=== PATIENT | male | born 1935 | race Caucasian/White ===

== ENCOUNTER → 2016-08-16 | Outpatient (CLI) | payer MEDICARE, BC ==
[~2016-08-16] MED LIST: ASPI1TAB7 PO; ATOR20TA42 PO; CLOP75 PO; ISOS60 PO; MAGN400T PO; METF-324 PO; NOVOINJ3; PRIL20TA2 PO; RANO500 PO; TAB-TAB PO; TOPR200T PO
[2016-08-16 13:12] LABS: HEMATOCRIT 34.3 % (39.0-51.0); MEAN CELL VOLUME 98.4 FL (80.0-100.0); MEAN CORPUSCULAR HEMOGLOBIN 33.1 PG (27.0-34.0); MEAN CORPUSCULAR HGB CONC 33.6 % (32.0-36.0); PLATELET COUNT 180 TH/MM3 (150-450); RED BLOOD COUNT 3.49 MIL/MM3 (4.50-5.90); RED CELL DISTRIBUTION WIDTH 16.9 % (11.6-17.2); REVIEW FLAG FINAL; WHITE BLOOD COUNT 6.8 TH/MM3 (4.0-11.0)
[2016-08-16 13:26] LABS: ALKALINE PHOSPHATASE 79 U/L (45-117); ALT (GPT) 21 U/L (12-78); ANION GAP 7 MEQ/L (5-15); AST (GOT) 18 U/L (15-37); BICARBONATE 28.2 MEQ/L (21.0-32.0); BLOOD UREA NITROGEN 20 MG/DL (7-18); CHLORIDE 102 MEQ/L (98-107); GLOMERULAR FILTRATION RATE 72 ML/MIN (>89); GLUCOSE,FASTING 122 MG/DL (74-99); HDL CHOLESTEROL 51.3 MG/DL (40.0-60.0); LDL CHOLESTEROL 26 MG/DL (0-99); LDL CHOLESTEROL DIRECT 43 MG/DL (0-99); POTASSIUM 4.3 MEQ/L (3.5-5.1); SODIUM (NA) 137 MEQ/L (136-145); TOTAL BILIRUBIN ADULT 0.6 MG/DL (0.2-1.0)
[2016-08-16 16:44] LABS: BLOOD, URINE NEG (NEG); GLUCOSE,URINE NEG (NEG); KETONE, URINE NEG (NEG); NITRITE,URINE NEG (NEG); PH, URINE 6.5 (5.0-8.5); URINE COLOR YELLOW (YELLW/STRAW)
[2016-08-16 16:56] LABS: MICRO ALBUMIN RANDOM URINE RAW 25.9 MG/L (0.0-30.0)
[2016-08-16 18:23] LABS: HEMOGLOBIN A1a 1.4 %; HEMOGLOBIN A1b 0.9 %; HEMOGLOBIN Ao 83.1 %; HEMOGLOBIN F 2.3 %; HEMOGLOBIN P3 5.2 %
== END ==
LOC: PLAB 09:06
PROVIDERS: ATTEND Family Medicine
DX: E11.9 Type 2 diabetes mellitus without complications (principal); R53.83 Other fatigue; E78.2 Mixed hyperlipidemia; I10 Essential (primary) hypertension
CPT/HCPCS: 36415; 80053; 80061; 81001; 82043; 83036; 83721; 84443; 85027

== ENCOUNTER → 2016-08-17 | Outpatient (CLI) | payer MEDICARE, BC ==
--- NOTE | 2016-08-20 11:53 | RSPPFT ---
DATE OF PROCEDURE: 08/17/16 COMMENTS: The forced vital capacity, FEV1, FEV1/FVC ratio and FEF 25-75 are all normal with no significant improvement after bronchodilator. The total lung capacity is normal with a normal residual volume and a normal RV/TLC ratio. IMPRESSION: This is a normal pulmonary function study. The diffusion capacity is also normal.
== END ==
LOC: HRSP 09:40
PROVIDERS: ATTEND Internal Medicine Cardiovascular Disease
DX: R06.02 Shortness of breath (principal)
CPT/HCPCS: 94060; 94726; 94729

== ENCOUNTER 2017-05-28 13:58 | Observation (INO) | payer MEDICARE, BC ==
[~2017-05-28] VITALS: Ht 170.2 cm; Wt 77.3 kg
[2017-05-28] VITALS (7 sets, daily range): BP systolic 108–167; BP diastolic 54–77; PULSE 69–103; RESP 16–18; TEMP 97.9–99.5; O2SAT 95–96
[~2017-05-28 13:58] MED LIST changes: +ASPI1TAB57 PO; -ASPI1TAB7 PO; -ATOR20TA42 PO; +ATOR40TA16 PO; -CLOP75 PO; +ISOS120T PO; -ISOS60 PO; +LANTUS2P SQ; +LEVA500T33 PO; +LOSA25TA PO; -MAGN400T PO; -METF-324 PO; +METF1000 PO; +METO100T PO; +MULT1TAB46 PO; -NOVOINJ3; -PRIL20TA2 PO; +RANE1000 PO; +RANI150T PO; -RANO500 PO; -TAB-TAB PO; -TOPR200T PO; +VESI5TAB2 PO; +VITA250C3 CHEW; +XARE20TA PO
--- NOTE | 2017-05-28 14:37 | PD ---
HPI Chief Complaint: Diabetic Time Seen by Provider: 14:17 Travel History International Travel<30 days: No Contact w/Intl Traveler<30days: No Traveled to known affect area: No History of Present Illness HPI 82 YO M with PMH of DMT2, A flutter, HLD, PVD, CAD s/p CABG and stents on Xarelto presents to the ED for evaluation after 2 syncopal episodes. Both episodes happened in the morning. Patient states that today the phone was ringing, he stepped out of bed attempting to answer the phone and fell to the ground. He struck his chest on a chair in the fall. He denies hitting his head or loss of consciousness. He states that he took his blood glucose which was 31. He states that he ate right away and his blood glucose was 108 shortly after. On presentation he complains of musculoskeletal pain in the anterior chest wall rated 4/10. No alleviating or exacerbating factors reported. He denies dizziness, chest pain, nausea vomiting. He also states that he is chronically short of breath, states "probably starting a year ago." He states that he had a COPD workup that was negative. He states shortness of breath has not worsened over the last few days. He estimates his Lantus dose to be 40 units nightly. He states that he just finished a course of Levaquin for a foot infection. He states that he had loose stools and nausea with the medications but denies melena or hematochezia. Endorses a history of anemia and currently taking iron supplements. Patient states tetanus immunization is up-to-date. PCP Dr. Neri, podiatry Dr. Carrillo. [facility] Past Medical History Hx Anticoagulant Therapy: Yes Arthritis: Yes Autoimmune Disease: No Blood Disorders: No Anxiety: No Depression: No Heart Rhythm Problems: No Cancer: Yes (CLL AND NOSE (SKIN)) Cardiovascular Problems: Yes High Cholesterol: Yes Chest Pain: Yes Congestive Heart Failure: No Diabetes: Yes Diminished Hearing: No GERD: Yes Genitourinary: No Hypertension: Yes Immune Disorder: No Musculoskeletal: Yes Neurologic: No Psychiatric: No Respiratory: No Myocardial Infarction: No Thyroid Disease: No Past Surgical History AICD: No Cardiac Surgery: Yes (CABG 09-27) Coronary Artery Bypass Graft: Yes (6 VESSELS [place] 2005) Joint Replacement: No Pacemaker: No Thoracic Surgery: Yes Other Surgery: Yes (LOW BACK SURGERY) Social History Alcohol Use: No Tobacco Use: No Substance Use: No Allergies-Medications (Allergen,Severity, Reaction): Coded Allergies: No Known Allergies (Verified Adverse Reaction, Unknown, 05/28/17) Reported Meds & Prescriptions Reported Meds & Active Scripts Active Reported Iron (Ferrous Sulfate) Unknown Strength Tab 1 Tab PO DAILY Novolog Inj (Insulin Aspart) 1,000 Unit/10 Ml Vial 0 SQ TIDAC Sliding Scale as directed. Metoprolol Succinate ER 24 HR (Metoprolol Succinate) 200 Mg Tab 200 Mg PO DAILY Vitamin C (Ascorbic Acid) 250 Mg Chew 500 Mg CHEW DAILY Multi Vitamin Daily (Multiple Vitamin) 1 Tab Tab 1 Tab PO DAILY Aspirin 81 (Aspirin) 81 Mg Tabdr 81 Mg PO DAILY Lantus Inj (Insulin Glargine) 1,000 Unit/10 Ml Vial 40 Units SQ HS Xarelto (Rivaroxaban) 20 Mg Tab 25 Mg PO DAILY Vesicare (Solifenacin) 5 Mg Tab 5 Mg PO DAILY Ranitidine (Ranitidine HCl) 150 Mg Tab 150 Mg PO DAILY Ranexa ER 12 HR (Ranolazine) 1,000 Mg Tab 1,000 Mg PO BID Losartan (Losartan Potassium) 25 Mg Tab 25 Mg PO DAILY Isosorbide Mononitrate ER (Isosorbide Mononitrate) 120 Mg Emeka 120 Mg PO DAILY Metformin (Metformin HCl) 1,000 Mg Tab 1,000 Mg PO BIDPC Atorvastatin (Atorvastatin Calcium) 40 Mg Tab 40 Mg PO HS Review of Systems Except as stated in HPI: all other systems reviewed are Neg Physical Exam Narrative GENERAL: Well-nourished, well-developed white male appearing younger than his stated age in no acute distress. SKIN: Focused skin assessment warm/dry. Linear skin tears on the left wrist 3. No active bleeding. No visible foreign body. HEAD: Normocephalic. Atraumatic. EYES: No scleral icterus. No injection or drainage. PERRLA. EOMI. NECK: Supple, trachea midline. No JVD or lymphadenopathy. CARDIOVASCULAR: Regular rate and rhythm without murmurs, gallops, or rubs. RESPIRATORY: Breath sounds clear and equal bilaterally. No accessory muscle use. GASTROINTESTINAL: Abdomen soft, non-tender, nondistended. Active bowel sounds RECTAL EXAM: No masses or tenderness, stool is brown. Guaiac negative MUSCULOSKELETAL: No cyanosis, or edema. FOCUSED RIGHT LOWER EXTREMITY EXAM: NEUROLOGICAL: Awake and alert. Cranial nerves II through XII intact. Motor and sensory grossly within normal limits. Five out of 5 muscle strength in all muscle groups. Normal speech. No pronator drift. BACK: Nontender without obvious deformity. No CVA tenderness. Data Data Last Documented VS Vital Signs Date Time Temp Pulse Resp B/P (MAP) Pulse Ox O2 Delivery O2 Flow Rate FiO2 05/28/17 17:17 103 167/77 (107) 05/28/17 15:12 16 17 17 05/28/17 13:59 97.9 96 Room Air Orders Orders Electrocardiogram (05/28/17 14:03) Basic Metabolic Panel (Bmp) (05/28/17 14:03) Complete Blood Count With Diff (05/28/17 14:03) Magnesium (Mg) (05/28/17 14:03) Ckmb (Isoenzyme) Profile (05/28/17 14:03) Troponin I (05/28/17 14:03) Act Partial Throm Time (Ptt) (05/28/17 14:03) Prothrombin Time / Inr (Pt) (05/28/17 14:03) Urinalysis - C+S If Indicated (05/28/17 14:03) Chest, Pa & Lat (05/28/17 14:03) Ct Brain W/O Iv Contrast(Rout) (05/28/17 14:03) Blood Glucose (05/28/17 14:38) Orthostatic Vital Signs (05/28/17 14:43) Sodium Chlor 0.9% 1000 Ml Inj (Ns 1000 M (05/28/17 16:15) Admit Order (Ed Use Only) (05/28/17 17:42) Labs Laboratory Tests Test 05/28/17 14:16 05/28/17 14:30 White Blood Count 8.0 TH/MM3 Red Blood Count 3.44 MIL/MM3 Hemoglobin 9.2 GM/DL Hematocrit 30.3 % Mean Corpuscular Volume 88.3 FL Mean Corpuscular Hemoglobin 26.8 PG Mean Corpuscular Hemoglobin Concent 30.4 % Red Cell Distribution Width 20.2 % Platelet Count 178 TH/MM3 Mean Platelet Volume 9.1 FL Neutrophils (%) (Auto) 76.9 % Lymphocytes (%) (Auto) 16.2 % Monocytes (%) (Auto) 6.3 % Eosinophils (%) (Auto) 0.4 % Basophils (%) (Auto) 0.2 % Neutrophils # (Auto) 6.1 TH/MM3 Lymphocytes # (Auto) 1.3 TH/MM3 Monocytes # (Auto) 0.5 TH/MM3 Eosinophils # (Auto) 0.0 TH/MM3 Basophils # (Auto) 0.0 TH/MM3 CBC Comment DIFF FINAL Differential Comment Prothrombin Time 15.6 SEC Prothromb Time International Ratio 1.5 RATIO Activated Partial Thromboplast Time 35.9 SEC Blood Urea Nitrogen 20 MG/DL Creatinine 0.99 MG/DL Random Glucose 72 MG/DL Calcium Level 9.2 MG/DL Magnesium Level 1.7 MG/DL Sodium Level 143 MEQ/L Potassium Level 4.9 MEQ/L Chloride Level 109 MEQ/L Carbon Dioxide Level 26.7 MEQ/L Anion Gap 7 MEQ/L Estimat Glomerular Filtration Rate 72 ML/MIN Total Creatine Kinase 43 U/L Troponin I 0.04 NG/ML Urine Color YELLOW Urine Turbidity CLEAR Urine pH 7.5 Urine Specific [place] 1.022 Urine Protein TRACE mg/dL Urine Glucose (UA) NEG mg/dL Urine Ketones NEG mg/dL Urine Occult Blood NEG Urine Nitrite NEG Urine Bilirubin NEG Urine Urobilinogen 2.0 MG/DL Urine Leukocyte Esterase NEG Urine RBC 1 /hpf Urine WBC 1 /hpf Urine Squamous Epithelial Cells 1 /hpf Urine Hyaline Casts 12 /lpf Urine Mucus FEW /lpf Microscopic Urinalysis Comment CULT NOT INDICATED MDM Medical Decision Making Medical Screen Exam Complete: Yes Emergency Medical Condition: Yes Differential Diagnosis hypoglycemia versus anemia versus arrhythmia versus metabolic derangement versus orthostatic hypotension versus ICH versus Narrative Course 82 YO M with PMH of DMT2, A flutter, HLD, PVD, CAD s/p CABG and stents on Xarelto presents to the ED for evaluation after 2 morning syncopal episodes. This morning he states he stepped out of bed attempting to answering the phone and fell to the ground, striking his chest on the chair during the fall. Denies hitting his head or LOC. Blood glucose 31 at that time. 108 after eating. On presentation he complains of anterior chest wall musculoskeletal pain rated 4/10. He states that he takes Lantus 40 units nightly. States that he just finished a course of Levaquin for a foot infection. Endorses loose stools and nausea with the medications but denies melena or hematuria hematochezia. Endorses history of anemia, currently taking iron supplements. PCP Dr. Neri, podiatry Dr. Carrillo. Vitals reviewed. Physical exam reveals a nontoxic-appearing white male in no acute distress. No focal neuro deficits. Chest CTAB. Abdomen soft and non tender. Guaiac negative on rectal exam. CBC: WBC 8.0. Hemoglobin 9.2. Hematocrit 30.3. Coags: INR 1.5. CBC: BNP 20, creatinine 0.99. Cardiac enzymes: Trop 0.04 EKG: rate 61, a flutter. ST depression in the lateral leads, worsened as compared to last EKG on record. CXR: Cardiomegaly with trace positive fluids balance. Trace bilateral pleural effusions. CT brain: Generalized atrophy without evidence of infarct hemorrhage mass or edema. Patient was administered 1 L normal saline IV. We discussed the results of the workup with the patient and his daughter. Given the EKG changes, anemia and hypoglycemia we recommended admission for further evaluation. The patient and his daughter are agreeable to this plan. I spoke with Dr. Scott who agrees to accept the patient to the medicine service. Please see medicine notes for disposition. [facility] Point of Care Internal Pos. & Neg. Controls: Passed Fecal Specimen Occult Blood: Negative Ev Feliciano May 28, 2017 14:37
[2017-05-28 14:44] LABS: AUTOMATED NEUTROPHIL # 6.1 TH/MM3 (1.8-7.7); BASOPHIL % 0.2 % (0.0-2.0); EOSINOPHIL % 0.4 % (0.0-4.0); HEMATOCRIT 30.3 % (39.0-51.0); HEMO FLAGS DIFF FINAL; LYMPH % 16.2 % (9.0-44.0); LYMPHOCYTE # 1.3 TH/MM3 (1.0-4.8); MEAN CELL VOLUME 88.3 FL (80.0-100.0); MEAN CORPUSCULAR HEMOGLOBIN 26.8 PG (27.0-34.0); MEAN CORPUSCULAR HGB CONC 30.4 % (32.0-36.0); MONO % 6.3 % (0.0-8.0); NEUT % 76.9 % (16.0-70.0); PLATELET COUNT 178 TH/MM3 (150-450); RED BLOOD COUNT 3.44 MIL/MM3 (4.50-5.90); RED CELL DISTRIBUTION WIDTH 20.2 % (11.6-17.2)
[2017-05-28 14:47] LABS: BLOOD, URINE NEG (NEG); COMMENT (UR) CULT NOT INDICATED; CULTURE IF INDICATED CULT NOT INDICATED; GLUCOSE,URINE NEG (NEG); HYALINE CAST, URINE 12 /lpf (RARE); KETONE, URINE NEG (NEG); MUCUS URINE FEW /lpf (OCC); NITRITE,URINE NEG (NEG); PH, URINE 7.5 (5.0-8.5); SQUAMOUS EPITHELIAL CELL URINE 1 /hpf (0-5); URINE COLOR YELLOW (YELLW/STRAW)
[2017-05-28 14:55] LABS: APTT (PATIENT) 35.9 SEC (24.3-30.1); INTERNATIONAL NORMALIZED RATIO 1.5 RATIO; PROTHROMBIN TIME - PATIENT 15.6 SEC (9.8-11.6)
[2017-05-28 15:06] LABS: BICARBONATE 26.7 MEQ/L (21.0-32.0); MAGNESIUM 1.7 MG/DL (1.5-2.5); POTASSIUM 4.9 MEQ/L (3.5-5.1)
--- NOTE | 2017-05-28 16:01 | RADRPT ---
EXAM DATE/TIME: 05/28/2017 14:43 [facility] COMPARISON: No previous studies available for comparison. INDICATIONS : Short of breath. MEDICAL HISTORY : Chronic obstructive pulmonary disease. Myocardial infarction. SURGICAL HISTORY : CABG. Coronary artery stent. ENCOUNTER: Initial ACUITY: >1 year PAIN SCORE: 0/10 LOCATION: Bilateral chest FINDINGS: Postsurgical features of prior median sternotomy and cardiac surgery. There is trace right pleural ef fusion with minimal associated atelectasis. Questionable small left-sided pleural effusion. Cardiac l ead is enlarged. Central pulmonary vascularity is indistinct. Bony thorax is intact. CONCLUSION: 1. Cardiomegaly with trace positive fluid balance. 2. Trace right pleural effusion with minimal right basilar associated atelectasis. 3. Probable very subtle left pleural effusion. Boyd Houston MD on May 28, 2017 at 15:57 Board Certified Radiologist. This report was verified electronically.
--- NOTE | 2017-05-28 16:12 | RADRPT ---
EXAM DATE/TIME: 05/28/2017 15:35 [facility] COMPARISON: No previous studies available for comparison. INDICATIONS : Head pain due to fall today. RADIATION DOSE: 34.46 CTDIvol (mGy) MEDICAL HISTORY : Cardiovascular disease. Hypertension. Diabetes mellitus type 2.Skin cancer. SURGICAL HISTORY : None. ENCOUNTER: Initial ACUITY: 1 day PAIN SCALE: 2/10 LOCATION: Bilateral cranial TECHNIQUE: Multiple contiguous axial images were obtained of the head. Using automated exposure control and adj ustment of the mA and/or kV according to patient size, radiation dose was kept as low as reasonably a chievable to obtain optimal diagnostic quality images. DICOM format image data is available electro nically for review and comparison. FINDINGS: CEREBRUM: Generalized volume loss with enlargement of the CSF spaces is noted. No evidence of midline shift, m ass lesion, hemorrhage or acute infarction. No extra-axial fluid collections are seen. POSTERIOR FOSSA: The cerebellum and brainstem are intact. The 4th ventricle is midline. The cerebellopontine angle i s unremarkable. EXTRACRANIAL: The visualized portion of the orbits is intact. SKULL: The calvaria is intact. No evidence of skull fracture. CONCLUSION: 1. Generalized atrophy. 2. No evidence of acute infarct, hemorrhage, mass or edema. Manuel Smith MD on May 28, 2017 at 16:09 Board Certified Radiologist. This report was verified electronically.
[2017-05-28] MEDS ORDERED: SODIUM CHLOR 0.9% 1000 ML INJ 1,000 ML IV ONE (16:15)
[2017-05-28] MEDS ORDERED: IRON18TA PO (17:26)
[2017-05-28] MEDS ORDERED: METO-393 PO (17:26)
[2017-05-28] MEDS ORDERED: NOVOLOGP2 SQ (17:26)
[2017-05-28] MEDS ORDERED: SODIUM CHLOR 0.9% 1000 ML INJ 1,000 ML IV SCH (18:21)
[2017-05-28] MEDS ORDERED: NALOXONE HCL 0.4 MG/ML AMP IV PUSH PRN (18:30)
[2017-05-28] MEDS ORDERED: SODIUM CHLORIDE 0.9% FLUSH 10 ML FLUSH IV FLUSH PRN (18:30)
[2017-05-28] MEDS ORDERED: ACETAMINOPHEN 325 MG TAB PO PRN ×2 (18:30)
[2017-05-28] MEDS: INSULIN ASPART SUPPLEMENTAL SCALE SQ SCH (21:00)
[2017-05-28] MEDS ORDERED: RANOLAZINE 1000 MG PO SCH (21:00)
--- NOTE | 2017-05-28 21:08 | HHI.HP ---
HPI Service [facility] Primary Care Physician Pramod Neri MD Admission Diagnosis anemia, hypoglycemia, near syncope Diagnoses: (1) Syncope (2) Hypoglycemia Chief Complaint: hypoglycemia and passing out Travel History International Travel<30 Days: No Contact w/Intl Traveler <30 Da: No Traveled to Known Affected Are: No History of Present Illness Written by Luh Cool, acting as scribe for Dr. Armendariz on 05/28/17 at 21:08. The patient is seen in the CDU and reports: Yesterday, he got up to answer the phone and passed out. He reports some blurry vision prior to episode. The patient states that this morning he had gotten up and eaten, fell down and checked his blood glucose and it was in the 30's. He hit his chest on a chair. Hurt the left side of his chest which impacted on the chair. Blood glucose 108, 79, 82 over the past week in the morning. Denies any fever, cough, pain with urination, burning with urination, or vomiting. He has been on antibiotic Levaquin for a foot infection and he reports that it caused some diarrhea. He felt fatigued and slept a lot also. Also with nausea. He reports that he's missed a couple of meals as a result of fatigue and increased time spent sleeping. Diarrhea occurs 4 - 5 times per day, black colored - takes iron pills. Takes 40 units of Lantus about a month ago - it was 30 units about a month ago, then 35 - change was made because HgA1C was getting higher He reports shortness of breath occurring for over a year Dr. Jamison has seen him for this. He had a "COPD" check and it was "normal" SOB occurs with exertion. Does not take oxygen at home. 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 Reported Medications Reported Meds & Active Scripts Active Reported Iron (Ferrous Sulfate) Unknown Strength Tab 1 Tab PO DAILY Novolog Inj (Insulin Aspart) 1,000 Unit/10 Ml Vial 0 SQ TIDAC Sliding Scale as directed. Metoprolol Succinate ER 24 HR (Metoprolol Succinate) 200 Mg Tab 200 Mg PO DAILY Vitamin C (Ascorbic Acid) 250 Mg Chew 500 Mg CHEW DAILY Multi Vitamin Daily (Multiple Vitamin) 1 Tab Tab 1 Tab PO DAILY Aspirin 81 (Aspirin) 81 Mg Tabdr 81 Mg PO DAILY Lantus Inj (Insulin Glargine) 1,000 Unit/10 Ml Vial 40 Units SQ HS Xarelto (Rivaroxaban) 20 Mg Tab 25 Mg PO DAILY Vesicare (Solifenacin) 5 Mg Tab 5 Mg PO DAILY Ranitidine (Ranitidine HCl) 150 Mg Tab 150 Mg PO DAILY Ranexa ER 12 HR (Ranolazine) 1,000 Mg Tab 1,000 Mg PO BID Losartan (Losartan Potassium) 25 Mg Tab 25 Mg PO DAILY Isosorbide Mononitrate ER (Isosorbide Mononitrate) 120 Mg Emeka 120 Mg PO DAILY Metformin (Metformin HCl) 1,000 Mg Tab 1,000 Mg PO BIDPC Atorvastatin (Atorvastatin Calcium) 40 Mg Tab 40 Mg PO HS . Allergies: Coded Allergies: No Known Allergies (Verified Adverse Reaction, Unknown, 06/04/17) Active Ordered Medications Current Medications Sodium Chloride 1,000 ml @ 999 mls/hr BOLUS ONCE IV Last administered on 05/28 16:54; Start 05/28/17 at 16:15; Stop 05/28/17 at 17:15; Status DC Insulin Aspart (NovoLOG SUPPLEMENTAL SCALE) 1 ACHS SLIDING SCALE SQ ; Start at 21:00 Sodium Chloride 1,000 ml @ 100 mls/hr Q10H IV Last administered on 05/28/17 18:52; Start 05/28/17 at 18:21; Stop 05/28/17 at 20:08; Status DC Sodium Chloride (NS Flush) 2 ml UNSCH PRN IV FLUSH FLUSH AFTER USING IV ACCESS ; Start 05/28/17 at 18:30 Sodium Chloride (NS Flush) 2 ml BID IV FLUSH ; Start 05/28/17 at 21:00 Acetaminophen (Tylenol) 650 mg Q4H PRN PO TEMP > 100.4; Start 05/28/17 at 18:30 Acetaminophen (Tylenol) 650 mg Q6H PRN PO PAIN SCALE 1 TO 2; Start 05/28/17 at 18:30 Naloxone HCl (Narcan Inj) 0.4 mg UNSCH PRN IV PUSH SEE LABEL COMMENTS; Start 05/28/17 at 18:30 Senna/Docusate Sodium (Violeta-Colace) 1 tab BID PO ; Start 05/28/17 at 21:00 Aspirin (Ecotrin Ec) 81 mg DAILY PO ; Start 05/29/17 at 09:00 Atorvastatin Calcium (Lipitor) 40 mg HS PO ; Start 05/28/17 at 21:00 Isosorbide Mononitrate (Imdur) 120 mg DAILY@0700 PO ; Start 05/29/17 at 07:00 Losartan Potassium (Cozaar) 25 mg DAILY PO ; Start 05/29/17 at 09:00 Rivaroxaban (Xarelto) 20 mg DAILY PO ; Start 05/29/17 at 09:00 Ascorbic Acid (Vitamin C) 500 mg DAILY PO ; Start 05/29/17 at 09:00 Ferrous Sulfate (Ferrous Sulfate) 325 mg DAILY PO ; Start 05/29/17 at 09:00 Metoprolol Succinate (Toprol Xl) 200 mg DAILY PO ; Start 05/29/17 at 09:00 Multivitamins (Theragran) 1 tab DAILY PO ; Start 05/29/17 at 09:00 Non-Formulary Medication 150 mg DAILY PO ; Start 05/29/17 at 09:00; Status UNV Non-Formulary Medication 1,000 mg BID PO ; Start 05/28/17 at 21:00; Status UNV Non-Formulary Medication 5 mg DAILY PO ; Start 05/29/17 at 09:00; Status UNV Famotidine (Pepcid) 20 mg DAILY PO ; Start 05/29/17 at 09:00 Tolterodine Tartrate (Detrol La) 2 mg DAILY PO ; Start 05/29/17 at 09:00 Ranolazine (Ranexa) 1,000 mg BID PO ; Start 05/28/17 at 21:00 . Family History Mother had heart disease, age 85 . Social History Tobacco: smoked 30 years ago Alcohol: denies Illicit Drugs: denies . Physical Exam Vital Signs Vital Signs Date Time Temp Pulse Resp B/P (MAP) Pulse Ox O2 Delivery O2 Flow Rate FiO2 05/28/17 20:21 98.1 69 18 130/60 (83) 95 05/28/17 19:01 05/28/17 17:17 103 167/77 (107) 05/28/17 15:12 62 16 134/63 (86) 62 17 127/57 (80) 84 17 122/60 (80) 05/28/17 13:59 97.9 80 18 129/62 (84) 96 Room Air Physical Exam GENERAL: This is an elderly male patient, in no apparent distress. SKIN: No rashes. Cool and dry. Right 5th digit with eschar lesion appx dime sized. HEAD: Atraumatic. Normocephalic. EYES: No scleral icterus. No injection or drainage. ENT: Nose without bleeding, purulent drainage. NECK: Trachea midline. No JVD. CARDIOVASCULAR: Regular rate and rhythm without murmurs, gallops, or rubs. Right ankle + 1 pitting edema, trace on left ankle. RESPIRATORY: Breath sounds equal bilaterally. No wheezes or rhonchi. Few, fine , scattered crepitations at bases. GASTROINTESTINAL: Abdomen soft, non-tender, nondistended. No guarding. MUSCULOSKELETAL: Extremities without clubbing, cyanosis. No calf tenderness. Right foot with all toes amputated. NEUROLOGICAL: Awake and alert. Cognitively sharp. Motor and sensory grossly within normal limits. Normal speech. . Laboratory Laboratory Tests Test 05/28/17 14:16 05/28/17 14:30 White Blood Count 8.0 Red Blood Count 3.44 Hemoglobin 9.2 Hematocrit 30.3 Mean Corpuscular Volume 88.3 Mean Corpuscular Hemoglobin 26.8 Mean Corpuscular Hemoglobin Concent 30.4 Red Cell Distribution Width 20.2 Platelet Count 178 Mean Platelet Volume 9.1 Neutrophils (%) (Auto) 76.9 Lymphocytes (%) (Auto) 16.2 Monocytes (%) (Auto) 6.3 Eosinophils (%) (Auto) 0.4 Basophils (%) (Auto) 0.2 Neutrophils # (Auto) 6.1 Lymphocytes # (Auto) 1.3 Monocytes # (Auto) 0.5 Eosinophils # (Auto) 0.0 Basophils # (Auto) 0.0 CBC Comment DIFF FINAL Differential Comment Prothrombin Time 15.6 Prothromb Time International Ratio 1.5 Activated Partial Thromboplast Time 35.9 Blood Urea Nitrogen 20 Creatinine 0.99 Random Glucose 72 Calcium Level 9.2 Magnesium Level 1.7 Sodium Level 143 Potassium Level 4.9 Chloride Level 109 Carbon Dioxide Level 26.7 Anion Gap 7 Estimat Glomerular Filtration Rate 72 Total Creatine Kinase 43 Troponin I 0.04 Urine Color YELLOW Urine Turbidity CLEAR Urine pH 7.5 Urine Specific [place] 1.022 Urine Protein TRACE Urine Glucose (UA) NEG Urine Ketones NEG Urine Occult Blood NEG Urine Nitrite NEG Urine Bilirubin NEG Urine Urobilinogen 2.0 Urine Leukocyte Esterase NEG Urine RBC 1 Urine WBC 1 Urine Squamous Epithelial Cells 1 Urine Hyaline Casts 12 Urine Mucus FEW Microscopic Urinalysis Comment CULT NOT INDICATED Result Diagram: 05/28/17 1416 05/28/17 1416 Imaging Last Impressions Head CT 05/28/17 1403 Signed Impressions: Service Date/Time: Sunday, May 28, 2017 15:35 - CONCLUSION: 1. Generalized atrophy. 2. No evidence of acute infarct, hemorrhage, mass or edema. Manuel Smith MD Chest X-Ray 05/28/17 140 Signed Impressions: Service Date/Time: Sunday, May 28, 2017 14:43 - CONCLUSION: 1. Cardiomegaly with trace positive fluid balance. 2. Trace right pleural effusion with minimal right basilar associated atelectasis. 3. Probable very subtle left pleural effusion. Boyd Houston MD . Caprini VTE Risk Assessment Caprini VTE Risk Assessment: Mod/High Risk (score >= 2) Caprini Risk Assessment Model Point Value = 1 Point Value = 2 Point Value = 3 Point Value = 5 Age 41-60 Minor surgery BMI > 25 kg/m2 Swollen legs Varicose veins or History of unexplained or recurrent spontaneous Oral contraceptives or hormone replacement Sepsis (< 1 month) Serious lung disease, including pneumonia (< 1 month) Abnormal pulmonary function Acute myocardial infarction Congestive heart failure (< 1 month) History of inflammatory bowel disease Medical patient at bed rest Age 61-74 Arthroscopic surgery Major open surgery (> 45 min) Laparoscopic surgery (> 45 min) Malignancy Confined to bed (> 72 hours) Immobilizing plaster cast Central venous access Age >= 75 History of VTE Family history of VTE Factor V Leiden Prothrombin [id number] Lupus anticoagulant Anticardiolipin antibodies Elevated serum homocysteine Heparin-induced thrombocytopenia Other congenital or acquired thrombophilia Stroke (< 1 month) Elective arthroplasty Hip, pelvis, or leg fracture Acute spinal cord injury (< 1 month) Prophylaxis Regimen Total Risk Factor Score Risk Level Prophylaxis Regimen 0-1 Low Early ambulation 2 Moderate Order ONE of the following: *Sequential Compression Device (SCD) *Heparin 5000 units SQ BID 3-4 Higher Order ONE of the following medications: *Heparin 5000 units SQ TID *Enoxaparin/Lovenox 40 mg SQ daily (WT < 150 kg, CrCl > 30 mL/min) *Enoxaparin/Lovenox 30 mg SQ daily (WT < 150 kg, CrCl > 10-29 mL/min) *Enoxaparin/Lovenox 30 mg SQ BID (WT < 150 kg, CrCl > 30 mL/min) AND/OR *Sequential Compression Device (SCD) 5 or more Highest Order ONE of the following medications: *Heparin 5000 units SQ TID (Preferred with Epidurals) *Enoxaparin/Lovenox 40 mg SQ daily (WT < 150 kg, CrCl > 30 mL/min) *Enoxaparin/Lovenox 30 mg SQ daily (WT < 150 kg, CrCl > 10-29 mL/min) *Enoxaparin/Lovenox 30 mg SQ BID (WT < 150 kg, CrCl > 30 mL/min) AND *Sequential Compression Device (SCD) Assessment and Plan Problem List: (1) Syncope ICD Code: R55 - Syncope and collapse (2) Hypoglycemia ICD Code: E16.2 - Hypoglycemia, unspecified (3) DM type 2, uncontrolled, with neuropathy ICD Code: E11.40 - Type 2 diabetes mellitus with diabetic neuropathy, unspecified; E11.65 - Type 2 diabetes mellitus with hyperglycemia Status: Acute (4) Anemia ICD Code: D64.9 - Anemia, unspecified Status: Chronic (5) Shortness of breath ICD Code: R06.02 - Shortness of breath (6) CHF (congestive heart failure) ICD Code: I50.9 - Heart failure, unspecified (7) Diarrhea ICD Code: R19.7 - Diarrhea, unspecified Assessment and Plan Mr. Wilder is a pleasant 82 y/o male with a history of CAD s/p CABG x 6, and Type 2 DM who presented to the ED on 05/28/17 following syncopal episodes x 2 at home. His blood glucose was 31. He recently was told to increase his home lantus and he went from 30 to 35 to 40 units over the past month. He also has had diarrhea and nausea along with increase sleepiness causing meals to get missed. He is admitted for further medical management. Syncope most likely secondary to hypoglycemia due to increase in Lantus and diminished oral intake with recent Levaquin for right toe infection - Hold Lantus - monitor blood glucose q4h - verbally ordered - Hypoglycemia protocol - verbally ordered - continuous cardiac telemetry to monitor for arrhythmia - check orthostatic blood pressure Type 2 Diabetes Mellitus - Accu-Cheks q4h with low-dose NovoLog sliding scale coverage - Hypoglycemia protocol - Monitor trends and blood glucose readings and adjust treatments as indicated Shortness of breath CHF - CXR demonstrates mild positive fluid balance; trace right pleural effusion with minimal right basilar atelectasis; probably very subtle left pleural effusion. - Hold IV fluids - Echocardiogram to check cardiac structure and function- verbally ordered Anemia, chronic - Hgb 9.2/HCT 30.3 - resume home iron (patient stopped it recently and then resumed recently) - recheck CBC in a.m. Diarrhea and nausea - stool negative for OB in ED per Dr. Cruz's noteecho - check stool for c. difficile - verbally ordered DVT prophylaxis - continue home Xarelto This note was transcribed by analia [Luh Cool]. I, Dr. Xochitl Armendariz personally performed the history, physical exam, and medical decision making; and confirmed the accuracy of the information in the transcribed note. Authenticated by Dr. Xochitl Armendariz on 05/28/17 at 21:08. Discussed Condition With Patient and RN . Luh Cool May 28, 2017 21:08 Xochitl Armendariz MD Jun 06, 2017 14:23
[2017-05-28] MEDS ORDERED: GLUCAGON 1 MG/ML VIAL OTHER PRN (21:15)
[2017-05-28] MEDS ORDERED: DEXTROSE 50% IN WATER 50 ML VIAL(D50) IV PUSH PRN (21:15)
--- NOTE | 2017-05-28 21:53 | EKG ---
Date Performed: 05/28/2017 Time Performed: 14:15:04 PTAGE: 82 years EKG: POSSIBLE Sinus rhythm NONSPECIFIC ST & T-WAVE ABNORMALITY ABNORMAL ECG Compared to prior tracing no significant change DOCTOR: Jamison Sanford Interpretating Date/Time 05/28/2017 21:53:00
[2017-05-28] MEDS: RANOLAZINE 500 MG EXTENDED RELEASE TAB PO SCH (22:41)
[2017-05-28] MEDS: ATORVASTATIN 40 MG TAB PO SCH (22:42)
[2017-05-28] MEDS: DOCUSATE SODIUM 50 MG/SENNA 8.6 MG TAB PO SCH (22:42)
[2017-05-28] MEDS: SODIUM CHLORIDE 0.9% FLUSH 10 ML FLUSH IV FLUSH SCH (22:42)
[2017-05-29] VITALS (11 sets, daily range): BP systolic 109–146; BP diastolic 53–65; PULSE 60–84; RESP 18–24; TEMP 97.6–98.1; O2SAT 92–100
[2017-05-29 05:37] LABS: AUTOMATED NEUTROPHIL # 5.2 TH/MM3 (1.8-7.7); BASOPHIL % 0.4 % (0.0-2.0); EOSINOPHIL # 0.1 TH/MM3 (0-0.4); EOSINOPHIL % 0.8 % (0.0-4.0); HEMATOCRIT 26.1 % (39.0-51.0); HEMO FLAGS DIFF FINAL; LYMPHOCYTE # 0.8 TH/MM3 (1.0-4.8); MEAN CELL VOLUME 87.8 FL (80.0-100.0); MEAN CORPUSCULAR HEMOGLOBIN 27.5 PG (27.0-34.0); MEAN CORPUSCULAR HGB CONC 31.3 % (32.0-36.0); MONO % 5.6 % (0.0-8.0); NEUT % 81.2 % (16.0-70.0); PLATELET COUNT 132 TH/MM3 (150-450); RED BLOOD COUNT 2.97 MIL/MM3 (4.50-5.90); RED CELL DISTRIBUTION WIDTH 19.8 % (11.6-17.2); WHITE BLOOD COUNT 6.4 TH/MM3 (4.0-11.0)
[2017-05-29 06:04] LABS: ALKALINE PHOSPHATASE 75 U/L (45-117); ALT (GPT) 14 U/L (12-78); ANION GAP 6 MEQ/L (5-15); AST (GOT) 10 U/L (15-37); BICARBONATE 23.9 MEQ/L (21.0-32.0); BLOOD UREA NITROGEN 23 MG/DL (7-18); CHLORIDE 109 MEQ/L (98-107); GLOMERULAR FILTRATION RATE 67 ML/MIN (>89); POTASSIUM 4.9 MEQ/L (3.5-5.1); SODIUM (NA) 139 MEQ/L (136-145); TOTAL BILIRUBIN ADULT 0.5 MG/DL (0.2-1.0)
[2017-05-29] MEDS: ISOSORBIDE MONONITRATE 60 MG TAB PO SCH (06:36)
[2017-05-29] MEDS: INSULIN ASPART SUPPLEMENTAL SCALE SQ SCH ×4 (08:00→23:11)
[2017-05-29] MEDS ORDERED: NON-FORMULARY DRUG (Solifenacin (Vesicare) 5 MG) PO SCH (09:00)
[2017-05-29] MEDS: LOSARTAN 25 MG TAB PO SCH (09:00)
[2017-05-29] MEDS ORDERED: NON-FORMULARY DRUG (Ranitidine 150 MG) PO SCH (09:00)
[2017-05-29] MEDS: DOCUSATE SODIUM 50 MG/SENNA 8.6 MG TAB PO SCH ×2 (09:36→22:49)
[2017-05-29] MEDS: FAMOTIDINE 20 MG TAB PO SCH (09:36)
[2017-05-29] MEDS: TOLTERODINE TARTRATE 2 MG CAP LA PO SCH (09:36)
[2017-05-29] MEDS: RIVAROXABAN 20 MG TAB PO SCH (09:36)
[2017-05-29] MEDS: METOPROLOL SUCCINATE 50 MG EXTENDED RELEASE TAB PO SCH (09:36)
[2017-05-29] MEDS: RANOLAZINE 500 MG EXTENDED RELEASE TAB PO SCH ×2 (09:36→22:49)
[2017-05-29] MEDS: ASPIRIN EC 81 MG TABEC PO SCH (09:36)
[2017-05-29] MEDS: ASCORBIC ACID 500 MG TAB PO SCH (09:36)
[2017-05-29] MEDS: SODIUM CHLORIDE 0.9% FLUSH 10 ML FLUSH IV FLUSH SCH ×2 (09:37→21:00)
[2017-05-29] MEDS: FERROUS SULFATE 325 MG (65 MG ELEMENTAL IRON) TAB PO SCH (09:37)
[2017-05-29] MEDS: MULTIVITAMIN TAB PO SCH (09:37)
--- NOTE | 2017-05-29 11:01 | HHI.PR ---
Subjective Remarks The patient was resting comfortably in his room. His daughter was at the bedside. Her questions were answered. The patient notes that his legs have been swelling lately. He gets shortness of breath with minimal exertion. He has an appointment with his security messenger next week. Objective Vitals Vital Signs Date Time Temp Pulse Resp B/P (MAP) Pulse Ox O2 Delivery O2 Flow Rate FiO2 05/29/17 08:23 97 05/29/17 07:27 97.6 63 20 109/53 (71) 97 05/29/17 03:53 98.0 84 18 122/61 (81) 93 05/29/17 03:48 79 05/29/17 00:00 63 05/28/17 23:59 95 05/28/17 23:32 99.5 73 18 138/60 (86) 95 05/28/17 21:30 137/61 (86) 108/54 (72) 115/56 (75) 05/28/17 20:21 98.1 69 18 130/60 (83) 95 05/28/17 19:01 05/28/17 17:17 103 167/77 (107) 05/28/17 15:12 62 16 134/63 (86) 62 17 127/57 (80) 84 17 122/60 (80) 05/28/17 13:59 97.9 80 18 129/62 (84) 96 Room Air I/O 05/28/17 05/28/17 05/28/17 05/29/17 05/29/17 05/29/17 07:00 15:00 23:00 07:00 15:00 23:00 Intake Total 1100 ml Balance 1100 ml Intake IV Total 1100 ml Result Diagram: 05/29/17 0516 05/29/17 0516 Imaging Last Impressions Head CT 05/28/17 1403 Signed Impressions: Service Date/Time: Sunday, May 28, 2017 15:35 - CONCLUSION: 1. Generalized atrophy. 2. No evidence of acute infarct, hemorrhage, mass or edema. Manuel Smith MD Chest X-Ray 05/28/17 1403 Signed Impressions: Service Date/Time: Sunday, May 28, 2017 14:43 - CONCLUSION: 1. Cardiomegaly with trace positive fluid balance. 2. Trace right pleural effusion with minimal right basilar associated atelectasis. 3. Probable very subtle left pleural effusion. Boyd Houston MD Objective Remarks GENERAL: This is an elderly male patient, in no apparent distress. SKIN: No rashes. Cool and dry. Right 5th digit with eschar lesion, appx dime sized. HEAD: Atraumatic. Normocephalic. EYES: No scleral icterus. No injection or drainage. ENT: Nose without bleeding, purulent drainage. NECK: Trachea midline. No JVD. CARDIOVASCULAR: Regular rate and rhythm with systolic murmur appreciated. RESPIRATORY: Crackles at the bases. GASTROINTESTINAL: Abdomen soft, non-tender, nondistended. No guarding. MUSCULOSKELETAL: Extremities without clubbing, cyanosis. Right foot with all toes amputated. 1+ LE edema. NEUROLOGICAL: Awake and alert. Cognitively sharp. Motor and sensory grossly within normal limits. Normal speech. PSYCH: Mood and affect appropriate. Medications and IVs Current Medications Medications (Trade) Dose Ordered Sig/Hilary Route Start Time Stop Time Status Last Admin (NovoLOG SUPPLEMENTAL SCALE) 1 ACHS SLIDING SCALE SQ 05/28/17 21:00 05/29/17 12:00 (NS Flush) 2 ml UNSCH PRN IV FLUSH 05/28/17 18:30 (NS Flush) 2 ml BID IV FLUSH 05/28/17 21:00 05/29/17 09:37 (Tylenol) 650 mg Q4H PRN PO 05/28/17 18:30 (Tylenol) 650 mg Q6H PRN PO 05/28/17 18:30 (Narcan Inj) 0.4 mg UNSCH PRN IV PUSH 05/28/17 18:30 (Violeta-Colace) 1 tab BID PO 05/28/17 21:00 05/29/17 09:36 (Ecotrin Ec) 81 mg DAILY PO 05/29/17 09:00 05/29/17 09:36 (Lipitor) 40 mg HS PO 05/28/17 21:00 05/28/17 22:42 (Imdur) 120 mg DAILY@0700 PO 05/29/17 07:00 05/29/17 06:36 (Cozaar) 25 mg DAILY PO 05/29/17 09:00 (Xarelto) 20 mg DAILY PO 05/29/17 09:00 05/29/17 09:36 (Vitamin C) 500 mg DAILY PO 05/29/17 09:00 05/29/17 09:36 (Ferrous Sulfate) 325 mg DAILY PO 05/29/17 09:00 05/29/17 09:37 (Toprol Xl) 200 mg DAILY PO 05/29/17 09:00 05/29/17 09:36 (Theragran) 1 tab DAILY PO 05/29/17 09:00 05/29/17 09:37 (Pepcid) 20 mg DAILY PO 05/29/17 09:00 05/29/17 09:36 (Detrol La) 2 mg DAILY PO 05/29/17 09:00 05/29/17 09:36 (Ranexa) 1,000 mg BID PO 05/28/17 21:00 05/29/17 09:36 (D50w (Vial) Inj) 50 ml UNSCH PRN IV PUSH 05/28/17 21:15 (Glucagon Inj) 1 mg UNSCH PRN OTHER 05/28/17 21:15 (Levemir Inj) 10 units Q12HR SQ 05/29/17 11:45 05/29/17 11:45 (Lasix Inj) 20 mg BID@09,18 IV PUSH 05/29/17 13:00 UNV A/P Problem List: (1) Syncope ICD Code: R55 - Syncope and collapse (2) Hypoglycemia ICD Code: E16.2 - Hypoglycemia, unspecified (3) DM type 2, uncontrolled, with neuropathy ICD Code: E11.40 - Type 2 diabetes mellitus with diabetic neuropathy, unspecified; E11.65 - Type 2 diabetes mellitus with hyperglycemia Status: Acute (4) Anemia ICD Code: D64.9 - Anemia, unspecified Status: Chronic (5) Shortness of breath ICD Code: R06.02 - Shortness of breath (6) CHF (congestive heart failure) ICD Code: I50.9 - Heart failure, unspecified (7) Diarrhea ICD Code: R19.7 - Diarrhea, unspecified Assessment and Plan Mr. Wilder is a pleasant 82 y/o male with a history of CAD s/p CABG x 6, and Type 2 DM who presented to the ED on 05/28/17 following syncopal episodes x 2 at home. His blood glucose was 31. He recently was told to increase his home Lantus and he went from 30 to 35 to 40 units over the past month. He also has had diarrhea and nausea along with increased sleepiness causing meals to get missed. He believes his recent course of Levaquin was to blame for that. Syncope most likely secondary to hypoglycemia due to increase in Lantus and diminished oral intake with recent Levaquin for right toe infection - resume Lantus at 10 units BID and monitor. - monitor blood glucose q4h - Hypoglycemia protocol - continuous cardiac telemetry to monitor for arrhythmia - follow orthostatic blood pressure Type 2 Diabetes Mellitus - Accu-Cheks q4h with low-dose NovoLog sliding scale coverage - Hypoglycemia protocol - Monitor trends and blood glucose readings and adjust treatments as indicated Shortness of breath/ CHF - CXR demonstrates mild positive fluid balance; trace right pleural effusion with minimal right basilar atelectasis; probably very subtle left pleural effusion. BNP elevated. Echo with reduced EF. - Lasix 20 mg IV BID. - outpt cardiology follow-up. Anemia, chronic - Hgb 9.2/HCT 30.3 - resume home iron (patient stopped it recently and then resumed recently) - recheck CBC in a.m. - check iron studies, B12, folate levels, Hemoccult. Diarrhea and nausea S/t Levaquin. - d/c Levaquin DVT prophylaxis - continue home Xarelto Discharge Planning Await diuresis. Anticipate 1-2 days Wero Scott DO May 29, 2017 11:01
[2017-05-29] MEDS: INSULIN DETEMIR 100 UNITS/ML VIAL SQ SCH ×2 (11:45→23:11)
--- NOTE | 2017-05-29 12:47 | ECHRPT ---
Indication: CHF CONCLUSIONS Mildly dilated left ventricle. Mild concentric left ventricular hypertrophy. The left ventricular systolic function is moderate-to- severly reduced with an estimated ejection fraction in the range of 35-40%. Akinetic apex and [id number] anterior wall. The right ventriclar size is upper limits of normal. Mild thickening of the mitral valve leaflets. Mitral annular calcification is present. Mild mitral valve regurgitation. Aortic valve sclerosis is present. There is trace tricuspid valve regurgitation. The estimated pulmonary arterial pressure is 25 mmHg. The pulmonary valve is not well visualized. BP: 122 / 61 HR: 84 Rhythm: MEASUREMENTS (Male / Female) Normal Values Technical Quality:Good 2D ECHO LV Diastolic Diameter PLAX 5.1 cm 4.2 - 5.9 / 3.9 - 5.3 cm LV Systolic Diameter PLAX 4.5 cm IVS Diastolic Thickness 1.7 cm 0.6 - 1.0 / 0.6 - 0.9 cm LVPW Diastolic Thickness 0.8 cm 0.6 - 1.0 / 0.6 - 0.9 cm LV Relative Wall Thickness 0.5 RV Internal Dim ED PLAX 3.8 cm LA Systolic Diameter LX 4.3 cm 3.0 - 4.0 / 2.7 - 3.8 cm DOPPLER AV Peak Velocity 288.0 cm/s AV Peak Gradient 33.2 mmHg AV Mean Gradient 15.0 mmHg AV Velocity Time Integral 62.3 cm LVOT Peak Velocity 66.2 cm/s LVOT Peak Gradient 1.8 mmHg LVOT Velocity Time Integral 14.3 cm MV Peak Velocity 122.5 cm/s MV Peak Gradient 6.0 mmHg MV Mean Velocity 67.3 cm/s MV Mean Gradient 2.0 mmHg Mitral E Point Velocity 105.0 cm/s Mitral A Point Velocity 51.3 cm/s Mitral E to A Ratio 2.0 TR Peak Velocity 221.0 cm/s TR Peak Gradient 19.5 mmHg FINDINGS LEFT VENTRICLE Mildly dilated left ventricle. Mild concentric left ventricular hypertrophy. The left ventricular systolic function is moderate-to- severly reduced with an estimated ejection fraction in the range of 35-40%. Akinetic apex and [id number] anterior wall. RIGHT VENTRICLE The right ventriclar size is upper limits of normal. LEFT ATRIUM The left atrial size is normal. RIGHT ATRIUM The right atrial size is normal. ATRIAL SEPTUM Normal atrial septal thickness without atrial level shunting by limited color doppler interrogation. AORTA The aortic root and proximal ascending aorta are normal in size on limited imaging. MITRAL VALVE Mild thickening of the mitral valve leaflets. Mitral annular calcification is present. Mild mitral valve regurgitation. AORTIC VALVE Aortic valve sclerosis is present. TRICUSPID VALVE There is trace tricuspid valve regurgitation. The estimated pulmonary arterial pressure is 25 mmHg. PULMONARY VALVE The pulmonary valve is not well visualized. VESSELS The inferior vena cava is normal in size. PERICARDIUM No pericardial effusion. Dejon White MD, FACC (Electronically Signed) Final Date:29 May 2017 12:46
[2017-05-29] MEDS: FUROSEMIDE 20 MG/2 ML VIAL IV PUSH SCH ×2 (15:45→17:54)
[2017-05-29 16:19] LABS: FERRITIN 60 NG/ML (26-388); TRANSFERRIN IRON PROFILE 213 MG/DL (200-360)
[2017-05-29 17:39] LABS: HEMOGLOBIN A1a 1.6 %; HEMOGLOBIN F 1.8 %; HEMOGLOBIN LA1C 2.8 %; HEMOGLOBIN P3 5.4 %
[2017-05-29] MEDS: ATORVASTATIN 40 MG TAB PO SCH (22:49)
[2017-05-30] VITALS (13 sets, daily range): BP systolic 113–128; BP diastolic 56–64; PULSE 66–78; RESP 17–24; TEMP 97.5–98.6; O2SAT 91–100
[2017-05-30 05:03] LABS: HEMATOCRIT 26.3 % (39.0-51.0); MEAN CELL VOLUME 86.5 FL (80.0-100.0); MEAN CORPUSCULAR HEMOGLOBIN 27.5 PG (27.0-34.0); MEAN CORPUSCULAR HGB CONC 31.8 % (32.0-36.0); PLATELET COUNT 148 TH/MM3 (150-450); RED BLOOD COUNT 3.04 MIL/MM3 (4.50-5.90); REVIEW FLAG FINAL; WHITE BLOOD COUNT 5.9 TH/MM3 (4.0-11.0)
[2017-05-30 05:27] LABS: BICARBONATE 25.6 MEQ/L (21.0-32.0); MAGNESIUM 1.4 MG/DL (1.5-2.5); POTASSIUM 3.8 MEQ/L (3.5-5.1)
[2017-05-30] MEDS: ISOSORBIDE MONONITRATE 60 MG TAB PO SCH (06:06)
[2017-05-30] MEDS: INSULIN ASPART SUPPLEMENTAL SCALE SQ SCH ×4 (08:00→21:38)
[2017-05-30] MEDS: METOPROLOL SUCCINATE 50 MG EXTENDED RELEASE TAB PO SCH (10:24)
[2017-05-30] MEDS: ASCORBIC ACID 500 MG TAB PO SCH (10:25)
[2017-05-30] MEDS: FERROUS SULFATE 325 MG (65 MG ELEMENTAL IRON) TAB PO SCH (10:25)
[2017-05-30] MEDS: FUROSEMIDE 20 MG/2 ML VIAL IV PUSH SCH ×2 (10:25→17:31)
--- NOTE | 2017-05-30 10:25 | HHI.PR ---
Subjective Remarks The patient was resting comfortably in bed. He states the breathing was the same. He did say that his legs seem less swollen. No other acute complaints. Objective Vitals Vital Signs Date Time Temp Pulse Resp B/P (MAP) Pulse Ox O2 Delivery O2 Flow Rate FiO2 05/30/17 08:08 68 05/30/17 07:46 98.4 69 24 128/60 (82) 91 116/60 (78) 116/60 (78) 05/30/17 04:37 21 05/30/17 04:11 98.6 67 18 115/56 (75) 92 05/30/17 03:44 68 05/30/17 00:21 98.2 66 18 113/61 (78) 94 05/30/17 00:05 67 05/29/17 20:10 97.9 76 18 146/65 (92) 100 05/29/17 19:20 67 05/29/17 15:57 98.1 64 20 112/64 (80) 95 05/29/17 15:00 70 05/29/17 11:57 98.0 67 24 124/58 (80) 92 I/O 05/29/17 05/29/17 05/29/17 05/30/17 05/30/17 05/30/17 07:00 15:00 23:00 07:00 15:00 23:00 Intake Total 750 ml Output Total 950 ml Balance -200 ml Intake Oral 750 ml Output Urine Total 950 ml # Voids 3 1 Result Diagram: 05/30/172 05/30/17 0442 Imaging Last Impressions Head CT 05/28/171402 Signed Impressions: Service Date/Time: Sunday, May 28, 2017 15:35 - CONCLUSION: 1. Generalized atrophy. 2. No evidence of acute infarct, hemorrhage, mass or edema. Manuel Smith MD Chest X-Ray 05/28/17 140 Signed Impressions: Service Date/Time: Sunday, May 28, 2017 14:43 - CONCLUSION: 1. Cardiomegaly with trace positive fluid balance. 2. Trace right pleural effusion with minimal right basilar associated atelectasis. 3. Probable very subtle left pleural effusion. Boyd Houston MD Objective Remarks GENERAL: This is an elderly male patient, in no apparent distress. SKIN: No rashes. Cool and dry. Right 5th digit with eschar lesion, appx dime sized. HEAD: Atraumatic. Normocephalic. EYES: No scleral icterus. No injection or drainage. ENT: Nose without bleeding, purulent drainage. NECK: Trachea midline. No JVD. CARDIOVASCULAR: Regular rate and rhythm with systolic murmur appreciated. RESPIRATORY: Clear to auscultation bilaterally. GASTROINTESTINAL: Abdomen soft, non-tender, nondistended. No guarding. MUSCULOSKELETAL: Extremities without clubbing, cyanosis. Right foot with all toes amputated. TR LE edema. NEUROLOGICAL: Awake and alert. Cognitively sharp. Motor and sensory grossly within normal limits. Normal speech. PSYCH: Mood and affect appropriate. Procedures None Medications and IVs Current Medications Medications (Trade) Dose Ordered Sig/Hilary Route Start Time Stop Time Status Last Admin (NovoLOG SUPPLEMENTAL SCALE) 1 ACHS SLIDING SCALE SQ 05/28/17 21:00 05/29/17 23:11 (NS Flush) 2 ml UNSCH PRN IV FLUSH 05/28/17 18:30 (NS Flush) 2 ml BID IV FLUSH 05/28/17 21:00 05/29/17 21:00 (Tylenol) 650 mg Q4H PRN PO 05/28/17 18:30 (Tylenol) 650 mg Q6H PRN PO 05/28/17 18:30 (Narcan Inj) 0.4 mg UNSCH PRN IV PUSH 05/28/17 18:30 (Violeta-Colace) 1 tab BID PO 05/28/17 21:00 05/29/17 22:49 (Ecotrin Ec) 81 mg DAILY PO 05/29/17 09:00 05/29/17 09:36 (Lipitor) 40 mg HS PO 05/28/17 21:00 05/29/17 22:49 (Imdur) 120 mg DAILY@0700 PO 05/29/17 07:00 05/30/17 06:06 (Cozaar) 25 mg DAILY PO 05/29/17 09:00 (Xarelto) 20 mg DAILY PO 05/29/17 09:00 05/29/17 09:36 (Vitamin C) 500 mg DAILY PO 05/29/17 09:00 05/29/17 09:36 (Ferrous Sulfate) 325 mg DAILY PO 05/29/17 09:00 05/29/17 09:37 (Toprol Xl) 200 mg DAILY PO 05/29/17 09:00 05/29/17 09:36 (Theragran) 1 tab DAILY PO 05/29/17 09:00 05/29/17 09:37 (Pepcid) 20 mg DAILY PO 05/29/17 09:00 05/29/17 09:36 (Detrol La) 2 mg DAILY PO 05/29/17 09:00 05/29/17 09:36 (Ranexa) 1,000 mg BID PO 05/28/17 21:00 05/29/17 22:49 (D50w (Vial) Inj) 50 ml UNSCH PRN IV PUSH 05/28/17 21:15 (Glucagon Inj) 1 mg UNSCH PRN OTHER 05/28/17 21:15 (Levemir Inj) 10 units Q12HR SQ 05/29/17 11:45 05/29/17 23:11 (Lasix Inj) 20 mg BID@09,18 IV PUSH 05/29/17 13:30 05/29/17 17:54 Magnesium Sulfate/ Dextrose 100 ml @ 100 mls/hr Q1H IV 05/30/17 10:00 05/30/17 11:59 UNV (K-Lyte Cl Eff) 25 meq ONCE ONCE PO 05/30/17 10:00 05/30/17 10:01 UNV A/P Problem List: (1) Syncope ICD Code: R55 - Syncope and collapse (2) Hypoglycemia ICD Code: E16.2 - Hypoglycemia, unspecified (3) DM type 2, uncontrolled, with neuropathy ICD Code: E11.40 - Type 2 diabetes mellitus with diabetic neuropathy, unspecified; E11.65 - Type 2 diabetes mellitus with hyperglycemia Status: Acute (4) Anemia ICD Code: D64.9 - Anemia, unspecified Status: Chronic (5) Shortness of breath ICD Code: R06.02 - Shortness of breath (6) CHF (congestive heart failure) ICD Code: I50.9 - Heart failure, unspecified (7) Diarrhea ICD Code: R19.7 - Diarrhea, unspecified Assessment and Plan Mr. Wilder is a pleasant 82 y/o male with a history of CAD s/p CABG x 6, and Type 2 DM who presented to the ED on 05/28/17 following syncopal episodes x 2 at home. His blood glucose was 31. He recently was told to increase his home Lantus and he went from 30 to 35 to 40 units over the past month. He also has had diarrhea and nausea along with increased sleepiness causing meals to get missed. He believes his recent course of Levaquin was to blame for that. Syncope most likely secondary to hypoglycemia due to increase in Lantus and diminished oral intake with recent Levaquin for right toe infection - resume Lantus at 10 units BID and monitor. - monitor blood glucose q4h - Hypoglycemia protocol - continuous cardiac telemetry to monitor for arrhythmia - follow orthostatic blood pressure. Improved. Type 2 Diabetes Mellitus A1c 5.4%. - Accu-Cheks q4h with low-dose NovoLog sliding scale coverage - Hypoglycemia protocol - Monitor trends and blood glucose readings and adjust treatments as indicated - Levemir 10 units BID. Shortness of breath/ CHF CXR demonstrates mild positive fluid balance; trace right pleural effusion with minimal right basilar atelectasis; probably very subtle left pleural effusion. BNP elevated. Echo with reduced EF of 35-40%. - Lasix 20 mg IV BID. - outpt cardiology follow-up. Anemia Stable. B12 borderline low. Iron studies noted. - resume home iron (patient stopped it recently and then resumed recently) - recheck CBC in a.m. - check Hemoccult. - B12 IM x 1. Diarrhea and nausea S/t Levaquin. - d/c Levaquin DVT prophylaxis - continue home Xarelto Discharge Planning Await further diuresis. Anticipate 1-2 days Wero Scott DO May 30, 2017 10:25
[2017-05-30] MEDS: TOLTERODINE TARTRATE 2 MG CAP LA PO SCH (10:26)
[2017-05-30] MEDS: FAMOTIDINE 20 MG TAB PO SCH (10:26)
[2017-05-30] MEDS: RIVAROXABAN 20 MG TAB PO SCH (10:26)
[2017-05-30] MEDS: MULTIVITAMIN TAB PO SCH (10:26)
[2017-05-30] MEDS: RANOLAZINE 500 MG EXTENDED RELEASE TAB PO SCH ×2 (10:27→21:37)
[2017-05-30] MEDS: DOCUSATE SODIUM 50 MG/SENNA 8.6 MG TAB PO SCH ×2 (10:27→21:37)
[2017-05-30] MEDS: INSULIN DETEMIR 100 UNITS/ML VIAL SQ SCH ×2 (10:27→21:38)
[2017-05-30] MEDS: LOSARTAN 25 MG TAB PO SCH (10:31)
[2017-05-30] MEDS: SODIUM CHLORIDE 0.9% FLUSH 10 ML FLUSH IV FLUSH SCH ×2 (10:31→21:39)
[2017-05-30] MEDS: ASPIRIN EC 81 MG TABEC PO SCH (10:31)
[2017-05-30] MEDS ORDERED: CYANOCOBALAMIN 1000 MCG/ML VIAL IM ONE (11:00)
[2017-05-30] MEDS ORDERED: POTASSIUM CHLORIDE 25 MEQ EFFERVESCENT TAB PO ONE (11:00)
[2017-05-30] MEDS: MAGNESIUM SULFATE 1 GM PREMIX 100 ML IV SCH ×2 (12:01→13:01)
[2017-05-30] MEDS: ATORVASTATIN 40 MG TAB PO SCH (21:40)
[2017-05-31] VITALS (7 sets, daily range): BP systolic 111–115; BP diastolic 58–66; PULSE 68–71; RESP 16–20; TEMP 97.9–98.5; O2SAT 95–96
[2017-05-31] MEDS: ISOSORBIDE MONONITRATE 60 MG TAB PO SCH (06:36)
[2017-05-31 07:08] LABS: HEMATOCRIT 23.9 % (39.0-51.0); MEAN CELL VOLUME 87.1 FL (80.0-100.0); MEAN CORPUSCULAR HEMOGLOBIN 28.2 PG (27.0-34.0); MEAN CORPUSCULAR HGB CONC 32.4 % (32.0-36.0); PLATELET COUNT 130 TH/MM3 (150-450); RED BLOOD COUNT 2.74 MIL/MM3 (4.50-5.90); RED CELL DISTRIBUTION WIDTH 19.8 % (11.6-17.2); REVIEW FLAG FINAL; WHITE BLOOD COUNT 4.9 TH/MM3 (4.0-11.0)
[2017-05-31 07:15] LABS: MAGNESIUM 1.7 MG/DL (1.5-2.5); POTASSIUM 3.8 MEQ/L (3.5-5.1)
[2017-05-31] MEDS: METOPROLOL SUCCINATE 50 MG EXTENDED RELEASE TAB PO SCH (09:08)
[2017-05-31] MEDS: LOSARTAN 25 MG TAB PO SCH (09:08)
[2017-05-31] MEDS: FUROSEMIDE 20 MG/2 ML VIAL IV PUSH SCH (09:09)
[2017-05-31] MEDS: FERROUS SULFATE 325 MG (65 MG ELEMENTAL IRON) TAB PO SCH (09:09)
[2017-05-31] MEDS: DOCUSATE SODIUM 50 MG/SENNA 8.6 MG TAB PO SCH (09:09)
[2017-05-31] MEDS: RANOLAZINE 500 MG EXTENDED RELEASE TAB PO SCH (09:10)
[2017-05-31] MEDS: RIVAROXABAN 20 MG TAB PO SCH (09:11)
[2017-05-31] MEDS: MULTIVITAMIN TAB PO SCH (09:11)
[2017-05-31] MEDS: FAMOTIDINE 20 MG TAB PO SCH (09:11)
[2017-05-31] MEDS: ASPIRIN EC 81 MG TABEC PO SCH (09:11)
[2017-05-31] MEDS: SODIUM CHLORIDE 0.9% FLUSH 10 ML FLUSH IV FLUSH SCH (09:11)
[2017-05-31] MEDS: TOLTERODINE TARTRATE 2 MG CAP LA PO SCH (09:11)
[2017-05-31] MEDS: ASCORBIC ACID 500 MG TAB PO SCH (09:11)
[2017-05-31] MEDS: INSULIN ASPART SUPPLEMENTAL SCALE SQ SCH ×2 (09:12→12:34)
[2017-05-31] MEDS: INSULIN DETEMIR 100 UNITS/ML VIAL SQ SCH (09:12)
[2017-05-31 14:03] LABS: HEMATOCRIT 25.6 % (39.0-51.0); MEAN CELL VOLUME 86.6 FL (80.0-100.0); MEAN CORPUSCULAR HEMOGLOBIN 27.6 PG (27.0-34.0); MEAN CORPUSCULAR HGB CONC 31.8 % (32.0-36.0); PLATELET COUNT 145 TH/MM3 (150-450); RED BLOOD COUNT 2.95 MIL/MM3 (4.50-5.90); RED CELL DISTRIBUTION WIDTH 19.7 % (11.6-17.2); REVIEW FLAG FINAL; WHITE BLOOD COUNT 4.6 TH/MM3 (4.0-11.0)
[2017-05-31] MEDS ORDERED: FURO20TA PO (14:36)
[2017-05-31] MEDS ORDERED: POTA-163 PO (14:36)
[2017-05-31] MEDS ORDERED: LANTUS2P SQ (14:38)
--- NOTE | 2017-05-31 14:43 | HHI.DCPOC ---
Discharge Care Plan Diagnosis: (1) DM type 2, uncontrolled, with neuropathy (2) CHF (congestive heart failure) (3) Anemia (4) Shortness of breath (5) Hypoglycemia Goals to Promote Your Health * To prevent worsening of your condition and complications * To maintain your health at the optimal level Directions to Meet Your Goals Take your medications as prescribed Follow your dietary instruction Follow activity as directed Keep your appointments as scheduled Take your immunizations and boosters as scheduled If your symptoms worsen call your PCP, if no PCP go to Urgent Care Center or Emergency Room Smoking is Dangerous to Your Health. Avoid second hand smoke Call the 24-hour hour crisis hotline for domestic abuse at Wero Scott DO May 31, 2017 14:43
--- NOTE | 2017-05-31 14:51 | HHI.DS ---
Discharge Summary Admission Date May 28, 2017 at 17:44 Discharge Date: May 31, 2017 Admitting Diagnosis anemia, hypoglycemia, near syncope (1) Syncope ICD Code: R55 - Syncope and collapse (2) Hypoglycemia ICD Code: E16.2 - Hypoglycemia, unspecified Diagnosis: Principal (3) DM type 2, uncontrolled, with neuropathy ICD Code: E11.40 - Type 2 diabetes mellitus with diabetic neuropathy, unspecified; E11.65 - Type 2 diabetes mellitus with hyperglycemia Diagnosis: Principal Status: Acute (4) Anemia ICD Code: D64.9 - Anemia, unspecified Diagnosis: Principal Status: Chronic (5) Shortness of breath ICD Code: R06.02 - Shortness of breath Diagnosis: Principal (6) CHF (congestive heart failure) ICD Code: I50.9 - Heart failure, unspecified Diagnosis: Principal (7) Diarrhea ICD Code: R19.7 - Diarrhea, unspecified Procedures None Brief History - From Admission Written by Luh Cool, acting as scribe for Dr. Armendariz on 05/28/17 at 21:08. The patient is seen in the CDU and reports: Yesterday, he got up to answer the phone and passed out. He reports some blurry vision prior to episode. The patient states that this morning he had gotten up and eaten, fell down and checked his blood glucose and it was in the 30's. He hit his chest on a chair. Hurt the left side of his chest which impacted on the chair. Blood glucose 108, 79, 82 over the past week in the morning. Denies any fever, cough, pain with urination, burning with urination, or vomiting. He has been on antibiotic Levaquin for a foot infection and he reports that it caused some diarrhea. He felt fatigued and slept a lot also. Also with nausea. He reports that he's missed a couple of meals as a result of fatigue and increased time spent sleeping. Diarrhea occurs 4 - 5 times per day, black colored - takes iron pills. Takes 40 units of Lantus about a month ago - it was 30 units about a month ago, then 35 - change was made because HgA1C was getting higher He reports shortness of breath occurring for over a year Dr. Jamison has seen him for this. He had a "COPD" check and it was "normal" SOB occurs with exertion. Does not take oxygen at home. CABG 06 Stress test negative over the summer last cardiac cath two years ago CBC/BMP: 05/31/17 1346 05/31/17 0604 Significant Findings Laboratory Tests Test 05/29/17 05:16 05/30/17 04:42 05/31/17 06:04 05/31/17 13:46 Red Blood Count 2.97 MIL/MM3 (4.50-5.90) 3.04 MIL/MM3 (4.50-5.90) 2.74 MIL/MM3 (4.50-5.90) 2.95 MIL/MM3 (4.50-5.90) Hemoglobin 8.2 GM/DL (13.0-17.0) 8.4 GM/DL (13.0-17.0) 7.7 GM/DL (13.0-17.0) 8.1 GM/DL (13.0-17.0) Hematocrit 26.1 % (39.0-51.0) 26.3 % (39.0-51.0) 23.9 % (39.0-51.0) 25.6 % (39.0-51.0) Mean Corpuscular Hemoglobin Concent 31.3 % (32.0-36.0) 31.8 % (32.0-36.0) 31.8 % (32.0-36.0) Red Cell Distribution Width 19.8 % (11.6-17.2) 20.0 % (11.6-17.2) 19.8 % (11.6-17.2) 19.7 % (11.6-17.2) Platelet Count 132 TH/MM3 (150-450) 148 TH/MM3 (150-450) 130 TH/MM3 (150-450) 145 TH/MM3 (150-450) Neutrophils (%) (Auto) 81.2 % (16.0-70.0) Lymphocytes # (Auto) 0.8 TH/MM3 (1.0-4.8) Blood Urea Nitrogen 23 MG/DL (7-18) 24 MG/DL (7-18) 22 MG/DL (7-18) Random Glucose 213 MG/DL (74-106) 136 MG/DL (74-106) 153 MG/DL (74-106) Total Protein 5.9 GM/DL (6.4-8.2) Albumin 3.0 GM/DL (3.4-5.0) Aspartate Amino Transf (AST/SGOT) 10 U/L (15-37) Chloride Level 109 MEQ/L (98-107) Estimat Glomerular Filtration Rate 67 ML/MIN (>89) 69 ML/MIN (>89) 78 ML/MIN (>89) Iron Level 20 MCG/DL (65-175) Percent Iron Saturation 6.7 % (20-50) B-Type Natriuretic Peptide 1629 PG/ML (0-100) Folate GREATER THAN 20.0 NG/ML Magnesium Level 1.4 MG/DL (1.5-2.5) Imaging Last Impressions Head CT 05/28/17 1403 Signed Impressions: Service Date/Time: Sunday, May 28, 2017 15:35 - CONCLUSION: 1. Generalized atrophy. 2. No evidence of acute infarct, hemorrhage, mass or edema. Manuel Smith MD Chest X-Ray 05/28/17 1403 Signed Impressions: Service Date/Time: Sunday, May 28, 2017 14:43 - CONCLUSION: 1. Cardiomegaly with trace positive fluid balance. 2. Trace right pleural effusion with minimal right basilar associated atelectasis. 3. Probable very subtle left pleural effusion. Boyd Houston MD PE at Discharge GENERAL: This is an elderly male patient, in no apparent distress. SKIN: No rashes. Cool and dry. Right 5th digit with eschar lesion, appx dime sized. HEAD: Atraumatic. Normocephalic. EYES: No scleral icterus. No injection or drainage. ENT: Nose without bleeding, purulent drainage. NECK: Trachea midline. No JVD. CARDIOVASCULAR: Regular rate and rhythm with systolic murmur appreciated. RESPIRATORY: Clear to auscultation bilaterally. GASTROINTESTINAL: Abdomen soft, non-tender, nondistended. No guarding. MUSCULOSKELETAL: Extremities without clubbing, cyanosis. Right foot with all toes amputated. TR LE edema. NEUROLOGICAL: Awake and alert. Cognitively sharp. Motor and sensory grossly within normal limits. Normal speech. PSYCH: Mood and affect appropriate. Pt update on day of discharge The patient was feeling well. He said he was ambulating better and not as short of breath. He said that he still has some swelling in his lower extremities. His family was at the bedside and their questions were answered. Discussed with nursing. Hospital Course Syncope/ Hypoglycemia The pt presented to the ED on 05/28/17 following syncopal episodes x 2 at home. His blood glucose was 31. He recently was told to increase his home Lantus and he went from 30 to 35 to 40 units over the past month. He also has had diarrhea and nausea along with increased sleepiness causing meals to get missed. He believes his recent course of Levaquin was to blame for that. We resumed Lantus at 10 units BID. We monitored his blood glucose q4h. He was placed on continuous cardiac telemetry and we monitored his orthostatics. He worked with physical therapy. He will follow up with his PCP. Type 2 Diabetes Mellitus A1c 5.4%. He was hypoglycemic as above. He was placed on Accu-Cheks q4h with low -dose NovoLog sliding scale coverage. He will be discharged on Lantus 20 units HS. He will follow up with his PCP. He will monitor his glucose readings at home. Shortness of breath/ CHF CXR demonstrates mild positive fluid balance; trace right pleural effusion with minimal right basilar atelectasis; probably very subtle left pleural effusion. BNP elevated. Echo with reduced EF of 35-40%. He was placed on Lasix 20 mg IV BID. He will continue Lasix 20 mg PO BID upon discharge along with KCl supplementation. He will follow up with cardiology as an outpt. Anemia B12 borderline low. S/p B12 injection x 1. Iron studies were performed. He was resumed on his home iron supplement. He will need to follow up with his PCP. He will have a repeat CBC in 2-3 days. He will continue anticoagulation at this time. Pt Condition on Discharge: Stable Discharge Disposition: Discharge Home Discharge Time: > 30 minutes Discharge Instructions DIET: Follow Instructions for: Diabetic Diet Activities you can perform: Weight Bearing as Nikole Follow up Referrals: Cardiology - 1 Week Gastroenterology - 1 Week PCP Follow-up - 1 Week Podiatry - 3-5 Days New Orders: BASIC METABOLIC PROF - 2-3 Days CBC NO DIFF - 2-3 Days New Medications: Furosemide (Furosemide) 20 Mg Tab 20 MG PO BID for Heart failure, #60 TAB 0 Refills Insulin Glargine Inj (Lantus Inj) 1,000 Unit/10 Ml Vial 20 UNITS SQ HS for Blood Sugar Management for 30 Days, VIAL 0 Refills Potassium Chloride ER (Potassium Chloride ER) 20 Meq Tab 20 MEQ PO BID for Electrolyte Replacement, #60 TAB 0 Refills Continued Medications: Ascorbic Acid (Vitamin C) 250 Mg Chew 500 MG CHEW DAILY for Nutritional Supplement, #30 TAB [address] (Aspirin 81) 81 Mg Tabdr 81 MG PO DAILY, TAB 0 Refills Atorvastatin (Atorvastatin) 40 Mg Tab 40 MG PO HS for Cholesterol Management, #30 TAB 0 Refills Ferrous Sulfate (Iron) Unknown Strength Tab 1 TAB PO DAILY for Nutritional Supplement Insulin Aspart Inj (Novolog Inj) 1,000 Unit/10 Ml Vial 0 SQ TIDAC for Blood Sugar Management, #10 ML 0 Refills Sliding Scale as directed. Isosorbide Mononitrate ER (Isosorbide Mononitrate ER) 120 Mg Emeka 120 MG PO DAILY for Prevent Chest Pain, #30 TAB 0 Refills Losartan (Losartan) 25 Mg Tab 25 MG PO DAILY for Blood Pressure Management, #30 TAB 0 Refills Metformin (Metformin) 1,000 Mg Tab 1000 MG PO BIDPC for Blood Sugar Management, #60 TAB 0 Refills Metoprolol Succinate ER 24 HR (Metoprolol Succinate ER 24 HR) 200 Mg Tab 200 MG PO DAILY, #30 TAB 0 Refills Multiple Vitamin (Multi Vitamin Daily) 1 Tab Tab 1 TAB PO DAILY Ranitidine (Ranitidine) 150 Mg Tab 150 MG PO DAILY for Heartburn Management, #30 TAB 0 Refills Ranolazine ER 12 HR (Ranexa ER 12 HR) 1,000 Mg Tab 1000 MG PO BID for Chest Pain, #60 TAB 0 Refills Rivaroxaban (Xarelto) 20 Mg Tab 25 MG PO DAILY for Blood Clot Prevention, TAB 0 Refills Solifenacin (Vesicare) 5 Mg Tab 5 MG PO DAILY for Urinary Symptom Managemen, #30 TAB 0 Refills Discontinued Medications: Insulin Glargine Inj (Lantus Inj) 1,000 Unit/10 Ml Vial 40 UNITS SQ HS for Blood Sugar Management, VIAL 0 Refills Wero Scott DO May 31, 2017 14:51
[2017-05-31] MEDS ORDERED: POLYETHYLENE GLYCOL 17 GM PKG PO SCH (15:00)
[2017-05-31] MEDS ORDERED: INSULIN DETEMIR 100 UNITS/ML VIAL SQ SCH (21:00)
[2017-06-01] MEDS ORDERED: INSULIN DETEMIR 100 UNITS/ML VIAL SQ SCH (09:00)
== END 2017-05-31 15:56 | disposition home or self-care (01) ==
LOC: NEPE 13:58 → NEDA 17:44 → NEPGCP 18:42
PROVIDERS: ADMIT Hospitalist; ATTEND Hospitalist
DX: R55 Syncope and collapse (principal); E11.40 Type 2 diabetes mellitus with diabetic neuropathy, unspecified; E11.649 Type 2 diabetes mellitus with hypoglycemia without coma; D64.9 Anemia, unspecified; R07.89 Other chest pain; R06.02 Shortness of breath; R51 Headache; R19.7 Diarrhea, unspecified; H53.8 Other visual disturbances; M79.1 Myalgia; I25.10 Atherosclerotic heart disease of native coronary artery without angina pectoris; I11.0 Hypertensive heart disease with heart failure; I50.9 Heart failure, unspecified; I25.2 Old myocardial infarction; R94.31 Abnormal electrocardiogram [ECG] [EKG]; I48.92 Unspecified atrial flutter; I48.91 Unspecified atrial fibrillation; J44.9 Chronic obstructive pulmonary disease, unspecified; E78.00 Pure hypercholesterolemia, unspecified; K21.9 Gastro-esophageal reflux disease without esophagitis; M19.90 Unspecified osteoarthritis, unspecified site; Z85.828 Personal history of other malignant neoplasm of skin; Z85.6 Personal history of leukemia; Z79.899 Other long term (current) drug therapy; Z79.82 Long term (current) use of aspirin; Z79.84 Long term (current) use of oral hypoglycemic drugs; Z95.5 Presence of coronary angioplasty implant and graft; Z95.1 Presence of aortocoronary bypass graft; W19.XXXA Unspecified fall, initial encounter
CPT/HCPCS: 70450; 71020; 80048; 80053; 81001; 82550; 82607; 82728; 82746; 82948; 83036; 83540; 83550; 83735; 83880; 84484; 85025; 85027; 85610; 85730; 93005; 93306; 96361; 96365; 96366; 96372; 96375; 96376; 97116; 97162; 99285; G0378; G8987; G8988; J1815; J1940; J3420; J3475; J7030

== ENCOUNTER → 2017-06-03 | Outpatient (CLI) | payer MEDICARE, BC ==
[~2017-06-03] MED LIST changes: +FURO20TA PO; +IRON18TA PO; -LEVA500T33 PO; +METO-393 PO; -METO100T PO; +NOVOLOGP2 SQ; +POTA-163 PO; +SPIR25TA PO; +[UNRECOGNIZED DRUG - CODE] PO
[2017-06-03 13:08] LABS: HEMATOCRIT 27.2 % (39.0-51.0); MEAN CELL VOLUME 87.2 FL (80.0-100.0); MEAN CORPUSCULAR HEMOGLOBIN 27.7 PG (27.0-34.0); MEAN CORPUSCULAR HGB CONC 31.8 % (32.0-36.0); PLATELET COUNT 170 TH/MM3 (150-450); RED BLOOD COUNT 3.12 MIL/MM3 (4.50-5.90); RED CELL DISTRIBUTION WIDTH 20.5 % (11.6-17.2); REVIEW FLAG FINAL
[2017-06-03 13:50] LABS: ALKALINE PHOSPHATASE 94 U/L (45-117); ALT (GPT) 18 U/L (12-78); ANION GAP 10 MEQ/L (5-15); AST (GOT) 13 U/L (15-37); BICARBONATE 23.9 MEQ/L (21.0-32.0); BLOOD UREA NITROGEN 27 MG/DL (7-18); CHLORIDE 106 MEQ/L (98-107); GLOMERULAR FILTRATION RATE 65 ML/MIN (>89); GLUCOSE,FASTING 307 MG/DL (74-99); HDL CHOLESTEROL 38.2 MG/DL (40.0-60.0); LDL CHOLESTEROL 25 MG/DL (0-99); LDL CHOLESTEROL DIRECT 39 MG/DL (0-99); POTASSIUM 5.1 MEQ/L (3.5-5.1); SODIUM (NA) 140 MEQ/L (136-145); TOTAL BILIRUBIN ADULT 0.8 MG/DL (0.2-1.0)
[2017-06-03 16:52] LABS: HEMOGLOBIN A1a 1.6 %; HEMOGLOBIN A1b 1.1 %; HEMOGLOBIN Ao 80.2 %; HEMOGLOBIN F 1.9 %; HEMOGLOBIN LA1C 3.9 %; HEMOGLOBIN P3 6.5 %
== END ==
LOC: PLAB 08:35
PROVIDERS: ATTEND Family Medicine
DX: I25.10 Atherosclerotic heart disease of native coronary artery without angina pectoris (principal); E11.9 Type 2 diabetes mellitus without complications; E78.4 Other hyperlipidemia; I10 Essential (primary) hypertension
CPT/HCPCS: 36415; 80053; 80061; 83036; 83721; 84443; 85027

== ENCOUNTER → 2017-06-11 | Outpatient (CLI) | payer MEDICARE, BC ==
[2017-06-11 16:27] LABS: HEMATOCRIT 27.1 % (39.0-51.0); REVIEW FLAG FINAL
== END ==
LOC: PLAB 11:38
PROVIDERS: ATTEND Internal Medicine Cardiovascular Disease
DX: I48.92 Unspecified atrial flutter (principal); D64.9 Anemia, unspecified; I25.10 Atherosclerotic heart disease of native coronary artery without angina pectoris; I34.0 Nonrheumatic mitral (valve) insufficiency
CPT/HCPCS: 36415; 85014; 85018

== ENCOUNTER → 2017-07-01 | Day surgery (SDC) | payer BC, MEDICARE ==
[~2017-07-01] VITALS: Ht 170.2 cm; Wt 70.3 kg
[~2017-07-01] MED LIST changes: +BUPIVACAINE HCL PF 0.5% 30 ML VIAL ONE; +CHLORHEXIDINE GLUCONATE 2 % 1 PACK (2 CLOTHS) TOPICAL PRN; +COLA100C5 PO; +DO NOT ADM ANY ANTICOAGULANT DRUGS PRN; +HEPARIN SODIUM - IV 10,000 UNITS/10 ML VIAL ONE; +HEPARIN-NS/PF INJ 500 ML ONE; +INSULIN HUMAN REGULAR 1,000 UNITS/10 ML VIAL SQ ONE; +INSULIN HUMAN REGULAR 1,000 UNITS/10 ML VIAL SQ PRN; +INSULIN NovoLIN REGULAR SUPPLEMENTAL SCALE ONE; +IOHEXOL 300 MG/ML 100 ML BTL (for Rad CT) OTHER ONE; -IRON18TA PO; +LACTATED RINGER'S 1000 ML IV PRN; +LIDOCAINE HCL 1% PF 5 ML SYRINGE OTHER ONE; +METOPROLOL SUCCINATE 50 MG EXTENDED RELEASE TAB PO ONE; +METOPROLOL TARTRATE 100 MG TAB PO ONE; +METOPROLOL TARTRATE 25 MG TAB PO PRN; +MIDAZOLAM HCL 2 MG/2 ML VIAL ONE; +POVIDONE IODINE 5% (ANTISEPSIS KIT) 4 APPLICATIONS EACH NARE PRN; +PROPOFOL 200 MG/20 ML AMP IV ONE; +PROTAMINE SULFATE 50 MG/5 ML VIAL ONE; +SODIUM CHLORID 0.9% 500 ML IV PRN; +TRAM-462 PO; +ZOFR4TAB3 SL
[2017-07-01 10:23] LABS: AUTOMATED NEUTROPHIL # 5.4 TH/MM3 (1.8-7.7); BASOPHIL % 0.6 % (0.0-2.0); EOSINOPHIL # 0.1 TH/MM3 (0-0.4); EOSINOPHIL % 1.5 % (0.0-4.0); HEMATOCRIT 35.4 % (39.0-51.0); HEMOGLOBIN 10.9 GM/DL (13.0-17.0); LYMPH % 19.8 % (9.0-44.0); LYMPHOCYTE # 1.5 TH/MM3 (1.0-4.8); MEAN CELL VOLUME 88.4 FL (80.0-100.0); MEAN CORPUSCULAR HEMOGLOBIN 27.4 PG (27.0-34.0); MEAN CORPUSCULAR HGB CONC 30.9 % (32.0-36.0); MEAN PLATELET VOLUME 8.4 FL (7.0-11.0); MONO % 6.4 % (0.0-8.0); MONOCYTE # 0.5 TH/MM3 (0-0.9); NEUT % 71.7 % (16.0-70.0); PLATELET COUNT 201 TH/MM3 (150-450); RED CELL DISTRIBUTION WIDTH 21.9 % (11.6-17.2); WHITE BLOOD COUNT 7.5 TH/MM3 (4.0-11.0)
[2017-07-01 10:45] LABS: BICARBONATE 29.6 MEQ/L (21.0-32.0); CALCIUM 9.6 MG/DL (8.5-10.1); CREATININE 1.04 MG/DL (0.60-1.30)
--- NOTE | 2017-07-01 11:29 | PD.VS.PN ---
Pre-operative Note Pre-operative diagnosis: R LE PAD, tissue loss Planned procedure: R LE angiogram Interval History: Pt has had toe pain but no other changes in medical history that would preclude OR. Labs: Laboratory Results Test 07/01/17 09:55 Anion Gap 6 MEQ/L (5-15) Blood Urea Nitrogen 19 MG/DL (7-18) Creatinine 1.04 MG/DL (0.60-1.30) Random Glucose 365 MG/DL (74-106) Calcium Level 9.6 MG/DL (8.5-10.1) Sodium Level 137 MEQ/L (136-145) Potassium Level 4.8 MEQ/L (3.5-5.1) Chloride Level 101 MEQ/L (98-107) Carbon Dioxide Level 29.6 MEQ/L (21.0-32.0) Hematocrit 35.4 % (39.0-51.0) Hemoglobin 10.9 GM/DL (13.0-17.0) Mean Corpuscular Hemoglobin 27.4 PG (27.0-34.0) Mean Corpuscular Hemoglobin Concent 30.9 % (32.0-36.0) Mean Corpuscular Volume 88.4 FL (80.0-100.0) Mean Platelet Volume 8.4 FL (7.0-11.0) Platelet Count 201 TH/MM3 (150-450) Red Blood Count 4.00 MIL/MM3 (4.50-5.90) Red Cell Distribution Width 21.9 % (11.6-17.2) White Blood Count 7.5 TH/MM3 (4.0-11.0) Blood: none Imaging: will make in OR Orders: NPO Post-operative destination: PACU Operative site marked: Yes Consent: Informed consent has been obtained from Octavio Wilder. I have explained the procedure in detail and discussed the risks, benefits, and potential complications. All questions have been answered. Patient contact information: Daughter [phone] Laureano Swift MD Jul 01, 2017 11:29
--- NOTE | 2017-07-01 13:31 | HHI.PR ---
cc: Laureano Swift MD; Ayaan Carrillo DPM Immediate Post Op Note Procedure Date: Jul 01, 2017 Pre Op Diagnosis: PAD, R LE tissue loss Post Op Diagnosis: PAD, R LE tissue loss Surgeon: Laureano Swift Manufacturing Process Technician(s): none Procedure: 1. R LE angiogram 2. R AT COLORS CUSTODIAN (2-2.5 tapered balloon) 3. R PT COLORS CUSTODIAN (2-2.5 tapered balloon) 4. L DIRECTOR OF CARDIOLOGY Angioseal Findings: significant tandem AT/PT lesions, all successfully COLORS CUSTODIAN good pedal runoff after intervention without embolic complications Complications: none Specimen(s) removed: none Estimated blood loss: 10mL Anesthesia: MAC Drains: None Fluids: 400mL IVF Patient to: PACU Patient Condition: Good Date/Time of Procedure: SEE SURGICAL CARE RECORD Laureano Swift MD Jul 01, 2017 13:31
--- NOTE | 2017-07-01 15:08 | MP ---
cc: LAUREANO SWIFT MD DATE OF SURGERY 07/01/2017 PREOPERATIVE DIAGNOSIS 1. Right lower extremity tissue loss. 2. Peripheral vascular disease. POSTOPERATIVE DIAGNOSIS 1. Right lower extremity tissue loss. 2. Peripheral vascular disease. PROCEDURE 1. Right lower extremity angiograms. 2. Right anterior tibial artery angioplasty with a tapered 2 to 2.5 mm balloon. 3. Right posterior tibial artery angioplasty with a tapered 2 to 2.5 mm balloon. ATTENDING SURGEON Laureano Swift. ANESTHESIA Local with sedation. INDICATION Mr. Wilder is an 82-year-old gentleman with peripheral arterial occlusive disease and a nonhealing right fifth toe wound. He has palpable popliteal pulse but no palpable pedal pulse. He is taken to the operating room for angiographic evaluation and potential treatment. There is no prior catheter-based imaging available for my review. DESCRIPTION OF PROCEDURE Informed consent was obtained from the patient. He was taken to the operating room and placed supine on the operating table. An appropriate timeout was taken to ensure the patient's identity, operative site and planned procedure. The administration of antibiotics was not necessary as this a clean procedure without planned implantation of any foreign object. Everyone in the room agreed with the timeout and we proceeded. His bilateral groins were prepped and draped and the left groin was anesthetized with 1% lidocaine. A 21-gauge micropuncture needle was used to access the left common femoral artery. This was exchanged using the Seldinger technique for a micropuncture sheath through which a 0.035 Glidewire was introduced and the micropuncture sheath was exchanged for a 5 Emir[place] sheath. A VCF catheter was placed over the wire and through the sheath and the Glidewire and VCF catheter were navigated down to the right common femoral artery and angiograms were obtained through VCF catheter. The patient was systemically heparinized with 8000 units of IV heparin. A 0.035 Strauss wire was advanced and passed down to the popliteal artery. The VCF catheter and 5 Emirati sheath were removed and a 6 Emirati, 90 cm sheath was advanced down to the right popliteal artery. A CXI catheter was then advanced over the wire and through the sheath and the wire was exchanged for a Glidewire which was used to navigate it into the anterior tibial artery. Once we were past the genu of the anterior tibial artery the Glidewire was exchanged for a WARRANTY ADMINISTRATOR wire and the WARRANTY ADMINISTRATOR and a Choice PT wire were used to navigate down to the dorsalis pedis. With the tip of the wire in the dorsalis pedis the distal aspect of the anterior tibial artery was angioplastied with a 1.5 mm balloon and the proximal aspect was angioplastied with a tapered 2 to 2.5 mm balloon. The completion angiogram showed excellent result without any recoil extravasation. The catheter was removed and the wire was pulled back to the popliteal artery. Then using a glide and CXI we navigated down to the posterior tibial artery and the glide was exchanged for a WARRANTY ADMINISTRATOR wire which was passed down to the perimalleolar posterior tibial artery. The entire posterior tibial artery was angioplastied with a 2 to 2.5 mm tapered balloon. A completion angiogram showed excellent result without any recoil extravasation. The wire, catheter and sheath were removed and the groin was closed with an Angio-Seal. There were no complications. I was present and scrubbed for the entire procedure. INTERPRETATION OF IMAGES The patient has a patent right common femoral artery, profunda and SFA. There is no hemodynamically significant stenoses in any of these. The patient's popliteal artery is patent. The below-knee popliteal artery is patent. There is three-vessel takeoff but the peroneal artery stops in the mid calf. The anterior tibial artery has several near occlusive lesions down to the dorsalis pedis. The posterior tibial artery has several near occlusive lesions down to the ankle. Both the anterior tibial and posterior tibial were successfully angioplastied without any recoil extravasation or flow-limiting dissections. MD BHARATHI Graff/CARLOS /1:21 PM /2:36 PM
[2017-07-01 16:00] VITALS: BP 143/73; PULSE 78; RESP 18; TEMP 97.2; O2SAT 95
== END | disposition home or self-care (01) ==
LOC: HCVO 09:16
PROVIDERS: ATTEND Surgery
DX: I70.235 Atherosclerosis of native arteries of right leg with ulceration of other part of foot (principal); L97.512 Non-pressure chronic ulcer of other part of right foot with fat layer exposed; I10 Essential (primary) hypertension; E78.5 Hyperlipidemia, unspecified; E11.51 Type 2 diabetes mellitus with diabetic peripheral angiopathy without gangrene; Z79.4 Long term (current) use of insulin
CPT/HCPCS: 01500; 37228; 37232; 80048; 82948; 85025; J1644; J1815; J2250; J2720; J3010; J7120; Q9967; C1725; C1769

== ENCOUNTER 2017-07-08 14:01 | Emergency (ER) | payer MEDICARE ==
[~2017-07-08] VITALS: Ht 170.2 cm; Wt 69.1 kg
[~2017-07-08 14:01] MED LIST changes: -BUPIVACAINE HCL PF 0.5% 30 ML VIAL ONE; -CHLORHEXIDINE GLUCONATE 2 % 1 PACK (2 CLOTHS) TOPICAL PRN; -COLA100C5 PO; -DO NOT ADM ANY ANTICOAGULANT DRUGS PRN; -HEPARIN SODIUM - IV 10,000 UNITS/10 ML VIAL ONE; -HEPARIN-NS/PF INJ 500 ML ONE; -INSULIN HUMAN REGULAR 1,000 UNITS/10 ML VIAL SQ ONE; -INSULIN HUMAN REGULAR 1,000 UNITS/10 ML VIAL SQ PRN; -INSULIN NovoLIN REGULAR SUPPLEMENTAL SCALE ONE; -IOHEXOL 300 MG/ML 100 ML BTL (for Rad CT) OTHER ONE; -LACTATED RINGER'S 1000 ML IV PRN; -LIDOCAINE HCL 1% PF 5 ML SYRINGE OTHER ONE; -METOPROLOL SUCCINATE 50 MG EXTENDED RELEASE TAB PO ONE; -METOPROLOL TARTRATE 100 MG TAB PO ONE; -METOPROLOL TARTRATE 25 MG TAB PO PRN; -MIDAZOLAM HCL 2 MG/2 ML VIAL ONE; -NOVOLOGP2 SQ; -POVIDONE IODINE 5% (ANTISEPSIS KIT) 4 APPLICATIONS EACH NARE PRN; -PROPOFOL 200 MG/20 ML AMP IV ONE; -PROTAMINE SULFATE 50 MG/5 ML VIAL ONE; -SODIUM CHLORID 0.9% 500 ML IV PRN; -VESI5TAB2 PO; -ZOFR4TAB3 SL
[2017-07-08 14:07] VITALS: BP 109/54; PULSE 66; RESP 18; O2SAT 99
[2017-07-08 14:41] LABS: AUTOMATED NEUTROPHIL # 5.1 TH/MM3 (1.8-7.7); BASOPHIL % 0.2 % (0.0-2.0); EOSINOPHIL # 0.1 TH/MM3 (0-0.4); HEMATOCRIT 31.7 % (39.0-51.0); HEMOGLOBIN 10.3 GM/DL (13.0-17.0); LYMPH % 16.9 % (9.0-44.0); LYMPHOCYTE # 1.1 TH/MM3 (1.0-4.8); MEAN CELL VOLUME 89.3 FL (80.0-100.0); MEAN CORPUSCULAR HEMOGLOBIN 28.8 PG (27.0-34.0); MEAN CORPUSCULAR HGB CONC 32.3 % (32.0-36.0); MEAN PLATELET VOLUME 8.4 FL (7.0-11.0); MONO % 4.8 % (0.0-8.0); MONOCYTE # 0.3 TH/MM3 (0-0.9); NEUT % 77.1 % (16.0-70.0); PLATELET COUNT 200 TH/MM3 (150-450); RED BLOOD COUNT 3.55 MIL/MM3 (4.50-5.90); RED CELL DISTRIBUTION WIDTH 20.8 % (11.6-17.2); WHITE BLOOD COUNT 6.7 TH/MM3 (4.0-11.0)
[2017-07-08 14:58] LABS: ALBUMIN 3.4 GM/DL (3.4-5.0); AST (GOT) 16 U/L (15-37); BLOOD UREA NITROGEN 25 MG/DL (7-18); CALCIUM 9.8 MG/DL (8.5-10.1); CHLORIDE 99 MEQ/L (98-107); CREATININE 1.23 MG/DL (0.60-1.30); GLOMERULAR FILTRATION RATE 56 ML/MIN (>89); GLUCOSE,RANDOM 133 MG/DL (74-106); LIPASE 77 U/L (73-393); SODIUM (NA) 134 MEQ/L (136-145)
[2017-07-08 14:59] LABS: ALT (GPT) 15 U/L (12-78)
[2017-07-08 15:01] LABS: ALKALINE PHOSPHATASE 101 U/L (45-117); TOTAL BILIRUBIN ADULT 0.4 MG/DL (0.2-1.0); TOTAL PROTEIN 7.6 GM/DL (6.4-8.2)
[2017-07-08 15:02] LABS: BILIRUBIN, URINE NEG (NEG); BLOOD, URINE NEG (NEG); GLUCOSE,URINE NEG (NEG); HYALINE CAST, URINE 45 /lpf (RARE); KETONE, URINE NEG (NEG); MUCUS URINE MANY /lpf (OCC); NITRITE,URINE NEG (NEG); PH, URINE 5.5 (5.0-8.5); SQUAMOUS EPITHELIAL CELL URINE <1 /hpf (0-5); URINE LEUKOCYTE ESTERASE TRACE (NEG)
[2017-07-08 15:03] LABS: URINE COLOR BROWN (YELLW/STRAW)
[2017-07-08] MEDS ORDERED: ONDANSETRON HCL 4 MG/2 ML VIAL IV PUSH ONE (16:15)
[2017-07-08] MEDS ORDERED: SODIUM CHLOR 0.9% 1000 ML INJ 1,000 ML IV ONE (16:15)
--- NOTE | 2017-07-08 16:18 | PD ---
HPI Chief Complaint: GI Complaint Time Seen by Provider: 15:39 Travel History International Travel<30 days: No Contact w/Intl Traveler<30days: No Traveled to known affect area: No History of Present Illness HPI The patient is a 82-year-old male who presents to the emergency department for nausea and vomiting. 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 The patient recently had an angiogram performed [address] Swift with balloon angioplasty but no stent placement. The patient states he had vegetable soup the last night and then developed nausea and vomiting. The patient then awakened this morning and tried the breakfast and lunch, however, vomited each episode approximately 30 minutes after eating. The patient states his last bowel movement was yesterday , normal, denies any history of previous abdominal surgeries or obstruction. He denies any company and abdominal pain or diarrhea. He denies any fever, chills, or sweats. He does complain of generalized malaise. Symptoms are mild to moderate without any alleviating or exacerbating factors. The patient also states that he has been taking tramadol for her to have pain that is prescribed by his franchise sales director, took 2 doses yesterday, is unsure if this is related to the nausea and vomiting. PFSH Past Medical History Hx Anticoagulant Therapy: Yes (Xarelto) Arthritis: Yes Atrial Fibrillation: Yes Autoimmune Disease: No Blood Disorders: No Anxiety: No Depression: No Heart Rhythm Problems: No Cancer: Yes (NOSE (SKIN)) Cardiovascular Problems: Yes (HTN) High Cholesterol: Yes Chest Pain: Yes Congestive Heart Failure: No Diabetes: Yes Patient Takes Glucophage: Yes Diminished Hearing: Yes Endocrine: No GERD: Yes Genitourinary: No Hepatitis: No Hiatal Hernia: No Hypertension: Yes Immune Disorder: No Musculoskeletal: Yes Neurologic: No Psychiatric: No Reproductive: No Respiratory: No Myocardial Infarction: No Thyroid Disease: No Tetanus Vaccination: Unknown Influenza Vaccination: Yes Past Surgical History Abdominal Surgery: No AICD: No Cardiac Surgery: Yes (CABG 09-27) Coronary Artery Bypass Graft: Yes (6 VESSELS IN 2005) Ear Surgery: No Endocrine Surgery: Yes (tonsils and adnoids removed) Eye Surgery: Yes (cataract removal bilateral) Genitourinary Surgery: No Gynecologic Surgery: No Joint Replacement: No Oral Surgery: No Pacemaker: No Thoracic Surgery: Yes Other Surgery: Yes (LOW BACK SURGERY, r shoulder sx) Social History Alcohol Use: No (QUIT 5 YEARS AGO) Tobacco Use: No (QUIT 30 YEARS AGO) Substance Use: No Allergies-Medications (Allergen,Severity, Reaction): Coded Allergies: No Known Allergies (Verified Adverse Reaction, Unknown, 07/02/17) Reported Meds & Prescriptions Reported Meds & Active Scripts Active Tramadol ER 24 HR (Tramadol HCl) 100 Mg Emeka 100 Mg PO DAILY Lantus Inj (Insulin Glargine) 1,000 Unit/10 Ml Vial 20 Units SQ HS 30 Days Potassium Chloride ER (Potassium Chloride) 20 Meq Tab 20 Meq PO BID Furosemide 20 Mg Tab 20 Mg PO BID Reported Gnp Iron (Ferrous Sulfate Dried) 325 Mg (65 Mg Iron) Tab 1 Tab PO TID Spironolactone 25 Mg Tab 25 Mg PO BIDPC Metoprolol Succinate ER 24 HR (Metoprolol Succinate) 200 Mg Tab 200 Mg PO DAILY Vitamin C (Ascorbic Acid) 250 Mg Chew 500 Mg CHEW DAILY Multi Vitamin Daily (Multiple Vitamin) 1 Tab Tab 1 Tab PO DAILY Aspirin 81 (Aspirin) 81 Mg Tabdr 81 Mg PO DAILY Xarelto (Rivaroxaban) 20 Mg Tab 25 Mg PO DAILY Ranitidine (Ranitidine HCl) 150 Mg Tab 150 Mg PO DAILY Ranexa ER 12 HR (Ranolazine) 1,000 Mg Tab 1,000 Mg PO BID Losartan (Losartan Potassium) 25 Mg Tab 25 Mg PO DAILY Isosorbide Mononitrate ER (Isosorbide Mononitrate) 120 Mg Emeka 120 Mg PO DAILY Metformin (Metformin HCl) 1,000 Mg Tab 1,000 Mg PO BIDPC Atorvastatin (Atorvastatin Calcium) 40 Mg Tab 40 Mg PO HS Review of Systems Except as stated in HPI: all other systems reviewed are Neg General / Constitutional: No: Fever Cardiovascular: No: Chest Pain or Discomfort Respiratory: No: Shortness of Breath Gastrointestinal: Positive: Nausea, Vomiting, No: Diarrhea, Abdominal Pain Musculoskeletal: Positive: Weakness Neurologic: Positive: Weakness Physical Exam Narrative GENERAL: Awake, alert, pleasant 82-year-old male who appears his stated age and is in no acute respiratory distress. SKIN: Focused skin assessment warm/dry. HEAD: Atraumatic. Normocephalic. EYES: Pupils equal and round. No scleral icterus. No injection or drainage. ENT: No nasal bleeding or discharge. Slightly dry mucous membranes. NECK: Trachea midline. No JVD. CARDIOVASCULAR: Regular rate and rhythm. No murmur appreciated. RESPIRATORY: No accessory muscle use. Clear to auscultation. Breath sounds equal bilaterally. GASTROINTESTINAL: Abdomen soft, non-tender, nondistended. No rebound tenderness. MUSCULOSKELETAL: Fifth digit of the right foot is necrotic, there is no drainage or weeping. 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 NEUROLOGICAL: Awake and alert. No obvious cranial nerve deficits. Motor grossly within normal limits. Normal speech. PSYCHIATRIC: Appropriate mood and affect; insight and judgment normal. Data Data Last Documented VS Vital Signs Date Time Temp Pulse Resp B/P (MAP) Pulse Ox O2 Delivery O2 Flow Rate FiO2 07/08/17 17:55 62 18 112/59 (76) 99 Room Air Orders Orders Complete Blood Count With Diff (07/08/17 14:12) Comprehensive Metabolic Panel (07/08/17 14:12) Urinalysis - C+S If Indicated (07/08/17 14:12) Lipase (07/08/17 14:12) Ondansetron Inj (Zofran Inj) (07/08/17 16:15) Sodium Chlor 0.9% 1000 Ml Inj (Ns 1000 M (07/08/17 16:15) Abdomen, Flat & Upright (07/08/17 ) Labs Laboratory Tests Test 07/08/17 14:18 07/08/17 14:29 White Blood Count 6.7 TH/MM3 Red Blood Count 3.55 MIL/MM3 Hemoglobin 10.3 GM/DL Hematocrit 31.7 % Mean Corpuscular Volume 89.3 FL Mean Corpuscular Hemoglobin 28.8 PG Mean Corpuscular Hemoglobin Concent 32.3 % Red Cell Distribution Width 20.8 % Platelet Count 200 TH/MM3 Mean Platelet Volume 8.4 FL Neutrophils (%) (Auto) 77.1 % Lymphocytes (%) (Auto) 16.9 % Monocytes (%) (Auto) 4.8 % Eosinophils (%) (Auto) 1.0 % Basophils (%) (Auto) 0.2 % Neutrophils # (Auto) 5.1 TH/MM3 Lymphocytes # (Auto) 1.1 TH/MM3 Monocytes # (Auto) 0.3 TH/MM3 Eosinophils # (Auto) 0.1 TH/MM3 Basophils # (Auto) 0.0 TH/MM3 CBC Comment DIFF FINAL Differential Comment Blood Urea Nitrogen 25 MG/DL Creatinine 1.23 MG/DL Random Glucose 133 MG/DL Total Protein 7.6 GM/DL Albumin 3.4 GM/DL Calcium Level 9.8 MG/DL Alkaline Phosphatase 101 U/L Aspartate Amino Transf (AST/SGOT) 16 U/L Alanine Aminotransferase (ALT/SGPT) 15 U/L Total Bilirubin 0.4 MG/DL Sodium Level 134 MEQ/L Potassium Level 5.6 MEQ/L Chloride Level 99 MEQ/L Carbon Dioxide Level 24.0 MEQ/L Anion Gap 11 MEQ/L Estimat Glomerular Filtration Rate 56 ML/MIN Lipase 77 U/L Urine Color BROWN Urine Turbidity CLEAR Urine pH 5.5 Urine Specific Newcomb 1.027 Urine Protein 30 mg/dL Urine Glucose (UA) NEG mg/dL Urine Ketones NEG mg/dL Urine Occult Blood NEG Urine Nitrite NEG Urine Bilirubin NEG Urine Urobilinogen 2.0 MG/DL Urine Leukocyte Esterase TRACE Urine RBC 2 /hpf Urine WBC 2 /hpf Urine Squamous Epithelial Cells <1 /hpf Urine Hyaline Casts 45 /lpf Urine Mucus MANY /lpf Microscopic Urinalysis Comment CULT NOT INDICATED MDM Medical Decision Making Medical Screen Exam Complete: Yes Emergency Medical Condition: Yes Medical Record Reviewed: Yes Interpretation(s) Last Impressions Abdomen X-Ray 07/08/17 0000 Signed Impressions: Service Date/Time: Saturday, July 08, 2017 16:22 - CONCLUSION: Benign abdomen Navid Hammonds MD Laboratory Tests Test 07/08/17 14:18 07/08/17 14:29 White Blood Count 6.7 TH/MM3 Red Blood Count 3.55 MIL/MM3 Hemoglobin 10.3 GM/DL Hematocrit 31.7 % Mean Corpuscular Volume 89.3 FL Mean Corpuscular Hemoglobin 28.8 PG Mean Corpuscular Hemoglobin Concent 32.3 % Red Cell Distribution Width 20.8 % Platelet Count 200 TH/MM3 Mean Platelet Volume 8.4 FL Neutrophils (%) (Auto) 77.1 % Lymphocytes (%) (Auto) 16.9 % Monocytes (%) (Auto) 4.8 % Eosinophils (%) (Auto) 1.0 % Basophils (%) (Auto) 0.2 % Neutrophils # (Auto) 5.1 TH/MM3 Lymphocytes # (Auto) 1.1 TH/MM3 Monocytes # (Auto) 0.3 TH/MM3 Eosinophils # (Auto) 0.1 TH/MM3 Basophils # (Auto) 0.0 TH/MM3 CBC Comment DIFF FINAL Differential Comment Blood Urea Nitrogen 25 MG/DL Creatinine 1.23 MG/DL Random Glucose 133 MG/DL Total Protein 7.6 GM/DL Albumin 3.4 GM/DL Calcium Level 9.8 MG/DL Alkaline Phosphatase 101 U/L Aspartate Amino Transf (AST/SGOT) 16 U/L Alanine Aminotransferase (ALT/SGPT) 15 U/L Total Bilirubin 0.4 MG/DL Sodium Level 134 MEQ/L Potassium Level 5.6 MEQ/L Chloride Level 99 MEQ/L Carbon Dioxide Level 24.0 MEQ/L Anion Gap 11 MEQ/L Estimat Glomerular Filtration Rate 56 ML/MIN Lipase 77 U/L Urine Color BROWN Urine Turbidity CLEAR Urine pH 5.5 Urine Specific Newcomb 1.027 Urine Protein 30 mg/dL Urine Glucose (UA) NEG mg/dL Urine Ketones NEG mg/dL Urine Occult Blood NEG Urine Nitrite NEG Urine Bilirubin NEG Urine Urobilinogen 2.0 MG/DL Urine Leukocyte Esterase TRACE Urine RBC 2 /hpf Urine WBC 2 /hpf Urine Squamous Epithelial Cells <1 /hpf Urine Hyaline Casts 45 /lpf Urine Mucus MANY /lpf Microscopic Urinalysis Comment CULT NOT INDICATED Differential Diagnosis Differential diagnosis includes gastroenteritis, food poisoning, gastritis, viral syndrome, ileus, small bowel obstruction, cholecystitis, electrolyte abnormality, dehydration. Narrative Course IV was established, labs are drawn and sent, and the patient was placed on cardiac telemetry monitoring and continuous pulse oximetry monitoring. The patient was administered Zofran and IV fluids. Labs reveal mild dehydration with mild hyperkalemia with potassium of 5.6. X-rays unremarkable, benign abdomen, but significant stool noted. No air-fluid levels to suggest ileus or small bowel obstruction. The patient was reevaluated at 5 PM. The patient's symptoms had improved, x-ray reveals no small bowel obstruction or ileus. The patient was given a by mouth challenge with crackers and Gatorade, tolerated oral intake without difficulty. The patient will be discharged home on Zofran and Colace twice a day, is advised to follow-up with his primary physician and return if symptoms worsen or progress. Diagnosis Primary Impression: Nausea and vomiting Qualified Codes: R11.2 - Nausea with vomiting, unspecified Additional Impression: Hyperkalemia Patient Instructions: General Instructions Additional Instructions: Clear liquid diet and advance as tolerated. Medications as directed. Please provide the patient a copy of his labs and x-ray results at discharge. Follow- up with her primary physician. Med/Other Pt SpecificInfo: Prescription(s) given Scripts Docusate Sodium (Colace) 100 Mg Capsule 1 TAB PO BID, #20 Prov: Johnie Askew MD 07/08/17 Ondansetron Odt (Zofran Odt) 4 Mg Tab 4 MG SL Q6HR Y for Nausea/Vomiting, #10 TAB 0 Refills Prov: Johnie Askew MD 07/08/17 Disposition: 01 DISCHARGE HOME Condition: Stable Johnie Askew MD Jul 08, 2017 16:18
--- NOTE | 2017-07-08 16:47 | RADRPT ---
EXAM DATE/TIME: 07/08/2017 16:22 [facility] COMPARISON: No previous studies available for comparison. INDICATIONS : Nausea and vomiting for 24 hours MEDICAL HISTORY : Diabetes mellitus type II. SURGICAL HISTORY : right toes amputated ENCOUNTER: Initial ACUITY: 1 day PAIN SCORE: 0/10 LOCATION: Bilateral abdomen FINDINGS: There is evidence of prior median sternotomy CABG with clear lung araujo appear degenerative changes of the thoracic or lumbar spine are appreciated and bony structures are intact. Mild distribution is benign with no significant extraneous calcifications and no evidence of free air. CONCLUSION: Benign abdomen Navid Hammonds MD on July 08, 2017 at 16:43 Board Certified Radiologist. This report was verified electronically.
[2017-07-08 17:55] VITALS: BP 112/59; PULSE 62; RESP 18; O2SAT 99
[2017-07-08] MEDS ORDERED: ZOFR4TAB3 SL (18:09)
[2017-07-08] MEDS ORDERED: COLA100C5 PO (18:09)
== END 2017-07-08 19:02 | disposition home or self-care (01) ==
LOC: NEPC 14:01
DX: R11.2 Nausea with vomiting, unspecified (principal); E87.5 Hyperkalemia; I48.91 Unspecified atrial fibrillation; Z79.01 Long term (current) use of anticoagulants; I10 Essential (primary) hypertension; E78.00 Pure hypercholesterolemia, unspecified; K21.9 Gastro-esophageal reflux disease without esophagitis; E11.9 Type 2 diabetes mellitus without complications
CPT/HCPCS: 74019; 80053; 81001; 83690; 85025; 96361; 96374; 99284; J2405; J7030

== ENCOUNTER 2017-08-08 12:39 | Inpatient (IN) | payer MEDICARE ==
[~2017-08-08] VITALS: Ht 170.2 cm; Wt 71.8 kg
[~2017-08-08 12:39] MED LIST changes: +COLA100C5 PO; +ZOFR4TAB3 SL
[2017-08-08 12:41] VITALS: BP 134/63; PULSE 66; RESP 16; TEMP 97.6; O2SAT 99
[2017-08-08 14:00] LABS: BASOPHIL % 0.2 % (0.0-2.0); EOSINOPHIL # 0.1 TH/MM3 (0-0.4); EOSINOPHIL % 1.4 % (0.0-4.0); HEMATOCRIT 32.4 % (39.0-51.0); HEMOGLOBIN 10.4 GM/DL (13.0-17.0); LYMPH % 22.2 % (9.0-44.0); LYMPHOCYTE # 1.6 TH/MM3 (1.0-4.8); MEAN CORPUSCULAR HEMOGLOBIN 27.4 PG (27.0-34.0); MEAN CORPUSCULAR HGB CONC 32.2 % (32.0-36.0); MEAN PLATELET VOLUME 8.3 FL (7.0-11.0); MONO % 6.5 % (0.0-8.0); MONOCYTE # 0.5 TH/MM3 (0-0.9); NEUT % 69.7 % (16.0-70.0); PLATELET COUNT 222 TH/MM3 (150-450); RED BLOOD COUNT 3.81 MIL/MM3 (4.50-5.90); RED CELL DISTRIBUTION WIDTH 19.5 % (11.6-17.2); WHITE BLOOD COUNT 7.1 TH/MM3 (4.0-11.0)
[2017-08-08 14:04] VITALS: BP 126/59; PULSE 65; RESP 20; O2SAT 99
--- NOTE | 2017-08-08 14:07 | PD ---
HPI Chief Complaint: Skin Problem Time Seen by Provider: 14:07 Travel History International Travel<30 days: No Contact w/Intl Traveler<30days: No Traveled to known affect area: No PFSH Past Medical History Hx Anticoagulant Therapy: Yes (XARELTO) Arthritis: Yes Atrial Fibrillation: Yes Autoimmune Disease: No Blood Disorders: No Anxiety: No Depression: No Heart Rhythm Problems: No Cancer: Yes (NOSE (SKIN)) Cardiovascular Problems: Yes (HTN) High Cholesterol: Yes Chest Pain: Yes Congestive Heart Failure: No Diabetes: Yes Patient Takes Glucophage: Yes Diminished Hearing: Yes Endocrine: No Gastrointestinal Disorders: Yes (GERD) GERD: Yes Genitourinary: No Hepatitis: No Hiatal Hernia: No Hypertension: Yes Immune Disorder: No Musculoskeletal: Yes Neurologic: No Psychiatric: No Reproductive: No Respiratory: No Myocardial Infarction: No Thyroid Disease: No Past Surgical History Abdominal Surgery: No AICD: No Cardiac Surgery: Yes (CABG 09-27) Coronary Artery Bypass Graft: Yes (6 VESSELS IN 2005) Ear Surgery: No Endocrine Surgery: Yes (tonsils and adnoids removed) Eye Surgery: Yes (cataract removal bilateral) Genitourinary Surgery: No Gynecologic Surgery: No Joint Replacement: No Neurologic Surgery: No Oral Surgery: No Pacemaker: No Thoracic Surgery: Yes Other Surgery: Yes (LOW BACK SURGERY, r shoulder sx) Social History Alcohol Use: No (QUIT 5 YEARS AGO) Tobacco Use: No (QUIT 30 YEARS AGO) Substance Use: No Allergies-Medications (Allergen,Severity, Reaction): Coded Allergies: No Known Allergies (Verified Adverse Reaction, Unknown, 08/08/17) Reported Meds & Prescriptions Reported Meds & Active Scripts Active Colace (Docusate Sodium) 100 Mg Capsule 1 Tab PO BID Zofran Odt (Ondansetron Odt) 4 Mg Tab 4 Mg SL Q6HR PRN Tramadol ER 24 HR (Tramadol HCl) 100 Mg Emeka 100 Mg PO DAILY Potassium Chloride ER (Potassium Chloride) 20 Meq Tab 20 Meq PO BID Reported Plavix (Clopidogrel Bisulfate) 75 Mg Tab 75 Mg PO DAILY Gnp Iron (Ferrous Sulfate Dried) 325 Mg (65 Mg Iron) Tab 1 Tab PO TID Metoprolol Succinate ER 24 HR (Metoprolol Succinate) 200 Mg Tab 200 Mg PO DAILY Vitamin C (Ascorbic Acid) 250 Mg Chew 500 Mg CHEW DAILY Multi Vitamin Daily (Multiple Vitamin) 1 Tab Tab 1 Tab PO DAILY Aspirin 81 (Aspirin) 81 Mg Tabdr 81 Mg PO DAILY Ranitidine (Ranitidine HCl) 150 Mg Tab 150 Mg PO DAILY Ranexa ER 12 HR (Ranolazine) 1,000 Mg Tab 1,000 Mg PO BID Losartan (Losartan Potassium) 25 Mg Tab 25 Mg PO DAILY Isosorbide Mononitrate ER (Isosorbide Mononitrate) 120 Mg Emeka 120 Mg PO DAILY Metformin (Metformin HCl) 1,000 Mg Tab 1,000 Mg PO BIDPC Atorvastatin (Atorvastatin Calcium) 40 Mg Tab 40 Mg PO HS Data Data Last Documented VS Vital Signs Date Time Temp Pulse Resp B/P (MAP) Pulse Ox O2 Delivery O2 Flow Rate FiO2 08/08/17 14:04 65 20 126/59 (81) 99 Room Air 08/08/17 12:41 97.6 Orders Orders Complete Blood Count With Diff (08/08/17 13:12) Comprehensive Metabolic Panel (08/08/17 13:12) Lactic Acid Sepsis Protocol (08/08/17 13:12) Blood Culture (08/08/17 13:12) Oximetry (08/08/17 13:12) Foot, Complete ([id number]) (08/08/17 ) Coag Profile (08/08/17 14:14) Wound Culture And Gram Stain (08/08/17 14:16) Vancomycin Inj (Vancomycin Inj) (08/08/17 14:27) Piperacil-Tazo 3.375 Gm Premix (Zosyn 3. (08/08/17 14:30) Sodium Chlor 0.9% 1000 Ml Inj (Ns 1000 M (08/08/17 14:30) Insulin Human Regular Inj (Novolin R Inj (08/08/17 15:15) Admit Order (Ed Use Only) (08/08/17 16:21) Labs Laboratory Tests Test 08/08/17 13:21 08/08/17 13:27 08/08/17 14:15 Lactic Acid Level 4.2 mmol/L White Blood Count 7.1 TH/MM3 Red Blood Count 3.81 MIL/MM3 Hemoglobin 10.4 GM/DL Hematocrit 32.4 % Mean Corpuscular Volume 85.0 FL Mean Corpuscular Hemoglobin 27.4 PG Mean Corpuscular Hemoglobin Concent 32.2 % Red Cell Distribution Width 19.5 % Platelet Count 222 TH/MM3 Mean Platelet Volume 8.3 FL Neutrophils (%) (Auto) 69.7 % Lymphocytes (%) (Auto) 22.2 % Monocytes (%) (Auto) 6.5 % Eosinophils (%) (Auto) 1.4 % Basophils (%) (Auto) 0.2 % Neutrophils # (Auto) 5.0 TH/MM3 Lymphocytes # (Auto) 1.6 TH/MM3 Monocytes # (Auto) 0.5 TH/MM3 Eosinophils # (Auto) 0.1 TH/MM3 Basophils # (Auto) 0.0 TH/MM3 CBC Comment DIFF FINAL Differential Comment Blood Urea Nitrogen 32 MG/DL Creatinine 1.14 MG/DL Random Glucose 354 MG/DL Total Protein 7.3 GM/DL Albumin 3.2 GM/DL Calcium Level 9.6 MG/DL Alkaline Phosphatase 104 U/L Aspartate Amino Transf (AST/SGOT) 8 U/L Alanine Aminotransferase (ALT/SGPT) 16 U/L Total Bilirubin 0.3 MG/DL Sodium Level 134 MEQ/L Potassium Level 6.1 MEQ/L Chloride Level 99 MEQ/L Carbon Dioxide Level 28.7 MEQ/L Anion Gap 6 MEQ/L Estimat Glomerular Filtration Rate 61 ML/MIN Prothrombin Time 13.5 SEC Prothromb Time International Ratio 1.3 RATIO Activated Partial Thromboplast Time 36.4 SEC Argelia Espinoza Aug 08, 2017 14:07
[2017-08-08 14:15] LABS: ALBUMIN 3.2 GM/DL (3.4-5.0); AST (GOT) 8 U/L (15-37); BICARBONATE 28.7 MEQ/L (21.0-32.0); BLOOD UREA NITROGEN 32 MG/DL (7-18); CALCIUM 9.6 MG/DL (8.5-10.1); CHLORIDE 99 MEQ/L (98-107); CREATININE 1.14 MG/DL (0.60-1.30); GLOMERULAR FILTRATION RATE 61 ML/MIN (>89); GLUCOSE,RANDOM 354 MG/DL (74-106); SODIUM (NA) 134 MEQ/L (136-145)
[2017-08-08 14:17] LABS: ALKALINE PHOSPHATASE 104 U/L (45-117); ALT (GPT) 16 U/L (12-78); TOTAL BILIRUBIN ADULT 0.3 MG/DL (0.2-1.0); TOTAL PROTEIN 7.3 GM/DL (6.4-8.2)
[2017-08-08] MEDS ORDERED: VANCOMYCIN INJ 1,000 MG in SODIUM CHLOR 0.9% 250 ML INJ 250 ML IV STA (14:27)
[2017-08-08 14:28] LABS: LACTIC ACID SEPSIS PROTOCOL 4.2 mmol/L (0.4-2.0)
[2017-08-08] MEDS ORDERED: PIPERACIL-TAZO 3.375 GM PREMIX 50 ML IV ONE (14:30)
[2017-08-08] MEDS ORDERED: SODIUM CHLOR 0.9% 1000 ML INJ 1,000 ML IV ONE (14:30)
--- NOTE | 2017-08-08 14:58 | RADRPT ---
EXAM DATE/TIME: 08/08/2017 14:37 [facility] COMPARISON: No previous studies available for comparison. INDICATIONS : Right foot pain, diabetic ulcer on 5th digit. MEDICAL HISTORY : Hypertension. Diabetes mellitus type II. SURGICAL HISTORY : None. ENCOUNTER: Initial ACUITY: 2 weeks PAIN SCORE: 3/10 LOCATION: Right foot, 5th digit. FINDINGS: Arterial vascular calcification is present throughout the foot. Soft tissue swelling is seen along th e dorsum and medial aspect of the foot. There are no destructive bony changes identified involving the little toe. [id number] degenerative joint disease is seen in the first metatarsophalangeal joint. CONCLUSION: 1. No evidence of destructive bony process involving the fifth toe. 2. Generalized calcific atherosclerotic disease 3. 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 Manuel Smith MD on August 08, 2017 at 14:55 Board Certified Radiologist. This report was verified electronically.
[2017-08-08] MEDS ORDERED: PLAV75TA29 PO (15:00)
[2017-08-08] MEDS ORDERED: GLUC1000 PO (15:00)
[2017-08-08 15:08] LABS: INTERNATIONAL NORMALIZED RATIO 1.3 RATIO; PROTHROMBIN TIME - PATIENT 13.5 SEC (9.8-11.6)
[2017-08-08] MEDS ORDERED: INSULIN HUMAN REGULAR 1,000 UNITS/10 ML VIAL IV PUSH ONE (15:15)
[2017-08-08] MEDS ORDERED: SODIUM CHLORIDE 0.9% FLUSH 10 ML FLUSH IV FLUSH PRN (16:30)
[2017-08-08] MEDS ORDERED: NALOXONE HCL 0.4 MG/ML AMP IV PUSH PRN (16:30)
[2017-08-08] MEDS ORDERED: SENNOSIDES 8.6 MG TAB PO PRN (16:30)
[2017-08-08] MEDS ORDERED: LACTULOSE SYRUP 20 GM/30 ML CUP PO PRN (16:30)
[2017-08-08] MEDS ORDERED: BISACODYL 10 MG SUPP RECTAL PRN (16:30)
[2017-08-08] MEDS ORDERED: MAGNESIUM HYDROXIDE SUSP 30 ML CUP PO PRN (16:30)
[2017-08-08] MEDS ORDERED: ONDANSETRON HCL 4 MG/2 ML VIAL IVP PRN (16:30)
--- NOTE | 2017-08-08 16:36 | PD ---
Physical Exam Date Seen by Provider: Aug 08, 2017 Time Seen by Provider: 14:30 Narrative I, Dr. Shah, have reviewed the advance practice practitioner's documentation and am in agreement, met with the patient face to face, made the diagnosis, and the medical decision making was done by me. *My assessment and Findings: Patient seen and evaluated with nurse practitioner , please see nurse practitioner for further details. He has been sent by his bioinformatician due to worsening infection in the fifth toe. Evaluation shows dry gangrene with surrounding erythema and edema over the base of the toe concerning for worsening cellulitis. IV antibiotics were initiated after cultures were drawn. Laboratory Tests Test 08/08/17 13:21 08/08/17 13:27 08/08/17 14:15 Lactic Acid Level 4.2 mmol/L (0.4-2.0) Red Blood Count 3.81 MIL/MM3 (4.50-5.90) Hemoglobin 10.4 GM/DL (13.0-17.0) Hematocrit 32.4 % (39.0-51.0) Red Cell Distribution Width 19.5 % (11.6-17.2) Blood Urea Nitrogen 32 MG/DL (7-18) Random Glucose 354 MG/DL (74-106) Albumin 3.2 GM/DL (3.4-5.0) Aspartate Amino Transf (AST/SGOT) 8 U/L (15-37) Sodium Level 134 MEQ/L (136-145) Potassium Level 6.1 MEQ/L (3.5-5.1) Estimat Glomerular Filtration Rate 61 ML/MIN (>89) Prothrombin Time 13.5 SEC (9.8-11.6) Activated Partial Thromboplast Time 36.4 SEC (24.3-30.1) Last 24 hours Impressions Foot X-Ray 08/08/17 0000 Signed Impressions: Service Date/Time: July 14:37 - CONCLUSION: 1. No evidence of destructive bony process involving the fifth toe. 2. Generalized calcific atherosclerotic disease 3. 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 Manuel Smith MD At this point, case is discussed with hospitalist for admission for further treatment. Podiatry will need to be consulted for possible need for further debridement. Data Data Last Documented VS Vital Signs Date Time Temp Pulse Resp B/P (MAP) Pulse Ox O2 Delivery O2 Flow Rate FiO2 08/08/17 14:04 65 20 126/59 (81) 99 Room Air 08/08/17 12:41 97.6 Orders Orders Complete Blood Count With Diff (08/08/17 13:12) Comprehensive Metabolic Panel (08/08/17 13:12) Lactic Acid Sepsis Protocol (08/08/17 13:12) Blood Culture (08/08/17 13:12) Oximetry (08/08/17 13:12) Foot, Complete ([id number]) (08/08/17 ) Coag Profile (08/08/17 14:14) Wound Culture And Gram Stain (08/08/17 14:16) Vancomycin Inj (Vancomycin Inj) (08/08/17 14:27) Piperacil-Tazo 3.375 Gm Premix (Zosyn 3. (08/08/17 14:30) Sodium Chlor 0.9% 1000 Ml Inj (Ns 1000 M (08/08/17 14:30) Insulin Human Regular Inj (Novolin R Inj (08/08/17 15:15) Admit Order (Ed Use Only) (08/08/17 16:21) Aspirin Ec (Ecotrin Ec) (08/09/17 09:00) Atorvastatin (Lipitor) (08/08/17 21:00) Ferrous Sulfate (Ferrous Sulfate) (08/08/17 18:00) Isosorbide Mononitrate (Imdur) (08/09/17 09:00) Losartan (Cozaar) (08/09/17 09:00) (Nf) Ascorbic Acid (Vitamin C) (08/09/17 09:00) (Nf) Metoprolol Succinate Er 24 Hr (08/09/17 09:00) (Nf) Multiple Vitamin (Multi Vitamin [place] (08/09/17 09:00) (Nf) Ranitidine (08/09/17 09:00) (Nf) Ranolazine Er 12 Hr (Ranexa Er 12 H (08/08/17 21:00) Admit To Inpatient (08/08/17 ) Vital Signs (Adult) Q4H (08/08/17 16:26) Activity Oob With Assistance (08/08/17 16:26) Threading Machine Setter / Telemetry .CONTINUOUS (08/08/17 16:26) Intake + Output CHRISTIANA.QSHIFT (08/08/17 16:26) Diet Heart Healthy (08/08/17 Dinner) Sodium Chloride 0.9% Flush (Ns Flush) (08/08/17 16:30) Sodium Chloride 0.9% Flush (Ns Flush) (08/08/17 21:00) Acetaminophen (Tylenol) (08/08/17 16:30) Ondansetron Inj (Zofran Inj) (08/08/17 16:30) Basic Metabolic Panel (Bmp) (08/09/17 06:00) Complete Blood Count With Diff (08/09/17 06:00) Heparin Inj (Heparin Inj) (08/08/17 16:30) Naloxone Inj (Narcan Inj) (08/08/17 16:30) Magnesium Hydroxide Liq (Milk Of Magnesi (08/08/17 16:30) Sennosides (Senokot) (08/08/17 16:30) Bisacodyl Supp (Dulcolax Supp) (08/08/17 16:30) Lactulose Liq (Lactulose Liq) (08/08/17 16:30) Inpatient Certification (08/08/17 ) Consult Podiatry (08/08/17 ) Labs Laboratory Tests Test 08/08/17 13:21 08/08/17 13:27 08/08/17 14:15 Lactic Acid Level 4.2 mmol/L White Blood Count 7.1 TH/MM3 Red Blood Count 3.81 MIL/MM3 Hemoglobin 10.4 GM/DL Hematocrit 32.4 % Mean Corpuscular Volume 85.0 FL Mean Corpuscular Hemoglobin 27.4 PG Mean Corpuscular Hemoglobin Concent 32.2 % Red Cell Distribution Width 19.5 % Platelet Count 222 TH/MM3 Mean Platelet Volume 8.3 FL Neutrophils (%) (Auto) 69.7 % Lymphocytes (%) (Auto) 22.2 % Monocytes (%) (Auto) 6.5 % Eosinophils (%) (Auto) 1.4 % Basophils (%) (Auto) 0.2 % Neutrophils # (Auto) 5.0 TH/MM3 Lymphocytes # (Auto) 1.6 TH/MM3 Monocytes # (Auto) 0.5 TH/MM3 Eosinophils # (Auto) 0.1 TH/MM3 Basophils # (Auto) 0.0 TH/MM3 CBC Comment DIFF FINAL Differential Comment Blood Urea Nitrogen 32 MG/DL Creatinine 1.14 MG/DL Random Glucose 354 MG/DL Total Protein 7.3 GM/DL Albumin 3.2 GM/DL Calcium Level 9.6 MG/DL Alkaline Phosphatase 104 U/L Aspartate Amino Transf (AST/SGOT) 8 U/L Alanine Aminotransferase (ALT/SGPT) 16 U/L Total Bilirubin 0.3 MG/DL Sodium Level 134 MEQ/L Potassium Level 6.1 MEQ/L Chloride Level 99 MEQ/L Carbon Dioxide Level 28.7 MEQ/L Anion Gap 6 MEQ/L Estimat Glomerular Filtration Rate 61 ML/MIN Prothrombin Time 13.5 SEC Prothromb Time International Ratio 1.3 RATIO Activated Partial Thromboplast Time 36.4 SEC [facility] Medical Record Reviewed: Yes Supervised Visit with GUERITA: Yes Diagnosis Primary Impression: Cellulitis of fifth toe of right foot Additional Impressions: Sepsis Diabetes mellitus type 2 with atherosclerosis of arteries of extremities Admitting Information Admitting Physician Requests: Admit Mathieu Shah MD Aug 08, 2017 16:36
[2017-08-08 16:53] VITALS: BP 104/58; PULSE 70; RESP 17; O2SAT 99
--- NOTE | 2017-08-08 17:24 | PD ---
HPI Chief Complaint: Skin Problem Time Seen by Provider: 14:07 Travel History International Travel<30 days: No Contact w/Intl Traveler<30days: No Traveled to known affect area: No History of Present Illness HPI 82-year-old male with history of diabetes, PAD, CAD to include CABG 6, A. fib on Xarelto, hypertension, presents to the emergency department for evaluation of his right fifth toe. Patient states he is seen by Dr. Carrillo and they have decided to "let the toe on it's own." He states he was fine doing this until the last couple days when the base of the toe became reddened and developed a foul-smelling purulent drainage. Pain is enough to make him aware but has history of neuropathy so it hasn't gotten significantly worse. Patient states he hasn't felt well but he has had no fever or chills. Denies any new injury. No chest pain or tightness. No nausea or vomiting. He has had no other symptoms to report. PFSH Past Medical History Hx Anticoagulant Therapy: Yes (XARELTO) Arthritis: Yes Atrial Fibrillation: Yes Autoimmune Disease: No Blood Disorders: No Anxiety: No Depression: No Heart Rhythm Problems: No Cancer: Yes (NOSE (SKIN)) Cardiovascular Problems: Yes (HTN) High Cholesterol: Yes Chest Pain: Yes Congestive Heart Failure: No Diabetes: Yes Patient Takes Glucophage: Yes Diminished Hearing: Yes Endocrine: No Gastrointestinal Disorders: Yes (GERD) GERD: Yes Genitourinary: No Hepatitis: No Hiatal Hernia: No Hypertension: Yes Immune Disorder: No Musculoskeletal: Yes Neurologic: No Psychiatric: No Reproductive: No Respiratory: No Myocardial Infarction: No Thyroid Disease: No Past Surgical History Abdominal Surgery: No AICD: No Cardiac Surgery: Yes (CABG 09-27) Coronary Artery Bypass Graft: Yes (6 VESSELS IN 2005) Ear Surgery: No Endocrine Surgery: Yes (tonsils and adnoids removed) Eye Surgery: Yes (cataract removal bilateral) Genitourinary Surgery: No Gynecologic Surgery: No Joint Replacement: No Oral Surgery: No Pacemaker: No Thoracic Surgery: Yes Other Surgery: Yes (LOW BACK SURGERY, r shoulder sx) Social History Alcohol Use: No (QUIT 5 YEARS AGO) Tobacco Use: No (QUIT 30 YEARS AGO) Substance Use: No Allergies-Medications (Allergen,Severity, Reaction): Coded Allergies: No Known Allergies (Verified Adverse Reaction, Unknown, 2/15/18) Reported Meds & Prescriptions Reported Meds & Active Scripts Active Colace (Docusate Sodium) 100 Mg Capsule 1 Tab PO BID Zofran Odt (Ondansetron Odt) 4 Mg Tab 4 Mg SL Q6HR PRN Tramadol ER 24 HR (Tramadol HCl) 100 Mg Emeka 100 Mg PO DAILY Potassium Chloride ER (Potassium Chloride) 20 Meq Tab 20 Meq PO BID Reported Plavix (Clopidogrel Bisulfate) 75 Mg Tab 75 Mg PO DAILY Gnp Iron (Ferrous Sulfate Dried) 325 Mg (65 Mg Iron) Tab 1 Tab PO TID Metoprolol Succinate ER 24 HR (Metoprolol Succinate) 200 Mg Tab 200 Mg PO DAILY Vitamin C (Ascorbic Acid) 250 Mg Chew 500 Mg CHEW DAILY Multi Vitamin Daily (Multiple Vitamin) 1 Tab Tab 1 Tab PO DAILY Aspirin 81 (Aspirin) 81 Mg Tabdr 81 Mg PO DAILY Ranitidine (Ranitidine HCl) 150 Mg Tab 150 Mg PO DAILY Ranexa ER 12 HR (Ranolazine) 1,000 Mg Tab 1,000 Mg PO BID Losartan (Losartan Potassium) 25 Mg Tab 25 Mg PO DAILY Isosorbide Mononitrate ER (Isosorbide Mononitrate) 120 Mg Emeka 120 Mg PO DAILY Metformin (Metformin HCl) 1,000 Mg Tab 1,000 Mg PO BIDPC Atorvastatin (Atorvastatin Calcium) 40 Mg Tab 40 Mg PO HS Review of Systems Except as stated in HPI: all other systems reviewed are Neg Physical Exam Narrative GENERAL: Well-nourished male patient, sitting in bed in no acute distress. SKIN: Focused skin assessment warm/dry. HEAD: Atraumatic. Normocephalic. EYES: Pupils equal and round. No scleral icterus. No injection or drainage. ENT: No nasal bleeding or discharge. Mucous membranes pink and moist. NECK: Trachea midline. No JVD. CARDIOVASCULAR: Regular rate. 2/6 systolic murmur appreciated. RESPIRATORY: No accessory muscle use. Clear to auscultation. Breath sounds equal bilaterally. GASTROINTESTINAL: Abdomen soft, non-tender, nondistended. Hepatic and splenic margins not palpable. MUSCULOSKELETAL: No obvious deformities. No clubbing. No cyanosis. No edema. Distal pulses are palpable although thready. The right fifth toe is completely necrotic with a small erythematous base and a purulent drainage. NEUROLOGICAL: Awake and alert. No obvious cranial nerve deficits. Motor grossly within normal limits. Normal speech. PSYCHIATRIC: Appropriate mood and affect; insight and judgment normal. Data Data Last Documented VS Vital Signs Date Time Temp Pulse Resp B/P (MAP) Pulse Ox O2 Delivery O2 Flow Rate FiO2 08/08/17 14:04 65 20 126/59 (81) 99 Room Air 08/08/17 12:41 97.6 Orders Orders Complete Blood Count With Diff (08/08/17 13:12) Comprehensive Metabolic Panel (08/08/17 13:12) Lactic Acid Sepsis Protocol (08/08/17 13:12) Blood Culture (08/08/17 13:12) Oximetry (08/08/17 13:12) Foot, Complete ([id number]) (08/08/17 ) Coag Profile (08/08/17 14:14) Wound Culture And Gram Stain (08/08/17 14:16) Vancomycin Inj (Vancomycin Inj) (08/08/17 14:27) Piperacil-Tazo 3.375 Gm Premix (Zosyn 3. (08/08/17 14:30) Sodium Chlor 0.9% 1000 Ml Inj (Ns 1000 M (08/08/17 14:30) Insulin Human Regular Inj (Novolin R Inj (08/08/17 15:15) Admit Order (Ed Use Only) (08/08/17 16:21) Labs Laboratory Tests Test 08/08/17 13:21 08/08/17 13:27 08/08/17 14:15 Lactic Acid Level 4.2 mmol/L White Blood Count 7.1 TH/MM3 Red Blood Count 3.81 MIL/MM3 Hemoglobin 10.4 GM/DL Hematocrit 32.4 % Mean Corpuscular Volume 85.0 FL Mean Corpuscular Hemoglobin 27.4 PG Mean Corpuscular Hemoglobin Concent 32.2 % Red Cell Distribution Width 19.5 % Platelet Count 222 TH/MM3 Mean Platelet Volume 8.3 FL Neutrophils (%) (Auto) 69.7 % Lymphocytes (%) (Auto) 22.2 % Monocytes (%) (Auto) 6.5 % Eosinophils (%) (Auto) 1.4 % Basophils (%) (Auto) 0.2 % Neutrophils # (Auto) 5.0 TH/MM3 Lymphocytes # (Auto) 1.6 TH/MM3 Monocytes # (Auto) 0.5 TH/MM3 Eosinophils # (Auto) 0.1 TH/MM3 Basophils # (Auto) 0.0 TH/MM3 CBC Comment DIFF FINAL Differential Comment Blood Urea Nitrogen 32 MG/DL Creatinine 1.14 MG/DL Random Glucose 354 MG/DL Total Protein 7.3 GM/DL Albumin 3.2 GM/DL Calcium Level 9.6 MG/DL Alkaline Phosphatase 104 U/L Aspartate Amino Transf (AST/SGOT) 8 U/L Alanine Aminotransferase (ALT/SGPT) 16 U/L Total Bilirubin 0.3 MG/DL Sodium Level 134 MEQ/L Potassium Level 6.1 MEQ/L Chloride Level 99 MEQ/L Carbon Dioxide Level 28.7 MEQ/L Anion Gap 6 MEQ/L Estimat Glomerular Filtration Rate 61 ML/MIN Prothrombin Time 13.5 SEC Prothromb Time International Ratio 1.3 RATIO Activated Partial Thromboplast Time 36.4 SEC MDM Medical Decision Making Medical Screen Exam Complete: Yes Emergency Medical Condition: Yes Medical Record Reviewed: Yes Differential Diagnosis Gangrene versus drive versus osteomyelitis versus sepsis Narrative Course 82-year-old male presents to emergency department for evaluation of a drainage and odor from his right fifth toe. Patient appears without distress. His vital signs are stable. I have contacted Dr. Borrego who is on-call for Dr. Zuluaga. She does mention a vascular consult. She will see him tomorrow in rounds. Laboratory Tests Test 08/08/17 13:21 08/08/17 13:27 08/08/17 14:15 Lactic Acid Level 4.2 mmol/L White Blood Count 7.1 TH/MM3 Red Blood Count 3.81 MIL/MM3 Hemoglobin 10.4 GM/DL Hematocrit 32.4 % Mean Corpuscular Volume 85.0 FL Mean Corpuscular Hemoglobin 27.4 PG Mean Corpuscular Hemoglobin Concent 32.2 % Red Cell Distribution Width 19.5 % Platelet Count 222 TH/MM3 Mean Platelet Volume 8.3 FL Neutrophils (%) (Auto) 69.7 % Lymphocytes (%) (Auto) 22.2 % Monocytes (%) (Auto) 6.5 % Eosinophils (%) (Auto) 1.4 % Basophils (%) (Auto) 0.2 % Neutrophils # (Auto) 5.0 TH/MM3 Lymphocytes # (Auto) 1.6 TH/MM3 Monocytes # (Auto) 0.5 TH/MM3 Eosinophils # (Auto) 0.1 TH/MM3 Basophils # (Auto) 0.0 TH/MM3 CBC Comment DIFF FINAL Differential Comment Blood Urea Nitrogen 32 MG/DL Creatinine 1.14 MG/DL Random Glucose 354 MG/DL Total Protein 7.3 GM/DL Albumin 3.2 GM/DL Calcium Level 9.6 MG/DL Alkaline Phosphatase 104 U/L Aspartate Amino Transf (AST/SGOT) 8 U/L Alanine Aminotransferase (ALT/SGPT) 16 U/L Total Bilirubin 0.3 MG/DL Sodium Level 134 MEQ/L Potassium Level 6.1 MEQ/L Chloride Level 99 MEQ/L Carbon Dioxide Level 28.7 MEQ/L Anion Gap 6 MEQ/L Estimat Glomerular Filtration Rate 61 ML/MIN Prothrombin Time 13.5 SEC Prothromb Time International Ratio 1.3 RATIO Activated Partial Thromboplast Time 36.4 SEC Last Impressions Foot X-Ray 08/08/17 0000 Signed Impressions: Service Date/Time: July 14:37 - CONCLUSION: 1. No evidence of destructive bony process involving the fifth toe. 2. Generalized calcific atherosclerotic disease 3. 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 Manuel Smith MD Patient has been given IV vancomycin and Zosyn. Normal saline bolus per septic protocol will not be given due to patient's significant cardiac history. I discussed the patient my attending who is also assessed him and reviewed the findings. Patient be admitted to [facility]. Consult to vascular and podiatry will be placed. Diagnosis Primary Impression: Cellulitis of fifth toe of right foot Additional Impressions: Diabetes mellitus type 2 with atherosclerosis of arteries of extremities Sepsis Admitting Information Admitting Physician Requests: Admit Condition: Stable Argelia Espinoza Aug 08, 2017 17:24
--- NOTE | 2017-08-08 18:17 | HHI.HP ---
[facility] Pramod Neri MD Admission Diagnosis Toe cellulitis/sepsis Diagnoses: Chief Complaint: Worsening right toe infection Travel History International Travel<30 Days: No Contact w/Intl Traveler <30 Da: No Traveled to Known Affected Are: No History of Present Illness 82-year-old male with a medical history significant for diabetes, hypertension, coronary artery disease status post CABG, atrial fibrillation sent to the emergency room by psychology clinician office for worsening right fifth toe infection. Patient reports he has been having issue with the right fifth toe since December of last year. He has been following with Dr. Carrillo who has been trying to solve age to toe. He underwent revascularization procedure a few weeks ago. He reports over the past couple of weeks the tip of the toe continues to turn black and it has been bleeding and at times has a foul-smelling purulent discharge. There is no surrounding erythema. He denies fevers or chills at home. Review of Systems Constitutional: DENIES: Fever, Chills Cardiovascular: DENIES: Chest pain, Dyspnea on Exertion Musculoskeletal: COMPLAINS OF: Joint pain, Joint Swelling Except as stated in HPI: all other systems reviewed are Neg Past Family Social History Past Medical History DM Hypertension CAD s/p CABG CHF possibly Atrial fibrillation Past Surgical History History of CABG Left foot with partial amputation Right rotator cuff repair Reported Medications Reported Meds & Active Scripts Active Colace (Docusate Sodium) 100 Mg Capsule 1 Tab PO BID Zofran Odt (Ondansetron Odt) 4 Mg Tab 4 Mg SL Q6HR PRN Tramadol ER 24 HR (Tramadol HCl) 100 Mg Emeka 100 Mg PO DAILY Potassium Chloride ER (Potassium Chloride) 20 Meq Tab 20 Meq PO BID Reported Plavix (Clopidogrel Bisulfate) 75 Mg Tab 75 Mg PO DAILY Gnp Iron (Ferrous Sulfate Dried) 325 Mg (65 Mg Iron) Tab 1 Tab PO TID Metoprolol Succinate ER 24 HR (Metoprolol Succinate) 200 Mg Tab 200 Mg PO DAILY Vitamin C (Ascorbic Acid) 250 Mg Chew 500 Mg CHEW DAILY Multi Vitamin Daily (Multiple Vitamin) 1 Tab Tab 1 Tab PO DAILY Aspirin 81 (Aspirin) 81 Mg Tabdr 81 Mg PO DAILY Ranitidine (Ranitidine HCl) 150 Mg Tab 150 Mg PO DAILY Ranexa ER 12 HR (Ranolazine) 1,000 Mg Tab 1,000 Mg PO BID Losartan (Losartan Potassium) 25 Mg Tab 25 Mg PO DAILY Isosorbide Mononitrate ER (Isosorbide Mononitrate) 120 Mg Emeka 120 Mg PO DAILY Metformin (Metformin HCl) 1,000 Mg Tab 1,000 Mg PO BIDPC Atorvastatin (Atorvastatin Calcium) 40 Mg Tab 40 Mg PO HS Allergies: Coded Allergies: No Known Allergies (Verified Adverse Reaction, Unknown, 08/08/17) Family History Reviewed and found to be noncontributory. Social History Denies alcohol, tobacco, or illicit drug use. Physical Exam Vital Signs Vital Signs Date Time Temp Pulse Resp B/P (MAP) Pulse Ox O2 Delivery O2 Flow Rate FiO2 08/08/17 16:53 70 17 104/58 (73) 99 Room Air 08/08/17 14:04 65 20 126/59 (81) 99 Room Air 08/08/17 14:04 66 20 08/08/17 12:41 97.6 66 16 134/63 (86) 99 Physical Exam GENERAL: This is a well-nourished, well-developed patient, in no apparent distress. SKIN: Right fifth toe with gangrene, surrounding cellulitis, dried blood. HEAD: Atraumatic. Normocephalic. No temporal or scalp tenderness. EYES: Pupils equal round and reactive. Extraocular motions intact. No scleral icterus. No injection or drainage. ENT: Nose without bleeding, purulent drainage or septal hematoma. Throat without erythema, tonsillar hypertrophy or exudate. Uvula midline. Airway patent. NECK: Trachea midline. No JVD or lymphadenopathy. Supple, nontender, no meningeal signs. CARDIOVASCULAR: Regular rate and rhythm without murmurs, gallops, or rubs. RESPIRATORY: Clear to auscultation. Breath sounds equal bilaterally. No wheezes , rales, or rhonchi. GASTROINTESTINAL: Abdomen soft, non-tender, nondistended. No hepato-splenomegaly , or palpable masses. No guarding. MUSCULOSKELETAL: Right fifth toe with gangrene, surrounding cellulitis, dried blood. Very tender to palpation. NEUROLOGICAL: Awake and alert. Cranial nerves II through XII intact. Motor and sensory grossly within normal limits. Five out of 5 muscle strength in all muscle groups. Normal speech. Laboratory Laboratory Tests Test 08/08/17 13:21 08/08/17 13:27 08/08/17 14:15 Lactic Acid Level 4.2 White Blood Count 7.1 Red Blood Count 3.81 Hemoglobin 10.4 Hematocrit 32.4 Mean Corpuscular Volume 85.0 Mean Corpuscular Hemoglobin 27.4 Mean Corpuscular Hemoglobin Concent 32.2 Red Cell Distribution Width 19.5 Platelet Count 222 Mean Platelet Volume 8.3 Neutrophils (%) (Auto) 69.7 Lymphocytes (%) (Auto) 22.2 Monocytes (%) (Auto) 6.5 Eosinophils (%) (Auto) 1.4 Basophils (%) (Auto) 0.2 Neutrophils # (Auto) 5.0 Lymphocytes # (Auto) 1.6 Monocytes # (Auto) 0.5 Eosinophils # (Auto) 0.1 Basophils # (Auto) 0.0 CBC Comment DIFF FINAL Differential Comment Blood Urea Nitrogen 32 Creatinine 1.14 Random Glucose 354 Total Protein 7.3 Albumin 3.2 Calcium Level 9.6 Alkaline Phosphatase 104 Aspartate Amino Transf (AST/SGOT) 8 Alanine Aminotransferase (ALT/SGPT) 16 Total Bilirubin 0.3 Sodium Level 134 Potassium Level 6.1 Chloride Level 99 Carbon Dioxide Level 28.7 Anion Gap 6 Estimat Glomerular Filtration Rate 61 Prothrombin Time 13.5 Prothromb Time International Ratio 1.3 Activated Partial Thromboplast Time 36.4 Date/Time Source Procedure Growth Status 08/08/17 13:27 Blood Peripheral Aerobic Blood Culture Pending Received 08/08/17 13:27 Blood Peripheral Anaerobic Blood Culture Pending Received 08/08/17 14:15 Wound Toe Gram Stain - Final Resulted 08/08/17 14:15 Wound Toe Wound Culture Pending Resulted Result Diagram: 08/08/17 1327 08/08/17 1327 Imaging Last Impressions Foot X-Ray 08/08/17 0000 Signed Impressions: Service Date/Time: July 14:37 - CONCLUSION: 1. No evidence of destructive bony process involving the fifth toe. 2. Generalized calcific atherosclerotic disease 3. 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 MD [place] Rothman VTE Risk Assessment [place] VTE Risk Assessment: Mod/High Risk (score >= 2) VTE Pharm Contraindication: High risk for bleeding Caprini Risk Assessment Model Point Value = 1 Point Value = 2 Point Value = 3 Point Value = 5 Age 41-60 Minor surgery BMI > 25 kg/m2 Swollen legs Varicose veins or History of unexplained or recurrent spontaneous Oral contraceptives or hormone replacement Sepsis (< 1 month) Serious lung disease, including pneumonia (< 1 month) Abnormal pulmonary function Acute myocardial infarction Congestive heart failure (< 1 month) History of inflammatory bowel disease Medical patient at bed rest Age 61-74 Arthroscopic surgery Major open surgery (> 45 min) Laparoscopic surgery (> 45 min) Malignancy Confined to bed (> 72 hours) Immobilizing plaster cast Central venous access Age >= 75 History of VTE Family history of VTE Factor V Leiden Prothrombin [id number] Lupus anticoagulant Anticardiolipin antibodies Elevated serum homocysteine Heparin-induced thrombocytopenia Other congenital or acquired thrombophilia Stroke (< 1 month) Elective arthroplasty Hip, pelvis, or leg fracture Acute spinal cord injury (< 1 month) Prophylaxis Regimen Total Risk Factor Score Risk Level Prophylaxis Regimen 0-1 Low Early ambulation 2 Moderate Order ONE of the following: *Sequential Compression Device (SCD) *Heparin 5000 units SQ BID 3-4 Higher Order ONE of the following medications: *Heparin 5000 units SQ TID *Enoxaparin/Lovenox 40 mg SQ daily (WT < 150 kg, CrCl > 30 mL/min) *Enoxaparin/Lovenox 30 mg SQ daily (WT < 150 kg, CrCl > 10-29 mL/min) *Enoxaparin/Lovenox 30 mg SQ BID (WT < 150 kg, CrCl > 30 mL/min) AND/OR *Sequential Compression Device (SCD) 5 or more Highest Order ONE of the following medications: *Heparin 5000 units SQ TID (Preferred with Epidurals) *Enoxaparin/Lovenox 40 mg SQ daily (WT < 150 kg, CrCl > 30 mL/min) *Enoxaparin/Lovenox 30 mg SQ daily (WT < 150 kg, CrCl > 10-29 mL/min) *Enoxaparin/Lovenox 30 mg SQ BID (WT < 150 kg, CrCl > 30 mL/min) AND *Sequential Compression Device (SCD) Assessment and Plan Problem List: (1) Gangrene of toe of right foot ICD Code: I96 - Gangrene, not elsewhere classified (2) Cellulitis of fifth toe of right foot ICD Code: L03.031 - Cellulitis of right toe Status: Acute (3) Diabetes mellitus type 2 with atherosclerosis of arteries of extremities ICD Code: E11.59 - Type 2 diabetes mellitus with other circulatory complications; I70.209 - Unspecified atherosclerosis of [place] arteries of extremities, unspecified extremity Status: Acute (4) CHF (congestive heart failure) ICD Code: I50.9 - Heart failure, unspecified (5) Hyperkalemia ICD Code: E87.5 - Hyperkalemia Assessment and Plan 82-year-old male with right ascending right toe infection, apparent gangrene. Right fifth toe gangrene with surrounding cellulitis: - Will likely need amputation. - Patient's psychology clinician consulted - Continue antibiotics with vancomycin and Zosyn - Follow wound and blood cultures. - Pain control Type 2 diabetes: - Sliding scale insulin with Accu-Cheks - Diabetic diet. Systolic congestive heart failure/coronary artery disease status post CABG: - Stable from a cardiac standpoint. - Continue all cardiac medications. Hyperkalemia: Mild. Patient has been on potassium supplement at home. - Discontinue supplement and recheck BMP in a.m. GI prophylaxis: Stool softener PRN constipation. DVT PPx: Heparin Code Status Full Discussed Condition With Dr. Gill Physician Certification 2 Midnight Certification Type: Admission for Inpatient Services Order for Inpatient Services The services are ordered in accordance with Medicare regulations or non- Medicare payer requirements, as applicable. In the case of services not specified as inpatient-only, they are appropriately provided as inpatient services in accordance with the 2-midnight benchmark. Estimated LOS (days): 3 days is the estimated time the patient will need to remain in the hospital, assuming treatment plan goals are met and no additional complications. Post-Hospital Plan: Home Irving Hollingsworth MD Aug 08, 2017 18:17
[2017-08-08] MEDS: FERROUS SULFATE 325 MG (65 MG ELEMENTAL IRON) TAB PO SCH (18:31)
[2017-08-08] MEDS: HEPARIN SODIUM - SQ 10,000 UNITS/ML VIAL SQ SCH (18:31)
[2017-08-08] MEDS ORDERED: DEXTROSE 50% IN WATER 50 ML VIAL(D50) IV PUSH PRN (19:15)
[2017-08-08] MEDS ORDERED: GLUCAGON 1 MG/ML VIAL OTHER PRN (19:15)
[2017-08-08 20:00] VITALS: BP 155/74; PULSE 66; RESP 18; TEMP 97.2; O2SAT 96
[2017-08-08] MEDS: INSULIN ASPART SUPPLEMENTAL SCALE SQ SCH (20:06)
[2017-08-08] MEDS ORDERED: SODIUM POLYSTYRENE SULFONATE SUSP 15 GM/60 ML CUP PO ONE (21:30)
[2017-08-08 22:00] VITALS: PULSE 72
[2017-08-08] MEDS: RANOLAZINE 500 MG EXTENDED RELEASE TAB PO SCH (22:11)
[2017-08-08] MEDS: ATORVASTATIN 40 MG TAB PO SCH (22:11)
[2017-08-08] MEDS: SODIUM CHLORIDE 0.9% FLUSH 10 ML FLUSH IV FLUSH SCH (22:12)
[2017-08-08] MEDS: PIPERACIL-TAZO 3.375 GM PREMIX 50 ML IV SCH (23:29)
[2017-08-08] MEDS: ACETAMINOPHEN 325 MG TAB PO PRN (23:30)
[2017-08-09] VITALS: BP 99/50; PULSE 71; RESP 18; TEMP 97.4; O2SAT 95
[2017-08-09 04:00] VITALS: BP 111/55; PULSE 70; PULSE 73; RESP 18; TEMP 97.8; O2SAT 98
[2017-08-09] MEDS: HEPARIN SODIUM - SQ 10,000 UNITS/ML VIAL SQ SCH ×2 (06:18→18:10)
[2017-08-09 08:00] VITALS: BP 129/63; PULSE 75; PULSE 76; RESP 18; TEMP 97.5; O2SAT 98
[2017-08-09] MEDS: INSULIN ASPART SUPPLEMENTAL SCALE SQ SCH ×4 (08:00→20:20)
[2017-08-09 08:04] LABS: AUTOMATED NEUTROPHIL # 4.4 TH/MM3 (1.8-7.7); BASOPHIL % 0.4 % (0.0-2.0); EOSINOPHIL # 0.1 TH/MM3 (0-0.4); EOSINOPHIL % 1.8 % (0.0-4.0); HEMATOCRIT 28.4 % (39.0-51.0); HEMOGLOBIN 9.4 GM/DL (13.0-17.0); LYMPH % 22.9 % (9.0-44.0); LYMPHOCYTE # 1.5 TH/MM3 (1.0-4.8); MEAN CELL VOLUME 83.7 FL (80.0-100.0); MEAN CORPUSCULAR HEMOGLOBIN 27.6 PG (27.0-34.0); MEAN CORPUSCULAR HGB CONC 32.9 % (32.0-36.0); MEAN PLATELET VOLUME 8.1 FL (7.0-11.0); MONO % 5.7 % (0.0-8.0); MONOCYTE # 0.4 TH/MM3 (0-0.9); NEUT % 69.2 % (16.0-70.0); PLATELET COUNT 198 TH/MM3 (150-450); RED CELL DISTRIBUTION WIDTH 19.6 % (11.6-17.2); WHITE BLOOD COUNT 6.4 TH/MM3 (4.0-11.0)
[2017-08-09] MEDS: FERROUS SULFATE 325 MG (65 MG ELEMENTAL IRON) TAB PO SCH ×3 (08:16→18:09)
[2017-08-09] MEDS: ASCORBIC ACID 500 MG TAB PO SCH (08:16)
[2017-08-09] MEDS: MULTIVITAMIN TAB PO SCH (08:17)
[2017-08-09] MEDS: FAMOTIDINE 20 MG TAB PO SCH ×2 (08:17→20:20)
[2017-08-09] MEDS: ISOSORBIDE MONONITRATE 60 MG CR TAB (IMDUR) PO SCH (08:17)
[2017-08-09] MEDS: METOPROLOL SUCCINATE 50 MG EXTENDED RELEASE TAB PO SCH (08:17)
[2017-08-09] MEDS: RANOLAZINE 500 MG EXTENDED RELEASE TAB PO SCH ×2 (08:17→20:20)
[2017-08-09] MEDS: ASPIRIN EC 81 MG TABEC PO SCH (08:18)
[2017-08-09] MEDS: SODIUM CHLORIDE 0.9% FLUSH 10 ML FLUSH IV FLUSH SCH ×2 (08:18→20:20)
[2017-08-09] MEDS: PIPERACIL-TAZO 3.375 GM PREMIX 50 ML IV SCH ×3 (08:19→23:17)
[2017-08-09 08:30] LABS: BICARBONATE 28.2 MEQ/L (21.0-32.0); CALCIUM 8.7 MG/DL (8.5-10.1); CREATININE 0.89 MG/DL (0.60-1.30)
[2017-08-09] MEDS ORDERED: LOSARTAN 25 MG TAB PO SCH (09:00)
--- NOTE | 2017-08-09 09:20 | HHI.PR ---
Subjective Remarks Patient reports he is feeling okay today. Pain is controlled. No fevers or chills. Objective Vitals Vital Signs Date Time Temp Pulse Resp B/P (MAP) Pulse Ox O2 Delivery O2 Flow Rate FiO2 08/09/17 08:00 97.5 76 18 129/63 (85) 98 08/09/17 04:00 97.8 73 18 111/55 (73) 98 08/09/17 04:00 70 08/09/17 00:00 71 08/09/17 00:00 97.4 71 18 99/50 (66) 95 08/08/17 22:00 72 08/08/17 20:00 97.2 66 18 155/74 (101) 96 08/08/17 19:16 08/08/17 16:53 70 17 104/58 (73) 99 Room Air 08/08/17 14:04 65 20 126/59 (81) 99 Room Air 08/08/17 14:04 66 20 08/08/17 12:41 97.6 66 16 134/63 (86) 99 I/O 08/08/17 08/08/17 08/08/17 08/09/17 08/09/17 08/09/17 07:00 15:00 23:00 07:00 15:00 23:00 Intake Total 100 ml Balance 100 ml Intake IV Total 100 ml # Voids 2 # Bowel Movements 1 Result Diagram: 08/09/17 0725 08/09/17 0735 Objective Remarks GENERAL: This is a well-nourished, well-developed patient, in no apparent distress. SKIN: Right fifth toe with gangrene, surrounding cellulitis, dried blood. CARDIOVASCULAR: Regular rate and rhythm without murmurs, gallops, or rubs. RESPIRATORY: Clear to auscultation. Breath sounds equal bilaterally. No wheezes , rales, or rhonchi. GASTROINTESTINAL: Abdomen soft, non-tender, nondistended. No hepato-splenomegaly , or palpable masses. No guarding. MUSCULOSKELETAL: Right fifth toe with gangrene, surrounding cellulitis, dried blood. Very tender to palpation. NEUROLOGICAL: Awake and alert. Normal speech. A/P Problem List: (1) Gangrene of toe of right foot ICD Code: I96 - Gangrene, not elsewhere classified (2) Cellulitis of fifth toe of right foot ICD Code: L03.031 - Cellulitis of right toe Status: Acute (3) Diabetes mellitus type 2 with atherosclerosis of arteries of extremities ICD Code: E11.59 - Type 2 diabetes mellitus with other circulatory complications; I70.209 - Unspecified atherosclerosis of [place] arteries of extremities, unspecified extremity Status: Acute (4) CHF (congestive heart failure) ICD Code: I50.9 - Heart failure, unspecified (5) Hyperkalemia ICD Code: E87.5 - Hyperkalemia Assessment and Plan 82-year-old male with right ascending right toe infection, apparent gangrene. Right fifth toe gangrene with surrounding cellulitis: - Will likely need amputation. - Podiatry and Vascular surgery consulted - Continue antibiotics with vancomycin and Zosyn - Follow wound and blood cultures. - Pain control Type 2 diabetes: - Sliding scale insulin with Accu-Cheks - Diabetic diet. Systolic congestive heart failure/coronary artery disease status post CABG: - Stable from a cardiac standpoint. - Continue all cardiac medications. Hyperkalemia:On presentation Mild. Patient has been on potassium supplement at home. - Resolved. GI prophylaxis: Stool softener PRN constipation. DVT PPx: Heparin Irving Hollingsworth MD Aug 09, 2017 09:20
[2017-08-09] MEDS: VANCOMYCIN INJ 1,000 MG in SODIUM CHLOR 0.9% 250 ML INJ 250 ML IV SCH (09:25)
[2017-08-09 12:00] VITALS: BP 114/55; PULSE 73; PULSE 74; RESP 18; TEMP 97.3; O2SAT 97
--- NOTE | 2017-08-09 14:06 | RADRPT ---
EXAM DATE/TIME: 08/09/2017 00:00 [place] COMPARISON: No previous studies available for comparison. INDICATIONS : Toe cellulitis, sepsis TECHNIQUE: Four-cuff ankle and brachial pressures were obtained. Pulse cuff waveform tracings of the ankles were recorded, and ankle-brachial indices were calculated. PRESSURES (mmHg): Brachial (arm): Right 124 Ankle: Right >250 CNO Left >250 CNO FELIPA: Right CNO Left CNO TBI: Right 0.54 Left AMPUTEE PULSED CUFF WAVEFORMS: Demonstrate decreased amplitude bilaterally. CONCLUSION: 1. Ankle brachial indices could not be obtained. 2. Normal range right toe brachial index. 3. Decreased amplitude of pulsed cuff waveforms in the left ankle. This likely reflects some degree o f left lower extremity peripheral arterial disease although examination is incomplete. Boyd Houston MD on August 09, 2017 at 14:01 Board Certified Radiologist. This report was verified electronically.
[2017-08-09 16:00] VITALS: BP 142/69; PULSE 76; RESP 18; TEMP 98; O2SAT 100
--- NOTE | 2017-08-09 17:06 | MB ---
cc: BECCA CRUZ DATE OF CONSULTATION: 08/09/2017. REASON FOR CONSULTATION: Right fifth digit dry gangrene. HISTORY OF PRESENT ILLNESS: Mr. Brown is an 82-year-old male patient with a significant history of diabetes, hypertension, coronary artery disease and right fifth digit gangrene. The patient states he has had this issue since December of last year. He has been seeing Dr. Zuluaga in the office but Dr. Carrillo told him he could either have the toe amputated or it would fall off on its own. The patient elected to try and have it just fall on its own; however, he is here still having acute infection at this time. He did have a revascularization with Dr. Swift in early June but there appears to be significant peripheral artery disease still present. The patient denies any nausea or vomiting, fevers, headaches or chills. PAST MEDICAL HISTORY: 1. Diabetes mellitus. 2. Hypertension. 3. Coronary artery disease status post CABG. 4. Congestive heart failure. 5. Atrial fibrillation. PAST SURGICAL HISTORY: 1. CABG. 2. A left foot TMA. 3. Right rotator cuff repair. MEDICATIONS: Please see list. ALLERGIES: NO KNOWN DRUG ALLERGIES. FAMILY HISTORY: Noncontributory. SOCIAL HISTORY: The patient denies any alcohol or drug abuse. PHYSICAL EXAMINATION: VITAL SIGNS: Temperature is 97.8 which is also his T-max. Pulse is 70. Blood pressure 111/55, pulse oximetry 98% 02 on room air. On physical exam, the patient has a left foot distal TMA. Right foot full thickness necrosis to the right fifth digit with purulent drainage . Positive malodor. Periwound erythema. Nonpalpable dorsalis pedis or posterior tibial pulses. Skin is cool to touch. LABS: White count is 7.1, hemoglobin 10.3, hematocrit 32.4, platelets 222,000. INR is 1.3. Sodium 134, potassium 6.1, carbon dioxide 28.7, BUN 32, random glucose 354. RADIOLOGICAL STUDIES: X-rays are negative for any gas in the soft tissue or cortical erosion to bone of the fifth digit. ASSESSMENT AND PLAN: 1)Right foot fifth digit dry gangrene with cellulitis. -The patient needs a toe amputation; however, I am unsure of his vascular status and if he can heal an amputation. He had angioplasty with Dr. Swift in June, and judging from the report, it seems that he felt he was able to achieve some vessel runoff, but I am unsure if these are still open as there are no palpable pulses in the leg and it feels cool to touch. -Vascular surgery has been consulted to see the patient. -Pending evaluation from vascular and any possible improvement in the circulation, the patient does need a toe amputation, most likely on this admission. -Continue IV antibiotics. -Will determine a plan of action within the next one to two days. Thank you for this consultation. Becca WEBER/YUNIOR /8:01 AM /4:49 PM MTDEduarda
[2017-08-09] MEDS ORDERED: TORS20TA PO (18:23)
[2017-08-09] MEDS ORDERED: SPIR25TA PO (18:23)
[2017-08-09 20:00] VITALS: BP 147/72; PULSE 70; RESP 16; TEMP 97.3; O2SAT 99
[2017-08-09] MEDS: ATORVASTATIN 40 MG TAB PO SCH (20:20)
--- NOTE | 2017-08-09 20:23 | PD.VS.CON ---
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 Has been under the care of Dr. Carrillo but presented for admission with worsening R 5th toe pain and odor. Pt notes purulence and blood. No malaise or F/C. Past/Family/Social History Past Medical History DM HTN CAD A fib PAD CAD Past Surgical History CABG L TMA Shoulder surgery Social History NC Family History NC Home Medications Active Scripts Docusate Sodium (Colace) 100 Mg Capsule, 1 TAB PO BID, #20 Prov:Johnie Askew MD 07/08/17 Ondansetron Odt (Zofran Odt) 4 Mg Tab, 4 MG SL Q6HR Y for Nausea/Vomiting, #10 TAB 0 Refills Prov:Johnie Askew MD 07/08/17 Tramadol ER 24 HR (Tramadol ER 24 HR) 100 Mg Emeka, 100 MG PO DAILY for Pain Management, #30 TAB 0 Refills Prov:Ayaan Carrillo DPM 07/02/17 Potassium Chloride ER (Potassium Chloride ER) 20 Meq Tab, 20 MEQ PO BID for Electrolyte Replacement, #60 TAB 0 Refills Prov:Wero Scott DO 05/31/17 Reported Medications Torsemide (Torsemide) 20 Mg Tab, 20 MG PO DAILY, #30 TAB 0 Refills 08/09/17 Spironolactone (Spironolactone) 25 Mg Tab, 25 MG PO DAILY, #30 TAB 0 Refills 08/09/17 Clopidogrel (Plavix) 75 Mg Tab, 75 MG PO DAILY for Blood Clot Prevention, #30 TAB 0 Refills 08/08/17 Ferrous Sulfate Dried (Gnp Iron) 325 Mg (65 Mg Iron) Tab, 1 TAB PO TID 06/11/17 Metoprolol Succinate ER 24 HR (Metoprolol Succinate ER 24 HR) 200 Mg Tab, 200 MG PO DAILY, #30 TAB 0 Refills 05/28/17 Ascorbic Acid (Vitamin C) 250 Mg Chew, 500 MG CHEW DAILY for Nutritional Supplement, #30 TAB 0 Refills 05/09/17 Multiple Vitamin (Multi Vitamin Daily) 1 Tab Tab, 1 TAB PO DAILY 05/09/[address] (Aspirin 81) 81 Mg Tabdr, 81 MG PO DAILY, TAB 0 Refills 05/09/17 Ranitidine (Ranitidine) 150 Mg Tab, 150 MG PO DAILY for Heartburn Management, # 30 TAB 0 Refills 05/09/17 Ranolazine ER 12 HR (Ranexa ER 12 HR) 1,000 Mg Tab, 1000 MG PO BID for Chest Pain, #60 TAB 0 Refills 05/09/17 Losartan (Losartan) 25 Mg Tab, 25 MG PO DAILY for Blood Pressure Management, # 30 TAB 0 Refills 05/09/17 Isosorbide Mononitrate ER (Isosorbide Mononitrate ER) 120 Mg Emeka, 120 MG PO DAILY for Prevent Chest Pain, #30 TAB 0 Refills 05/09/17 Metformin (Metformin) 1,000 Mg Tab, 1000 MG PO BIDPC for Blood Sugar Management , #60 TAB 0 Refills 05/09/17 Atorvastatin (Atorvastatin) 40 Mg Tab, 40 MG PO HS for Cholesterol Management, # 30 TAB 0 Refills 05/09/17 Discontinued Reported Medications Metformin (Glucophage) 1,000 Mg Tab, PO BIDPC for Blood Sugar Management, #60 TAB 0 Refills 08/08/17 Spironolactone (Spironolactone) 25 Mg Tab, 25 MG PO BIDPC, #60 TAB 0 Refills 06/11/17 Rivaroxaban (Xarelto) 20 Mg Tab, 25 MG PO DAILY for Blood Clot Prevention, TAB 0 Refills 05/09/17 Discontinued Scripts Insulin Glargine Inj (Lantus Inj) 1,000 Unit/10 Ml Vial, 20 UNITS SQ HS for Blood Sugar Management for 30 Days, VIAL 0 Refills Prov:Wero Scott DO 05/31/17 Furosemide (Furosemide) 20 Mg Tab, 20 MG PO BID for Heart failure, #60 TAB 0 Refills Prov:Wero Scott DO 05/31/17 Coded Allergies: No Known Allergies (Verified Adverse Reaction, Unknown, 08/08/17) Review of Systems Constitutional: DENIES: Fever Physical Exam Vitals/I&O Date Time Temp Pulse Resp B/P (MAP) Pulse Ox O2 Delivery O2 Flow Rate FiO2 08/09/17 16:00 76 08/09/17 16:00 98.0 76 18 142/69 (93) 100 08/09/17 12:00 97.3 74 18 114/55 (74) 97 08/09/17 12:00 73 08/09/17 08:00 97.5 76 18 129/63 (85) 98 08/09/17 08:00 75 08/09/17 04:00 97.8 73 18 111/55 (73) 98 08/09/17 04:00 70 08/09/17 00:00 71 08/09/17 00:00 97.4 71 18 99/50 (66) 95 08/08/17 22:00 72 08/09/17 08/09/17 08/09/17 07:00 15:00 23:00 Intake Total 100 ml 720 ml Balance 100 ml 720 ml Neuro: alert, oriented, no distress HEENT: NC/AT Neck: no JVD Heart: irreg rate Lungs: clear Vascular: nonpalpable pedal pulses Extremities: R 5th toe with gangrene, + odor no forefoot erythema Laboratory Tests Test 08/09/17 07:25 08/09/17 07:35 08/09/17 12:45 White Blood Count 6.4 Red Blood Count 3.40 Hemoglobin 9.4 Hematocrit 28.4 Mean Corpuscular Volume 83.7 Mean Corpuscular Hemoglobin 27.6 Mean Corpuscular Hemoglobin Concent 32.9 Red Cell Distribution Width 19.6 Platelet Count 198 Mean Platelet Volume 8.1 Neutrophils (%) (Auto) 69.2 Lymphocytes (%) (Auto) 22.9 Monocytes (%) (Auto) 5.7 Eosinophils (%) (Auto) 1.8 Basophils (%) (Auto) 0.4 Neutrophils # (Auto) 4.4 Lymphocytes # (Auto) 1.5 Monocytes # (Auto) 0.4 Eosinophils # (Auto) 0.1 Basophils # (Auto) 0.0 CBC Comment DIFF FINAL Differential Comment Blood Urea Nitrogen 25 Creatinine 0.89 Random Glucose 196 326 Calcium Level 8.7 Sodium Level 138 Potassium Level 4.4 Chloride Level 103 Carbon Dioxide Level 28.2 Anion Gap 7 Estimat Glomerular Filtration Rate 82 Date/Time Source Procedure Growth Status 08/08/17 13:27 Blood Peripheral Aerobic Blood Culture - Preliminary NO GROWTH IN 1 DAY Resulted 08/08/17 13:27 Blood Peripheral Anaerobic Blood Culture - Preliminary NO GROWTH IN 1 DAY Resulted 08/08/17 14:15 Wound Toe Gram Stain - Final Resulted 08/08/17 14:15 Wound Culture - Preliminary Staphylococcus Aureus Resulted Last 48 hours Impressions Foot X-Ray 08/08/17 0000 Signed Impressions: Service Date/Time: July 14:37 - CONCLUSION: 1. No evidence of destructive bony process involving the fifth toe. 2. Generalized calcific atherosclerotic disease 3. 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 Manuel Smith MD Assessment and Plan Plan PAD and R 5th toe gangrene, s/p R AT/PT FEATHER MAKER PVR suggests mild PAD and toe pressure of 67 suggests adequate perfusion to heal amputation. Would propose toe amputation and if slow/stagnant healing, will repeat angiogram. Discussed with patient and daughter at bedside. Will follow. Laureano Swift MD FACS RPVI solid tire tuber machine operator [facility] - Heart and Vascular Surgery at [facility] [phone] Laureano Swift MD Aug 09, 2017 20:23
[2017-08-09] MEDS: ACETAMINOPHEN 325 MG TAB PO PRN (23:17)
[2017-08-10] VITALS (8 sets, daily range): BP systolic 98–140; BP diastolic 55–76; PULSE 56–92; RESP 16–18; TEMP 97.1–97.8; O2SAT 93–99
[2017-08-10] MEDS: HEPARIN SODIUM - SQ 10,000 UNITS/ML VIAL SQ SCH ×2 (04:01→16:21)
[2017-08-10 05:57] LABS: HEMATOCRIT 28.8 % (39.0-51.0); HEMOGLOBIN 9.2 GM/DL (13.0-17.0); MEAN CELL VOLUME 83.9 FL (80.0-100.0); MEAN CORPUSCULAR HEMOGLOBIN 26.8 PG (27.0-34.0); MEAN PLATELET VOLUME 8.2 FL (7.0-11.0); PLATELET COUNT 197 TH/MM3 (150-450); RED BLOOD COUNT 3.43 MIL/MM3 (4.50-5.90); WHITE BLOOD COUNT 5.6 TH/MM3 (4.0-11.0)
[2017-08-10 06:29] LABS: CALCIUM 8.6 MG/DL (8.5-10.1); CREATININE 0.9 MG/DL (0.60-1.30)
[2017-08-10] MEDS: PIPERACIL-TAZO 3.375 GM PREMIX 50 ML IV SCH ×3 (08:20→23:08)
[2017-08-10] MEDS: INSULIN ASPART SUPPLEMENTAL SCALE SQ SCH ×4 (08:22→20:37)
[2017-08-10] MEDS: ISOSORBIDE MONONITRATE 60 MG CR TAB (IMDUR) PO SCH (08:23)
[2017-08-10] MEDS: ASPIRIN EC 81 MG TABEC PO SCH (08:23)
[2017-08-10] MEDS: SODIUM CHLORIDE 0.9% FLUSH 10 ML FLUSH IV FLUSH SCH ×2 (08:23→20:39)
[2017-08-10] MEDS: MULTIVITAMIN TAB PO SCH (08:24)
[2017-08-10] MEDS: RANOLAZINE 500 MG EXTENDED RELEASE TAB PO SCH ×2 (08:24→20:36)
[2017-08-10] MEDS: FAMOTIDINE 20 MG TAB PO SCH ×2 (08:24→20:36)
[2017-08-10] MEDS: ASCORBIC ACID 500 MG TAB PO SCH (08:25)
[2017-08-10] MEDS: METOPROLOL SUCCINATE 50 MG EXTENDED RELEASE TAB PO SCH (08:25)
[2017-08-10] MEDS: FERROUS SULFATE 325 MG (65 MG ELEMENTAL IRON) TAB PO SCH ×4 (08:25→18:00)
[2017-08-10] MEDS: VANCOMYCIN INJ 1,000 MG in SODIUM CHLOR 0.9% 250 ML INJ 250 ML IV SCH (09:00)
--- NOTE | 2017-08-10 14:56 | HHI.PR ---
Subjective Remarks Patient reports he is feeling okay. Pain comes and goes but is mostly controlled. No fevers or chills. Objective Vitals Vital Signs Date Time Temp Pulse Resp B/P (MAP) Pulse Ox O2 Delivery O2 Flow Rate FiO2 08/10/17 12:00 97.3 76 18 127/76 (93) 99 08/10/17 08:00 97.7 82 18 133/67 (89) 96 08/10/17 04:00 97.8 73 16 126/62 (83) 93 08/10/17 04:00 69 08/10/17 00:00 97.6 56 16 98/55 (69) 98 08/10/17 00:00 71 08/09/17 20:00 70 08/09/17 20:00 97.3 70 16 147/72 (97) 99 08/09/17 16:00 76 08/09/17 16:00 98.0 76 18 142/69 (93) 100 I/O 08/09/17 08/09/17 08/09/17 08/10/17 08/10/17 08/10/17 07:00 15:00 23:00 07:00 15:00 23:00 Intake Total 100 ml 720 ml 260 ml Balance 100 ml 720 ml 260 ml Intake Oral 720 ml 210 ml IV Total 100 ml 50 ml # Voids 2 8 4 # Bowel Movements 1 Result Diagram: 08/10/1714 08/10/17513 Objective Remarks GENERAL: This is a well-nourished, well-developed patient, in no apparent distress. SKIN: Right fifth toe with gangrene, surrounding cellulitis, scant drainage. CARDIOVASCULAR: Regular rate and rhythm without murmurs, gallops, or rubs. RESPIRATORY: Clear to auscultation. Breath sounds equal bilaterally. No wheezes , rales, or rhonchi. GASTROINTESTINAL: Abdomen soft, non-tender, nondistended. No hepato-splenomegaly , or palpable masses. No guarding. MUSCULOSKELETAL: Right fifth toe with gangrene, surrounding cellulitis, dried blood. Very tender to palpation. NEUROLOGICAL: Awake and alert. Normal speech. A/P Problem List: (1) Gangrene of toe of right foot ICD Code: I96 - Gangrene, not elsewhere classified (2) Cellulitis of fifth toe of right foot ICD Code: L03.031 - Cellulitis of right toe Status: Acute (3) Diabetes mellitus type 2 with atherosclerosis of arteries of extremities ICD Code: E11.59 - Type 2 diabetes mellitus with other circulatory complications; I70.209 - Unspecified atherosclerosis of [place] arteries of extremities, unspecified extremity Status: Acute (4) CHF (congestive heart failure) ICD Code: I50.9 - Heart failure, unspecified (5) Hyperkalemia ICD Code: E87.5 - Hyperkalemia Assessment and Plan 82-year-old male with ascending right toe infection, apparent gangrene. Right fifth toe gangrene with surrounding cellulitis:. - Podiatry and Vascular surgery following. Amputation timing to be determined by podiatry. - Continue antibiotics with vancomycin and Zosyn - Follow wound and blood cultures. - Pain control Type 2 diabetes: - Sliding scale insulin with Accu-Cheks - Diabetic diet. Systolic congestive heart failure/coronary artery disease status post CABG: - Stable from a cardiac standpoint. - Continue all cardiac medications. Hyperkalemia:On presentation Mild. Patient has been on potassium supplement at home. - Resolved. GI prophylaxis: Stool softener PRN constipation. DVT PPx: Heparin Irving Hollingsworth MD Aug 10, 2017 14:55
[2017-08-10] MEDS: ATORVASTATIN 40 MG TAB PO SCH (20:36)
[2017-08-10] MEDS: ACETAMINOPHEN 325 MG TAB PO PRN (22:06)
[2017-08-11] VITALS (9 sets, daily range): BP systolic 114–147; BP diastolic 57–81; PULSE 64–79; RESP 16–20; TEMP 96.8–98.2; O2SAT 96–100
[2017-08-11] MEDS: HEPARIN SODIUM - SQ 10,000 UNITS/ML VIAL SQ SCH ×2 (05:00→17:00)
[2017-08-11] MEDS: INSULIN ASPART SUPPLEMENTAL SCALE SQ SCH ×4 (08:00→21:06)
[2017-08-11] MEDS: ISOSORBIDE MONONITRATE 60 MG CR TAB (IMDUR) PO SCH (08:41)
[2017-08-11] MEDS: FERROUS SULFATE 325 MG (65 MG ELEMENTAL IRON) TAB PO SCH ×3 (08:41→16:56)
[2017-08-11] MEDS: FAMOTIDINE 20 MG TAB PO SCH ×2 (08:41→21:05)
[2017-08-11] MEDS: PIPERACIL-TAZO 3.375 GM PREMIX 50 ML IV SCH ×2 (08:41→09:50)
[2017-08-11] MEDS: RANOLAZINE 500 MG EXTENDED RELEASE TAB PO SCH ×2 (08:42→21:04)
[2017-08-11] MEDS: METOPROLOL SUCCINATE 50 MG EXTENDED RELEASE TAB PO SCH (08:42)
[2017-08-11] MEDS: ASCORBIC ACID 500 MG TAB PO SCH (08:42)
[2017-08-11] MEDS: MULTIVITAMIN TAB PO SCH (08:42)
[2017-08-11] MEDS: SODIUM CHLORIDE 0.9% FLUSH 10 ML FLUSH IV FLUSH SCH ×2 (09:00→21:00)
[2017-08-11] MEDS: VANCOMYCIN INJ 1,000 MG in SODIUM CHLOR 0.9% 250 ML INJ 250 ML IV SCH ×2 (09:00→11:24)
[2017-08-11] MEDS: ASPIRIN EC 81 MG TABEC PO SCH (09:00)
[2017-08-11] MEDS ORDERED: NEOMYCIN/POLYMYXIN 1 ML G.U. IRRIGANT ONE (09:12)
[2017-08-11] MEDS ORDERED: DO NOT ADM ANY ANTICOAGULANT DRUGS PRN (10:00)
--- NOTE | 2017-08-11 11:07 | HHI.PR ---
Subjective Remarks Patient reports he is feeling okay except for some pain at the foot. He is status post toe amputation. Objective Vitals Vital Signs Date Time Temp Pulse Resp B/P (MAP) Pulse Ox O2 Delivery O2 Flow Rate FiO2 08/11/17 10:25 97.8 74 14 115/66 (82) 97 Nasal Cannula 2 08/11/17 10:15 72 14 133/73 (93) 100 Nasal Cannula 2 08/11/17 10:05 97.8 70 14 133/72 (92) 100 Nasal Cannula 2 08/11/17 08:00 97.4 71 18 140/73 (95) 98 08/11/17 04:00 97.3 72 17 125/62 (83) 97 08/11/17 04:00 Room Air 08/11/17 03:45 69 08/11/17 00:00 98.2 74 16 114/64 (81) 96 08/11/17 00:00 Room Air 08/10/17 23:46 73 08/10/17 21:20 Room Air 08/10/17 20:00 97.2 74 16 140/66 (90) 99 08/10/17 19:52 73 08/10/17 16:00 77 08/10/17 16:00 97.1 74 18 139/67 (91) 99 08/10/17 12:00 97.3 76 18 133/70 (91) 99 08/10/17 12:00 76 I/O 08/10/17 08/10/17 08/10/17 08/11/17 08/11/17 08/11/17 07:00 15:00 23:00 07:00 15:00 23:00 Intake Total 260 ml 50 ml 980 ml 770 ml 300 ml Output Total 5 ml Balance 260 ml 50 ml 980 ml 770 ml 295 ml Intake Oral 210 ml 480 ml 720 ml IV Total 50 ml 50 ml 500 ml 50 ml Other 300 ml Estimated Blood Loss 5 ml # Voids 4 4 2 Result Diagram: 08/10/1751308/10/17513 Objective Remarks GENERAL: This is a well-nourished, well-developed patient, in no apparent distress. SKIN: Status post right fifth amputation. Dressing appear intact. CARDIOVASCULAR: Regular rate and rhythm without murmurs, gallops, or rubs. RESPIRATORY: Clear to auscultation. Breath sounds equal bilaterally. No wheezes , rales, or rhonchi. GASTROINTESTINAL: Abdomen soft, non-tender, nondistended. No hepato-splenomegaly , or palpable masses. No guarding. MUSCULOSKELETAL: Status post right fifth toe amputation. Postoperative dressing appear clean. NEUROLOGICAL: Awake and alert. Normal speech. A/P Problem List: (1) Gangrene of toe of right foot ICD Code: I96 - Gangrene, not elsewhere classified (2) Cellulitis of fifth toe of right foot ICD Code: L03.031 - Cellulitis of right toe Status: Acute (3) Diabetes mellitus type 2 with atherosclerosis of arteries of extremities ICD Code: E11.59 - Type 2 diabetes mellitus with other circulatory complications; I70.209 - Unspecified atherosclerosis of [place] arteries of extremities, unspecified extremity Status: Acute (4) CHF (congestive heart failure) ICD Code: I50.9 - Heart failure, unspecified (5) Hyperkalemia ICD Code: E87.5 - Hyperkalemia Assessment and Plan 82-year-old male with ascending right toe infection, apparent gangrene. Right fifth toe gangrene with surrounding cellulitis:. - Podiatry and Vascular surgery following. Status post amputation. -Wound culture grew MSSA. - Awaiting further input from podiatry regarding intraoperative findings. We' ll de-escalate antibiotics to Ancef. Discontinue Vanc and Zosyn. Type 2 diabetes: - Sliding scale insulin with Accu-Cheks - Diabetic diet. Systolic congestive heart failure/coronary artery disease status post CABG: - Stable from a cardiac standpoint. - Continue all cardiac medications. Hyperkalemia:On presentation Mild. Patient has been on potassium supplement at home. - Resolved. GI prophylaxis: Stool softener PRN constipation. DVT PPx: Heparin Discharge Planning DC when cleared by Podiatry. Anticipate DC home Irving Hollingsworth MD Aug 11, 2017 11:07
[2017-08-11] MEDS: ACETAMINOPHEN/HYDROcodone 325 MG/5 MG TAB PO PRN ×3 (11:59→21:05)
[2017-08-11] MEDS ORDERED: PROPOFOL 200 MG/20 ML AMP IV ONE (12:00)
[2017-08-11] MEDS ORDERED: LIDOCAINE HCL 1% PF 5 ML SYRINGE OTHER ONE (12:00)
[2017-08-11] MEDS ORDERED: ONDANSETRON HCL 4 MG/2 ML VIAL IV ONE (12:00)
[2017-08-11] MEDS ORDERED: PHENYLEPH/NS 1000 MCG/10 ML SYR IV ONE (12:00)
--- NOTE | 2017-08-11 12:56 | PD.VS.PN ---
Subjective Subjective/Hospital Course Pt s/p R 5th toe amputation by podiatry notes toe is "throbbing" Objective Vitals/I&O Date Time Temp Pulse Resp B/P (MAP) Pulse Ox O2 Delivery O2 Flow Rate FiO2 08/11/17 10:25 97.8 74 14 115/66 (82) 97 Nasal Cannula 2 08/11/17 10:15 72 14 133/73 (93) 100 Nasal Cannula 2 08/11/17 10:05 97.8 70 14 133/72 (92) 100 Nasal Cannula 2 08/11/17 08:00 97.4 71 18 140/73 (95) 98 08/11/17 04:00 97.3 72 17 125/62 (83) 97 08/11/17 04:00 Room Air 08/11/17 03:45 69 08/11/17 00:00 98.2 74 16 114/64 (81) 96 08/11/17 00:00 Room Air 08/10/17 23:46 73 08/10/17 21:20 Room Air 08/10/17 20:00 97.2 74 16 140/66 (90) 99 08/10/17 19:52 73 08/10/17 16:00 77 08/10/17 16:00 97.1 74 18 139/67 (91) 99 08/11/17 08/11/17 08/11/17 07:00 15:00 23:00 Intake Total 770 ml 300 ml Output Total 5 ml Balance 770 ml 295 ml Physical Exam R foot dressed with ANDREY wrap from OR Laboratory Date/Time Source Procedure Growth Status 08/08/17 13:27 Blood Peripheral Aerobic Blood Culture - Preliminary NO GROWTH IN 3 DAYS Resulted 08/08/17 13:27 Blood Peripheral Anaerobic Blood Culture - Preliminary NO GROWTH IN 3 DAYS Resulted 08/08/17 14:15 Wound Toe Gram Stain - Final Complete 08/08/17 14:15 Wound Culture - Final Staphylococcus Aureus Complete Assessment and Plan Plan PAD and R 5th toe gangrene, s/p R AT/PT 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 If toe amputation healing lags, will repeat angiogram pt ok with plan d/c anytime form my standpoint. Laureano Swift MD FACS RPVI hydroelectric operator [facility] - Heart and Vascular Surgery at [facility] [phone] Laureano Swift MD Aug 11, 2017 12:56
--- NOTE | 2017-08-11 13:57 | RADRPT ---
EXAM DATE/TIME: 08/11/2017 10:05 [place] COMPARISON: FOOT RIGHT COMPLETE ([id number]), August 08, 2017, 14:37. INDICATIONS : Post right foot 5th toe amputation MEDICAL HISTORY : Hypertension. Diabetes mellitus type II. SURGICAL HISTORY : None. ENCOUNTER: Initial ACUITY: 1 day PAIN SCORE: 0/10 LOCATION: Right Foot 5th toe FINDINGS: Three view examination of the right foot demonstrates the fifth toe has been amputated. There is exte nsive atherosclerotic disease. Marked osteoarthritis of the first MTP joint. Alignment is excellent. There is no evidence of acute fracture.. The calcaneus is intact. Bony mineralization is normal. CONCLUSION: The fifth toes was surgically resected. Underlying bones are normal. Dejon Sinha MD on August 11, 2017 at 13:55 Board Certified Radiologist. This report was verified electronically.
--- NOTE | 2017-08-11 15:32 | EKG ---
Date Performed: 08/10/2017 Time Performed: 23:29:46 PTAGE: 82 years EKG: Supraventricular rhythm, baseline artifact significantly limits accuracy of interpretation Differential would include junctional rhythm versus ectopic atrial rhythm PVCs Extensive ST-T changes may be due to myocardial ischemia Abnormal ECG PREVIOUS TRACING : 05/28/2017 14.15.04 DOCTOR: Antonio Lin Interpretating Date/Time 08/11/2017 15:31:45
[2017-08-11] MEDS: ATORVASTATIN 40 MG TAB PO SCH (21:05)
[2017-08-12] VITALS (9 sets, daily range): BP systolic 111–137; BP diastolic 60–70; PULSE 59–82; RESP 18–20; TEMP 97.4–97.9; O2SAT 96–100
[2017-08-12] MEDS: ACETAMINOPHEN/HYDROcodone 325 MG/5 MG TAB PO PRN ×2 (01:22→08:59)
[2017-08-12] MEDS: HEPARIN SODIUM - SQ 10,000 UNITS/ML VIAL SQ SCH ×2 (04:50→17:38)
[2017-08-12] MEDS: SODIUM CHLORIDE 0.9% FLUSH 10 ML FLUSH IV FLUSH SCH ×2 (08:57→21:12)
[2017-08-12] MEDS: ISOSORBIDE MONONITRATE 60 MG CR TAB (IMDUR) PO SCH (08:58)
[2017-08-12] MEDS: ASPIRIN EC 81 MG TABEC PO SCH (08:58)
[2017-08-12] MEDS: RANOLAZINE 500 MG EXTENDED RELEASE TAB PO SCH ×2 (08:59→21:10)
[2017-08-12] MEDS: MULTIVITAMIN TAB PO SCH (08:59)
[2017-08-12] MEDS: ASCORBIC ACID 500 MG TAB PO SCH (09:00)
[2017-08-12] MEDS: FERROUS SULFATE 325 MG (65 MG ELEMENTAL IRON) TAB PO SCH ×3 (09:00→17:38)
[2017-08-12] MEDS: FAMOTIDINE 20 MG TAB PO SCH ×2 (09:00→21:11)
[2017-08-12] MEDS: INSULIN ASPART SUPPLEMENTAL SCALE SQ SCH ×4 (09:03→21:52)
[2017-08-12] MEDS: METOPROLOL SUCCINATE 50 MG EXTENDED RELEASE TAB PO SCH (09:03)
--- NOTE | 2017-08-12 11:48 | MP ---
cc: BECCA CRUZ DATE OF SURGERY 08/11/[address] Becca Cruz. GROUP ACCOUNT DIRECTOR Staff provided rehab care assistant. PREOPERATIVE DIAGNOSIS Right foot fifth digit dry gangrene. POSTOPERATIVE DIAGNOSIS Right foot fifth digit dry gangrene. PROCEDURE PERFORMED Right foot fifth digit amputation. SPECIMEN Pathology sent right fifth digit. ANESTHESIA General. HEMOSTASIS Anatomical dissection. ESTIMATED BLOOD LOSS Less than 10 mL. MATERIALS USED 3-0 Prolene. COMPLICATIONS None. INJECTABLES None. 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 He has been seen by a previous powder worker who stated that it would likely fall off on its own; however, it has become infected and somewhat uncomfortable since that point. The decision was made to amputate the toe now. Vascular was involved in the decision and will continue to monitor him as needed as an outpatient. PROCEDURE Under mild sedation the patient was brought into the operating room, placed on the operating table in the supine position. Following IV sedation a pneumatic ankle tourniquet was placed around the right ankle. This was then scrubbed, prepped and draped in the usual aseptic manner. Attention was directed to the right fifth digit where he had full-thickness dry gangrene circumferentially to the middle aspect of the proximal phalanx. Two semi-elliptical incisions were created, one medial and one lateral to the toe. They were deepened through skin and subcutaneous tissue with care being taken to identify and retract any vital neurovascular structures. They were deepened to the level of the MPJ and the toe was disarticulated and removed in toto and sent to pathology for further evaluation. The area was flushed with copious amounts of sterile saline. The tendons were cut away from the incision site. The metatarsal head appeared to be healthy but with some arthritis. The area was again flushed with copious amounts of sterile saline. The skin was closed with minimal tension using 3-0 Prolene. A sterile dressing of Adaptic, 4x4s, cast padding and an Hayden bandage was applied. The patient tolerated the procedure and the anesthesia well. He will recover in the PACU for a period time before being discharged back to his room with written and oral postoperative instructions. Becca WEBER/CARLOS /10:01 AM /11:43 AM MTDD
--- NOTE | 2017-08-12 13:21 | HHI.PR ---
Subjective Remarks Patient reports is feeling okay. Eager to go home. Pain is controlled. Afebrile. Objective Vitals Vital Signs Date Time Temp Pulse Resp B/P (MAP) Pulse Ox O2 Delivery O2 Flow Rate FiO2 08/12/17 12:05 97.4 76 18 124/61 (82) 99 08/12/17 08:05 97.5 75 18 137/63 (87) 98 08/12/17 04:00 Room Air 08/12/17 04:00 97.6 82 18 111/60 (77) 96 08/12/17 03:54 75 08/12/17 00:00 Room Air 08/12/17 00:00 97.9 75 20 128/63 (84) 98 08/11/17 23:59 75 08/11/17 22:28 17 08/11/17 21:05 Room Air 08/11/17 20:28 68 08/11/17 20:00 96.8 75 20 125/64 (84) 99 08/11/17 16:00 97.4 70 18 147/81 (103) 99 08/11/17 16:00 64 I/O 08/11/17 08/11/17 08/11/17 08/12/17 08/12/17 08/12/17 07:00 15:00 23:00 07:00 15:00 23:00 Intake Total 770 ml 600 ml 590 ml 200 ml Output Total 5 ml 550 ml Balance 770 ml 595 ml 590 ml -350 ml Intake Oral 720 ml 240 ml 200 ml IV Total 50 ml 300 ml 350 ml Other 300 ml Output Urine Total 550 ml Estimated Blood Loss 5 ml # Voids 2 4 # Bowel Movements 1 Result Diagram: 08/10/17 0514 08/10/17 0514 Objective Remarks GENERAL: This is a well-nourished, well-developed patient, in no apparent distress. SKIN: Status post right fifth amputation. Dressing appear intact. CARDIOVASCULAR: Regular rate and rhythm without murmurs, gallops, or rubs. RESPIRATORY: Clear to auscultation. Breath sounds equal bilaterally. No wheezes , rales, or rhonchi. GASTROINTESTINAL: Abdomen soft, non-tender, nondistended. No hepato-splenomegaly , or palpable masses. No guarding. MUSCULOSKELETAL: Status post right fifth toe amputation. Postoperative dressing appear clean. NEUROLOGICAL: Awake and alert. Normal speech. A/P Problem List: (1) Gangrene of toe of right foot ICD Code: I96 - Gangrene, not elsewhere classified (2) Cellulitis of fifth toe of right foot ICD Code: L03.031 - Cellulitis of right toe Status: Acute (3) Diabetes mellitus type 2 with atherosclerosis of arteries of extremities ICD Code: E11.59 - Type 2 diabetes mellitus with other circulatory complications; I70.209 - Unspecified atherosclerosis of [place] arteries of extremities, unspecified extremity Status: Acute (4) CHF (congestive heart failure) ICD Code: I50.9 - Heart failure, unspecified (5) Hyperkalemia ICD Code: E87.5 - Hyperkalemia Assessment and Plan 82-year-old male with ascending right toe infection, apparent gangrene. Right fifth toe gangrene with surrounding cellulitis:. - Podiatry and Vascular surgery following. Status post amputation. -Wound culture grew MSSA. Status post vancomycin and Zosyn. - Continue Ancef. - Discussed with podiatry, Dr. Mosley. They will re-evaluate the wound tomorrow and decide on further treatment or discharge. Type 2 diabetes: - Sliding scale insulin with Accu-Cheks - Diabetic diet. Systolic congestive heart failure/coronary artery disease status post CABG: - Stable from a cardiac standpoint. - Continue all cardiac medications. Hyperkalemia:On presentation Mild. Patient has been on potassium supplement at home. - Resolved. GI prophylaxis: Stool softener PRN constipation. DVT PPx: Heparin Discharge Planning DC when cleared by Podiatry. Anticipate DC home Irving Hollingsworth MD Aug 12, 2017 13:21
[2017-08-12] MEDS: ATORVASTATIN 40 MG TAB PO SCH (21:11)
[2017-08-13] VITALS (7 sets, daily range): BP systolic 103–134; BP diastolic 57–63; PULSE 41–77; RESP 18–20; TEMP 97.7–98.4; O2SAT 98–99
[2017-08-13] MEDS: HEPARIN SODIUM - SQ 10,000 UNITS/ML VIAL SQ SCH (06:22)
--- NOTE | 2017-08-13 08:39 | HHI.PR ---
Subjective Remarks awake and alert, no fever or chills no foot pain Objective Vitals Vital Signs Date Time Temp Pulse Resp B/P (MAP) Pulse Ox O2 Delivery O2 Flow Rate FiO2 08/13/17 08:00 98.0 71 20 134/63 (86) 98 08/13/17 04:00 98.1 71 18 118/59 (78) 98 08/13/17 03:47 74 08/13/17 00:15 74 08/13/17 00:00 Room Air 08/13/17 00:00 98.4 77 18 103/60 (74) 98 08/12/17 20:25 59 08/12/17 20:00 Room Air 08/12/17 20:00 97.5 70 20 134/70 (91) 100 08/12/17 16:18 97.4 74 18 132/67 (88) 100 08/12/17 16:00 Room Air 08/12/17 16:00 77 08/12/17 12:05 97.4 76 18 124/61 (82) 99 08/12/17 12:00 Room Air I/O 08/12/17 08/12/17 08/12/17 08/13/17 08/13/17 08/13/17 07:00 15:00 23:00 07:00 15:00 23:00 Intake Total 200 ml 720 ml 720 ml Output Total 550 ml 400 ml 300 ml Balance -350 ml 320 ml 420 ml Intake Oral 200 ml 720 ml 720 ml Output Urine Total 550 ml 400 ml 300 ml # Voids 1 3 # Bowel Movements 1 0 0 Result Diagram: 08/10/17 0514 08/10/17 0514 Imaging Last Impressions Foot X-Ray 08/11/17 0000 Signed Impressions: Service Date/Time: Friday, August 11, 2017 10:05 - CONCLUSION: The fifth toes was surgically resected. Underlying bones are normal. Dejon Sinha MD Objective Remarks awake and alert, oriented x 3 anicteric lungs- clear regular rhythm abdomen soft, nontender right foot- - S/P right 5th toe amputation- dry, sutures in place- mild surrounding erythema Procedures 08/12- right 5th toe amputation A/P Problem List: (1) Gangrene of toe of right foot ICD Code: I96 - Gangrene, not elsewhere classified (2) Cellulitis of fifth toe of right foot ICD Code: L03.031 - Cellulitis of right toe Status: Acute (3) Diabetes mellitus type 2 with atherosclerosis of arteries of extremities ICD Code: E11.59 - Type 2 diabetes mellitus with other circulatory complications; I70.209 - Unspecified atherosclerosis of [place] arteries of extremities, unspecified extremity Status: Acute (4) CHF (congestive heart failure) ICD Code: I50.9 - Heart failure, unspecified (5) Hyperkalemia ICD Code: E87.5 - Hyperkalemia Assessment and Plan 82-year-old male with ascending right toe infection, apparent gangrene. Right fifth toe gangrene with surrounding cellulitis:.S/P 5th toe amputation - Podiatry and Vascular surgery following. Status post amputation. -Wound culture grew MSSA. - Continue Ancef.- increase to 1 gm q 8 - Dr. Mosley.ff- will re-evaluate the wound today and decide on further plan - treatment or discharge. Type 2 diabetes: - last A1C- 5.4 - elevated readings here- at home- on Lantus 20 units hs- we will start Levemer 15 units hs while here - Sliding scale insulin with Accu-Cheks - Diabetic diet. Systolic congestive heart failure/coronary artery disease status post CABG:- stable - Stable from a cardiac standpoint. - Continue all cardiac medications. Hyperkalemia:On presentation resolved - Patient has been on potassium supplement at home.- discontinued GI prophylaxis: Stool softener PRN constipation. DVT PPx: Heparin CM conuslt- for home health care arrangement resume home insulin regimen as OP Ewelina Mcgee MD Aug 13, 2017 08:39
[2017-08-13] MEDS: FAMOTIDINE 20 MG TAB PO SCH (08:41)
[2017-08-13] MEDS: MULTIVITAMIN TAB PO SCH (08:41)
[2017-08-13] MEDS: FERROUS SULFATE 325 MG (65 MG ELEMENTAL IRON) TAB PO SCH ×2 (08:41→13:03)
[2017-08-13] MEDS: ISOSORBIDE MONONITRATE 60 MG CR TAB (IMDUR) PO SCH (08:42)
[2017-08-13] MEDS: RANOLAZINE 500 MG EXTENDED RELEASE TAB PO SCH (08:42)
[2017-08-13] MEDS: ASPIRIN EC 81 MG TABEC PO SCH (08:42)
[2017-08-13] MEDS: METOPROLOL SUCCINATE 50 MG EXTENDED RELEASE TAB PO SCH (08:42)
[2017-08-13] MEDS: ASCORBIC ACID 500 MG TAB PO SCH (08:42)
[2017-08-13] MEDS: INSULIN ASPART SUPPLEMENTAL SCALE SQ SCH ×2 (08:43→12:14)
[2017-08-13] MEDS: SODIUM CHLORIDE 0.9% FLUSH 10 ML FLUSH IV FLUSH SCH (08:43)
--- NOTE | 2017-08-13 09:01 | HHI.FF ---
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 My clinical findings support the need for the requested home health care services because: Infection w/ risk of complications I certify that my clinical findings support that this patient is homebound because: Need for psychosocial assistance Ewelina Mcgee MD Aug 13, 2017 09:01
[2017-08-13 10:23] LABS: BICARBONATE 26.8 MEQ/L (21.0-32.0); CALCIUM 8.8 MG/DL (8.5-10.1); CREATININE 1.05 MG/DL (0.60-1.30)
--- NOTE | 2017-08-13 13:46 | PD.POD ---
Subjective Pain score: 3 Remarks doing well ready to go home Past Med/Surg/Social History Past Medical History HEENT: REPORTS HX OF: Cataracts Endocrine: REPORTS HX OF: Diabetes mellitus (type 2) Cardiovascular: REPORTS HX OF: Coronary artery disease, Hyperlipidemia, Hypertension, Peripheral vascular dz, Other CV history Gastrointestinal: REPORTS HX OF: GERD Cancer/Hematology: REPORTS HX OF: Skin cancer Neurologic: REPORTS HX OF: Peripheral neuropathy Past Surgical History Cardiovascular: REPORTS HX OF: Angiogram, Angioplasty, CABG surgery (x6), Coronary stent Musculoskeletal: REPORTS HX OF: Other musculoskeletal srg (transmetatarsal amputation left) Integumentary: REPORTS HX OF: Skin cancer removal Breast: DENIES HX OF: Mastectomy, bilateral, Mastectomy, left, Mastectomy, right Social History Smoking Status: Former Smoker Objective Vital Signs Vital Signs Date Time Temp Pulse Resp B/P (MAP) Pulse Ox O2 Delivery O2 Flow Rate FiO2 08/13/17 12:00 Room Air 08/13/17 12:00 97.7 60 20 127/57 (80) 99 08/13/17 10:35 41 08/13/17 08:00 98.0 71 20 134/63 (86) 98 08/13/17 08:00 Room Air 08/13/17 04:00 98.1 71 18 118/59 (78) 98 08/13/17 03:47 74 08/13/17 00:15 74 08/13/17 00:00 Room Air 08/13/17 00:00 98.4 77 18 103/60 (74) 98 08/12/17 20:25 59 08/12/17 20:00 Room Air 08/12/17 20:00 97.5 70 20 134/70 (91) 100 08/12/17 16:18 97.4 74 18 132/67 (88) 100 08/12/17 16:00 Room Air 08/12/17 16:00 77 Coded Allergies: No Known Allergies (Verified Adverse Reaction, Unknown, 08/08/17) Medications and IVs Administered Medications Medications (Trade) Dose Ordered Sig/Hilary Route PRN Reason Start Time Stop Time Status Last Admin Dose Admin Aspirin (Ecotrin Ec) 81 mg DAILY PO 08/09/17 09:00 08/13/17 08:42 Atorvastatin Calcium (Lipitor) 40 mg HS PO 08/08/17 21:00 08/12/17 21:11 Ferrous Sulfate (Ferrous Sulfate) 325 mg TID PO 08/08/17 18:00 08/13/17 13:03 Isosorbide Mononitrate (Imdur) 120 mg DAILY PO 08/09/17 09:00 08/13/17 08:42 Ascorbic Acid (Vitamin C) 500 mg DAILY PO 08/09/17 09:00 08/13/17 08:42 Metoprolol Succinate (Toprol Xl) 200 mg DAILY PO 08/09/17 09:00 08/13/17 08:42 Multivitamins (Theragran) 1 tab DAILY PO 08/09/17 09:00 08/13/17 08:41 Famotidine (Pepcid) 10 mg BID PO 08/09/17 09:00 08/13/17 08:41 Ranolazine (Ranexa) 1,000 mg BID PO 08/08/17 21:00 08/13/17 08:42 Sodium Chloride (NS Flush) 2 ml BID IV FLUSH 08/08/17 21:00 08/13/17 08:43 Acetaminophen (Tylenol) 650 mg Q4H PRN PO TEMP > 100.4, PAIN 1-5 08/08/17 16:30 08/10/17 22:06 Heparin Sodium (Porcine) (Heparin Inj) 5,000 units Q12H SQ 08/08/17 17:00 08/13/17 06:22 Insulin Aspart (NovoLOG SUPPLEMENTAL SCALE) 1 ACHS SLIDING SCALE SQ 08/08/17 21:00 08/13/17 12:14 Acetaminophen/ Hydrocodone Bitart ([place] 5-325 Mg) 1 tab Q4H PRN PO PAIN GREATER THAN 5 08/11/17 11:45 08/12/17 08:59 Laboratory Tests Test 08/13/17 06:29 Blood Urea Nitrogen 16 MG/DL Creatinine 1.05 MG/DL Random Glucose 326 MG/DL Calcium Level 8.8 MG/DL Sodium Level 137 MEQ/L Potassium Level 4.4 MEQ/L Chloride Level 104 MEQ/L Carbon Dioxide Level 26.8 MEQ/L Anion Gap 6 MEQ/L Estimat Glomerular Filtration Rate 67 ML/MIN Other Results SPECIMEN #: [id number] BLACK: 08/08/17 1415 STATUS: COMP RECD: 08/08/[address]: Argelia Espinoza PT ID: Myrtle BOX/PROVIDER ID: SOURCE: WOUND COPY TO: Pramod Neri MD [facility]: Mathieu Donovan MD CLIENT: ORDERED: WOUND CULTURE QUERIES: Method of Collection: SWAB ACT WKST: WOUNDS 08/09/17 #1 Procedure Result Verified Site GRAM STAIN Final 08/08/17-152 Test not performed WOUND CULTURE Final 08/11/17-836 HEAVY GROWTH STAPHYLOCOCCUS AUREUS HEAVY GROWTH NORMAL SKIN ERVIN NO ANAEROBES ISOLATED STA AUREUS M.I.C. RX --------- --- PENICILLIN G >8 Thomas OXACILLIN 0.5 S CEFAZOLIN <4 S CEFTRIAXONE <4 S GENTAMICIN <1 S ERYTHROMYCIN 0.5 S CLINDAMYCIN 0.5 S DAPTOMYCIN 0.5 S VANCOMYCIN 2 S TETRACYCLINE <1 S CHLORAMPHENICOL <8 S TRIMETH/SULFA <0.5/9.5 S LEVOFLOXACIN <0.5 S LINEZOLID 4 S RIFAMPIN <1 S CONTINUED ON NEXT PAGE RUN DATE: 08/11/17 [facility] LAB LIVE PAGE 2 RUN TIME: [id number] [address] DOCTOR REPORT PATIENT Patient: ALPHONSO ENRIQUEZ #[id number] (Continued) Specimen: [id number] Collected: 08/08/17 Received: 08/08/17 (Continued) Procedure Result Verified Site WOUND CULTURE Preliminary (changed) 08/10/17-909 HEAVY GROWTH STAPHYLOCOCCUS AUREUS - SUSCEPTIBILITY TO FOLLOW HEAVY GROWTH NORMAL SKIN ERVIN NO ANAEROBES ISOLATED WOUND CULTURE Preliminary (changed) 08/09/17-1202 HEAVY GROWTH STAPHYLOCOCCUS AUREUS - SUSCEPTIBILITY TO FOLLOW HEAVY GROWTH NORMAL SKIN ERVIN WOUND CULTURE Preliminary (changed) 08/09/17-1139 HEAVY GROWTH STAPHYLOCOCCUS AUREUS - SUSCEPTIBILITY TO FOLLOW END OF REPORT Physical Exam Remarks right foot with incision edges well coapted minimal redness no drainage pulses are very hard to palpate sensation decreased to light touch Assessment & Plan A/P SP rt 5th digit amp, ulcer infection. Ok to DC home FU out pt with Dr Becca Borrego, ordered post op Anatoly Levi DPM Aug 13, 2017 13:46
[2017-08-13] MEDS ORDERED: CEPH500C PO (15:01)
[2017-08-13] MEDS ORDERED: NORC5TAB PO (15:03)
--- NOTE | 2017-08-13 15:07 | HHI.DS ---
Discharge Summary Admission Date Aug 08, 2017 at 16:22 Discharge Date: Aug 13, 2017 Admitting Diagnosis Toe cellulitis/sepsis (1) Gangrene of toe of right foot ICD Code: I96 - Gangrene, not elsewhere classified Diagnosis: Principal (2) Cellulitis of fifth toe of right foot ICD Code: L03.031 - Cellulitis of right toe Diagnosis: Principal Status: Acute (3) Diabetes mellitus type 2 with atherosclerosis of arteries of extremities ICD Code: E11.59 - Type 2 diabetes mellitus with other circulatory complications; I70.209 - Unspecified atherosclerosis of [place] arteries of extremities, unspecified extremity Diagnosis: Secondary Status: Acute (4) CHF (congestive heart failure) ICD Code: I50.9 - Heart failure, unspecified Diagnosis: Secondary (5) Hyperkalemia ICD Code: E87.5 - Hyperkalemia Diagnosis: Secondary Procedures 08/12- right 5th toe amputation Brief History - From Admission 82-year-old male with a medical history significant for diabetes, hypertension, coronary artery disease status post CABG, atrial fibrillation sent to the emergency room 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 Patient reports he has been having issue with the right fifth toe since December of last year. He has been following with Dr. Carrillo who has been trying to solve age to toe. He underwent revascularization procedure a few weeks ago. He reports over the past couple of weeks the tip of the toe continues to turn black and it has been bleeding and at times has a foul-smelling purulent discharge. There is no surrounding erythema. He denies fevers or chills at home. CBC/BMP: 08/10/17 0514 08/13/17 0629 Significant Findings Laboratory Tests Test 08/13/17 06:29 Random Glucose 326 MG/DL (74-106) Estimat Glomerular Filtration Rate 67 ML/MIN (>89) Imaging Last Impressions Foot X-Ray 08/11/17 0000 Signed Impressions: Service Date/Time: Friday, August 11, 2017 10:05 - CONCLUSION: The fifth toes was surgically resected. Underlying bones are normal. Dejon Sinha MD PE at Discharge awake and alert, oriented x 3 anicteric lungs- clear regular rhythm abdomen soft, nontender right foot- - S/P right 5th toe amputation- dry, sutures in place- mild surrounding erythema Pt update on day of discharge afebrile pain controlled reviewed A1C and blood sugars with him and his home regimen Hospital Course 82-year-old male with ascending right toe infection, apparent gangrene. Right fifth toe gangrene with surrounding cellulitis:.S/P 5th toe amputation - Podiatry and Vascular surgery following. Status post amputation. -Wound culture grew MSSA. - Continue Ancef.- increase to 1 gm q 8 - Dr. Mosley.ff- will re-evaluate the wound today and decide on further plan - treatment or discharge. Type 2 diabetes: - last A1C- 5.4 - elevated readings here- at home- on Lantus 20 units hs- we will start Levemer 15 units hs while here - Sliding scale insulin with Accu-Cheks - Diabetic diet. Systolic congestive heart failure/coronary artery disease status post CABG:- stable - Stable from a cardiac standpoint. - Continue all cardiac medications. Hyperkalemia:On presentation resolved - Patient has been on potassium supplement at home.- discontinued GI prophylaxis: Stool softener PRN constipation. DVT PPx: Heparin CM conuslt- for home health care arrangement resume home insulin regimen as OP Pt Condition on Discharge: Stable Discharge Disposition: Disch w/ Home Health Serv Discharge Time: <= 30 minutes Discharge Instructions DIET: Follow Instructions for: Heart Healthy Diet, Diabetic Diet Speech Therapy-Diet Recommends: Regular Activities you can perform: Weight Bearing as Nikole Follow up Referrals: PCP Follow-up - 3-5 Days with [facility]-PCP Podiatry - 1 Week @ [facility] with Becca Borrego DPM Vascular Surgery @ Vascular Surgery with Laureano Swift MD New Medications: Cephalexin (Cephalexin) 500 Mg Cap 500 MG PO Q6H for Infection for 7 Days, #28 CAP 0 Refills Hydrocodone-Acetaminophen ([place]) 5 Mg-325 Mg Tab 1 TAB PO Q4H PRN for PAIN, #40 TAB 0 Refills Continued Medications: Ascorbic Acid (Vitamin C) 250 Mg Chew 500 MG CHEW DAILY for Nutritional Supplement, #30 TAB [address] (Aspirin 81) 81 Mg Tabdr 81 MG PO DAILY, TAB 0 Refills Atorvastatin (Atorvastatin) 40 Mg Tab 40 MG PO HS for Cholesterol Management, #30 TAB 0 Refills Clopidogrel (Plavix) 75 Mg Tab 75 MG PO DAILY for Blood Clot Prevention, #30 TAB 0 Refills Docusate Sodium (Colace) 100 Mg Capsule 1 TAB PO BID, #20 Ferrous Sulfate Dried (Gnp Iron) 325 Mg (65 Mg Iron) Tab 1 TAB PO TID Isosorbide Mononitrate ER (Isosorbide Mononitrate ER) 120 Mg Emeka 120 MG PO DAILY for Prevent Chest Pain, #30 TAB 0 Refills Losartan (Losartan) 25 Mg Tab 25 MG PO DAILY for Blood Pressure Management, #30 TAB 0 Refills Metoprolol Succinate ER 24 HR (Metoprolol Succinate ER 24 HR) 200 Mg Tab 200 MG PO DAILY, #30 TAB 0 Refills Multiple Vitamin (Multi Vitamin Daily) 1 Tab Tab 1 TAB PO DAILY Potassium Chloride ER (Potassium Chloride ER) 20 Meq Tab 20 MEQ PO BID for Electrolyte Replacement, #60 TAB 0 Refills Ranitidine (Ranitidine) 150 Mg Tab 150 MG PO DAILY for Heartburn Management, #30 TAB 0 Refills Ranolazine ER 12 HR (Ranexa ER 12 HR) 1,000 Mg Tab 1000 MG PO BID for Chest Pain, #60 TAB 0 Refills Spironolactone (Spironolactone) 25 Mg Tab 25 MG PO DAILY, #30 TAB 0 Refills Torsemide (Torsemide) 20 Mg Tab 20 MG PO DAILY, #30 TAB 0 Refills Discontinued Medications: Tramadol ER 24 HR (Tramadol ER 24 HR) 100 Mg Emeka 100 MG PO DAILY for Pain Management, #30 TAB 0 Refills Ewelina Mcgee MD Aug 13, 2017 15:06
[2017-08-13] MEDS ORDERED: INSULIN DETEMIR 100 UNITS/ML VIAL SQ SCH (21:00)
== END 2017-08-13 16:40 | disposition home health service (06) | DRG 256 ==
LOC: NEPC 12:39 → NEDA 16:22 → N04A 19:20
PROVIDERS: ADMIT Internal Medicine; ATTEND Internal Medicine
PROC: 0Y6X0Z0 Detachment at Right 5th Toe, Complete, Open Approach (ICD-10-PCS; principal; 2017-08-11 09:27)
DX: E11.52 Type 2 diabetes mellitus with diabetic peripheral angiopathy with gangrene (principal); Z79.84 Long term (current) use of oral hypoglycemic drugs; Z79.4 Long term (current) use of insulin; I11.0 Hypertensive heart disease with heart failure; I50.20 Unspecified systolic (congestive) heart failure; E87.5 Hyperkalemia; I70.209 Unspecified atherosclerosis of native arteries of extremities, unspecified extremity; L03.031 Cellulitis of right toe; A49.01 Methicillin susceptible Staphylococcus aureus infection, unspecified site; I25.10 Atherosclerotic heart disease of native coronary artery without angina pectoris; Z95.1 Presence of aortocoronary bypass graft; I48.91 Unspecified atrial fibrillation; Z79.02 Long term (current) use of antithrombotics/antiplatelets; Z79.82 Long term (current) use of aspirin; Z87.891 Personal history of nicotine dependence
CPT/HCPCS: 73630; 80048; 80053; 82947; 82948; 83605; 85025; 85027; 85610; 85730; 86403; 86850; 86900; 86901; 87040; 87070; 87147; 87186; 88305; 88311; 93005; 93922; 96365; 96375; J0690; J1644; J1815; J2370; J2405; J2543; J3010; J3370; J7030; J7050; L3260

== ENCOUNTER 2018-04-24 06:29 | Inpatient (IN) ==
[2018-04-24] MEDS ORDERED: Sodium Chlor 0.9% Inj 500 ML IV.SIG ONE (06:47)
--- NOTE | 2018-04-24 06:52 | ED ---
HPI General Chief Complaint: Chest Pain Stated Complaint: chest pain Time Seen by Provider: 04/24/18 06:32 Source: patient Mode of arrival: EMS Limitations: no limitations History of Present Illness HPI narrative: Patient's farmer vegetable is Dr. Flores Primary care physician was marked From [place] has previous history of diabetes stent cardiac, CABG, Patient woke up at 2 AM with 10 out of 10 chest pain substernal that was not relieved with his own home nitro x3. Finally called [facility] who found him to be in atrial flutter A. fib at about 150 bpm, they also provided her own nitro which did not provide any relief. Provided 500 cc of fluid no relief, finally gave 20 mg of Cardizem which controlled the rate but still continued to be in A. fib. By the time the patient arrived at [facility] [place] it was essentially chest pain- free MD complaint: Reports palpitations Onset (ago): hour(s) (5) Duration: constant and now resolved Severity: severe Context: Reports occurred during rest Arrhythmia history: Reports atrial fibrillation Associated symptoms: Reports chest pain Treatments prior to arrival: Reports calcium channel brenda Related Data Home Medications Medication Instructions Recorded Confirmed aspirin 81 mg PO DAILY 04/24/18 04/24/18 atorvastatin 40 mg PO DAILY 04/24/18 04/24/18 insulin glargine [Lantus U-100 100 unit SUBCUT DAILY 04/24/18 04/24/18 Insulin] isosorbide mononitrate 120 mg PO QAM 04/24/18 04/24/18 metformin [Glucophage] 1,000 mg PO BID 04/24/18 04/24/18 metoprolol succinate [Toprol XL] 200 mg PO DAILY 04/24/18 04/24/18 ranitidine HCl 150 mg PO DAILY 04/24/18 04/24/18 ranolazine [Ranexa] 1,000 mg PO BID 04/24/18 04/24/18 rivaroxaban [Xarelto] 25 mg PO DAILY 04/24/18 04/24/18 solifenacin [Vesicare] 5 mg PO DAILY 04/24/18 04/24/18 Allergies Allergy/AdvReac Type Severity Reaction Status Date / Time No Known Allergies AdvReac Unknown Uncoded 08/08/17 14:07 Review of Systems ROS: all other systems reviewed are negative PMFSH History History Provided By: Patient Medical History Medical History Afib (Acute) Diabetes (Acute) Surgical History Surgical History H/O heart artery stent (Acute) S/P CABG (coronary artery bypass graft) (Acute) Social History Social History Substance History: No History of Abuse Second Hand Smoke Exposure: No Smoking Status: Never smoker How Often Do You Have a Drink Containing Alcohol: Never Recent Travel in [facility] within the Last 8 Weeks: No Recent Out of Country Travel within the Last 8 Weeks: No Exam Narrative Exam Narrative: GENERAL: elderly male in no acute distress SKIN: Warm and dry. HEAD: Atraumatic. Normocephalic. EYES: Pupils equal and round. No scleral icterus. No injection or drainage. ENT: No nasal bleeding or discharge. Mucous membranes pink and moist. NECK: Trachea midline. No JVD. CARDIOVASCULAR: Non-tachycardic, irregularly irregular rhythm.no rubs or gallops RESPIRATORY: No accessory muscle use. Clear to auscultation. Breath sounds equal bilaterally. GASTROINTESTINAL: Abdomen soft, non-tender, nondistended. No rebound or guarding MUSCULOSKELETAL: Extremities without clubbing, cyanosis, or edema. No obvious deformities. NEUROLOGICAL: Awake and alert. No obvious cranial nerve deficits. Motor grossly within normal limits. Five out of 5 muscle strength in the arms and legs. Normal speech. PSYCHIATRIC: Appropriate mood and affect; insight and judgment normal. Course Initial Documented Vital Signs Pulse Rate 78 04/24/18 06:49 Respiratory Rate 20 04/24/18 06:49 Blood Pressure 110/70 04/24/18 06:49 Pulse Oximetry 97 04/24/18 06:49 Last Documented Vital Signs Pulse Rate 76 04/24/18 08:00 Respiratory Rate 16 04/24/18 08:00 Blood Pressure 119/67 04/24/18 08:00 Pulse Oximetry 96 04/24/18 08:00 Sign Out Sign Out Data: Patient Sign Out occurred on 04/24/18 at 07:00. Patient's care was discussed, and care was transferred from Vaughn Burk to Johnie Askew MD. Sign Out Comment: c/o cp at 0200, ems found him on afib/aflutter , cp resolved after cardizem. please reeval after labs Last updated by Vaughn Burk at 04/24/18 06:56 Post-Handoff Eval: The patient is a 83-year-old male who is signed out by Dr. Burk at 7 AM with laboratory evaluation a chest x-ray pending. The patient was awakened this morning with substernal chest pain, took nitroglycerin at home that did not alleviate his symptoms. The patient was administered nitro and diltiazem intravenously by EMS for atrial flutter with RVR prior to arrival. The patient had a rate of 150, appeared to be atrial flutter 2-1 block, the diltiazem brought the patient's heart rate down into the 80s. The patient's symptoms did improve. Chest x-ray did reveal cardiomegaly and bilateral pulmonary edema. The patient's troponin was elevated 0.34. The patient's BNP is greater than 1200, consistent with acute CHF, probably secondary to the atrial flutter with RVR. The patient also had an elevated troponin, possibly secondary to dysrhythmia. The patient is followed by his farmer vegetable, Dr. Ji. The patient is on Xarelto, INR was 2.0, therefore, no Lovenox/heparin indicated. The patient will be admitted to the on-call medical service for serial troponins , cardiac telemetry monitoring, and possible evaluation by his farmer vegetable. The patient was reevaluated at 8:15 AM, his symptoms have significantly improved. The patient's glucose was noted to be 400, the patient is a insulin- dependent diabetic, therefore, was administered insulin aspart 8 units subcutaneously. Accu-Chek will be obtained 1 hour after administration of insulin. I discussed the patient with Dr. Saunders who agrees with admission. Medical Decision Making MDM Narrative Medical Screen Exam Complete: Yes Emergency Medical Condition: Yes Lab Data Result diagrams: 04/24/18 06:50 04/24/18 06:50 Lab Results 04/24/18 04/24/18 04/24/18 Range/Units 06:50 06:50 06:50 WBC 8.8 (4.0-11.0) th/mm3 RBC 2.63 L (4.50-5.90) mil/mm3 Hgb 9.4 L (13.0-17.0) gm/dL Hct 27.8 L (39.0-51.0) % MCV 105.5 H (80.0-100.0) fL MCH 35.5 H (27.0-34.0) pg MCHC 33.7 (32.0-36.0) % RDW 17.7 H (11.6-17.2) % Plt Count 174 (150-450) th/mm3 MPV 9.8 (7.0-11.0) fL Neut % (Auto) 87.9 H (16.0-70.0) % Lymph % (Auto) 8.6 L (9.0-44.0) % [place] % (Auto) 3.0 (0.0-8.0) % Eos % (Auto) 0.2 (0.0-4.0) % Baso % (Auto) 0.3 (0.0-2.0) % Neut # (Auto) 7.8 H (1.8-7.7) th/mm3 Lymph # (Auto) 0.8 L (1.0-4.8) th/mm3 [place] # (Auto) 0.3 (0.0-0.9) th/mm3 Eos # (Auto) 0.0 (0.0-0.4) th/mm3 Baso # (Auto) 0.0 (0.0-0.2) th/mm3 WBC Differential . Differential Comment Auto diff final PT 19.9 H (9.8-11.6) sec INR 2.0 Ratio APTT 33.8 H (24.3-30.1) sec Sodium 139 (136-145) meq/L Potassium 4.5 (3.5-5.1) meq/L Chloride 104 (98-107) meq/L Carbon Dioxide 21.6 (21.0-32.0) meq/L Anion Gap 13 (5-15) meq/L BUN 24 H (7-18) mg/dL Creatinine 1.13 (0.60-1.30) mg/dL Estimated GFR 62 L (>89) mL/min Random Glucose 403 H (74-106) mg/dL Calcium 8.7 (8.5-10.1) mg/dL Total Bilirubin 1.0 (0.2-1.0) mg/dL AST 24 (15-37) U/L ALT 16 (12-78) U/L Alkaline Phosphatase 77 (45-117) U/L Total Creatine Kinase 77 (39-308) U/L Troponin I 0.48 H (0.02-0.05) ng/mL B-Natriuretic Peptide (0-100) pg/mL Total Protein 6.5 (6.4-8.2) g/dL Albumin 2.7 L (3.4-5.0) g/dL Lipase 36 L (73-393) U/L 04/24/18 Range/Units 06:50 WBC (4.0-11.0) th/mm3 RBC (4.50-5.90) mil/mm3 Hgb (13.0-17.0) gm/dL Hct (39.0-51.0) % MCV (80.0-100.0) fL MCH (27.0-34.0) pg MCHC (32.0-36.0) % RDW (11.6-17.2) % Plt Count (150-450) th/mm3 MPV (7.0-11.0) fL Neut % (Auto) (16.0-70.0) % Lymph % (Auto) (9.0-44.0) % [place] % (Auto) (0.0-8.0) % Eos % (Auto) (0.0-4.0) % Baso % (Auto) (0.0-2.0) % Neut # (Auto) (1.8-7.7) th/mm3 Lymph # (Auto) (1.0-4.8) th/mm3 [place] # (Auto) (0.0-0.9) th/mm3 Eos # (Auto) (0.0-0.4) th/mm3 Baso # (Auto) (0.0-0.2) th/mm3 WBC Differential Differential Comment PT (9.8-11.6) sec INR Ratio APTT (24.3-30.1) sec Sodium (136-145) meq/L Potassium (3.5-5.1) meq/L Chloride (98-107) meq/L Carbon Dioxide (21.0-32.0) meq/L Anion Gap (5-15) meq/L BUN (7-18) mg/dL Creatinine (0.60-1.30) mg/dL Estimated GFR (>89) mL/min Random Glucose (74-106) mg/dL Calcium (8.5-10.1) mg/dL Total Bilirubin (0.2-1.0) mg/dL AST (15-37) U/L ALT (12-78) U/L Alkaline Phosphatase (45-117) U/L Total Creatine Kinase (39-308) U/L Troponin I (0.02-0.05) ng/mL B-Natriuretic Peptide 1202 H (0-100) pg/mL Total Protein (6.4-8.2) g/dL Albumin (3.4-5.0) g/dL Lipase (73-393) U/L Imaging Data Radiologist's impression: Chest X-Ray 04/24/18 06:47 CONCLUSION: Cardiomegaly with pulmonary edema. ECG Data EKG Prior to Arrival: No Attestation: I personally reviewed and interpreted this ECG as follows: Prior ECG tracings: not available for review Interpretation: Atrial fibrillation, heart rate in the 80s, PVCs monomorphic, inverted T waves in inferior lateral leads. Discharge Plan Discharge Disposition Patient Disposition: 30 Still Patient Discharge Condition Condition: Stable Discharge Details Diagnosis: Atrial flutter with rapid ventricular response, Congestive heart failure, Pulmonary edema, Elevated troponin Physicians Team ED Provider: Johnie Askew Primary Care Provider: Pramod Neri Rxs /Orders / Referrals /Forms Prescriptions: No Action atorvastatin 40 mg Tablet 40 mg PO DAILY RF: 0 insulin glargine [Lantus U-100 Insulin] 100 unit/mL Solution 100 unit SUBCUT DAILY RF: 0 metoprolol succinate [Toprol XL] 200 mg Tablet Extended Release 24 Hr 200 mg PO DAILY RF: 0 isosorbide mononitrate 120 mg Tablet Extended Release 24 Hr 120 mg PO QAM RF: 0 metformin [Glucophage] 1,000 mg Tablet 1,000 mg PO BID RF: 0 aspirin 81 mg Tablet,Chewable 81 mg PO DAILY RF: 0 ranitidine HCl 150 mg Capsule 150 mg PO DAILY RF: 0 solifenacin [Vesicare] 5 mg Tablet 5 mg PO DAILY RF: 0 ranolazine [Ranexa] 1,000 mg Tablet Extended Release 12 Hr 1,000 mg PO BID RF: 0 rivaroxaban [Xarelto] 20 mg Tablet 25 mg PO DAILY RF: 0 Discharge Instructions Patient Printed Instructions: Chest Pain (ED) Status ED Status: Admitted Patient
--- NOTE | 2018-04-24 07:12 | XR ---
EXAM DATE: 04/24/2018 6:58 AM EDT AGE/SEX: 83 years / Male INDICATIONS: Chest pain. CLINICAL DATA: This is the patient's initial encounter. Patient reports that signs and symptoms have been present for 1 day and indicates a pain score of 5/10. MEDICAL/SURGICAL HISTORY: Hypertension. Diabetes mellitus type II. CABG. COMPARISON: [facility] [place] & [place], 05/28/2017. . FINDINGS: A single AP view of the chest demonstrates cardiomegaly with bilateral pulmonary edema. Tiny bilatera l pleural effusions greater on the right. The cardiomediastinal contours are unremarkable. Osseous structures are intact. CONCLUSION: Cardiomegaly with pulmonary edema. Electronically signed by: Ayaan Roy MD 04/24/2018 7:11 AM EDT
[2018-04-24 07:23] LABS: Baso % (Auto) 0.3 % (0.0-2.0); Eos % (Auto) 0.2 % (0.0-4.0); Hematocrit 27.8 % (39.0-51.0); Hemoglobin 9.4 gm/dL (13.0-17.0); Lymph # (Auto) 0.8 th/mm3 (1.0-4.8); Lymph % (Auto) 8.6 % (9.0-44.0); Mean Corpuscular HGB Conc 33.7 % (32.0-36.0); Mean Corpuscular Hemoglobin 35.5 pg (27.0-34.0); Mean Corpuscular Volume 105.5 fL (80.0-100.0); Mean Platelet Volume 9.8 fL (7.0-11.0); Mono # (Auto) 0.3 th/mm3 (0.0-0.9); Neut # (Auto) 7.8 th/mm3 (1.8-7.7); Neut % (Auto) 87.9 % (16.0-70.0); Platelet Count 174 th/mm3 (150-450); Red Blood Count 2.63 mil/mm3 (4.50-5.90); Red Cell Distribution Width 17.7 % (11.6-17.2); White Blood Count 8.8 th/mm3 (4.0-11.0)
[2018-04-24 07:29] LABS: Activated Partial Thrombo Time 33.8 sec (24.3-30.1); Prothrombin Time 19.9 sec (9.8-11.6)
[2018-04-24 07:40] LABS: Alanine Aminotransferase 16 U/L (12-78); Albumin 2.7 g/dL (3.4-5.0); Anion Gap 13 meq/L (5-15); Aspartate Aminotransferase 24 U/L (15-37); Blood Urea Nitrogen 24 mg/dL (7-18); Calcium 8.7 mg/dL (8.5-10.1); Carbon Dioxide 21.6 meq/L (21.0-32.0); Chloride 104 meq/L (98-107); Glomerular Filtration Rate 62 mL/min (>89); Glucose,Random 403 mg/dL (74-106); Lipase 36 U/L (73-393); Potassium 4.5 meq/L (3.5-5.1); Sodium 139 meq/L (136-145)
[2018-04-24 07:44] LABS: Troponin I 0.48 ng/mL (0.02-0.05)
[2018-04-24 07:45] LABS: Alkaline Phosphatase 77 U/L (45-117); Creatine Kinase 77 U/L (39-308); Total Protein 6.5 g/dL (6.4-8.2)
[2018-04-24] MEDS ORDERED: Acetaminophen 325 MG Tablet PO PRN (09:37)
[2018-04-24] MEDS ORDERED: Dextrose 50% in Water 50 ML Vial IV.PUSH PRN (10:06)
--- NOTE | 2018-04-24 10:06 | P.HP ---
History of Present Illness Primary Care Physician: Pramod Neri MD History of Present Illness: 83-year-old male with a history of coronary artery disease, CABG x6 in 2005, type 2 diabetes. He was admitted for chest pain secondary to atrial flutter with rate into 150 on admission. He responded to a combination of nitroglycerin and diltiazem which brought his rate into the 80s and resulted chest pain. He has a history of atrial flutter and was most recently treated 2- 3 months ago in [place], [place] where his medications were adjusted. Since that time he has not had recurrence of atrial flutter until today. On admission he had elevated BNP and troponins which indicated more extensive heart disease in addition to his history. His chief enterprise architect locally is Dr. Jamison, and his group has been consulted to assist with further workup. Patient denies any dysuria, fevers, GI symptoms, nausea, vomiting. Patient denies any recent cough, fevers, phlegm color changes, congestion. He does complain of postherpetic neuralgia, suffered shingles approximately 1 month ago affecting his upper thigh, groin, buttocks. We discussed outpatient treatment for this but given his current arrhythmia is not the best time to start Lyrica or Neurontin. Inpatient Certification: I certify that the inpatient services were ordered in accordance with Medicare regulations governing the order. This includes certification that hospital inpatient services are reasonable and necessary and in the case of services not specified as inpatient-only under 42 CFR 419.22(n), that they are appropriately provided as inpatient services in accordance to with the 2-midnight benchmark under 43 CFR 412.3(e) Review of Systems All other systems reviewed negative except as stated in HPI PMFSH - History History Provided By: Patient - Medical History Medical History: Medical History (Last Updated 04/24/18 @ 09:56 by Todd Saunders MD) Afib Diabetes Shingles - Surgical History Surgical History: Surgical History (Last Updated 04/24/18 @ 07:25 by Argelia Hernandez RN) H/O heart artery stent S/P CABG (coronary artery bypass graft) - Family History Family History: Family History (Last Updated 04/24/18 @ 09:57 by Todd Saunders MD) Other Coronary artery disease Hypertension - Tobacco History Second Hand Smoke Exposure: No Smoking Status: Never smoker - Alcohol History How Often Do You Have a Drink Containing Alcohol: Never - Substance Use History Substance History: No History of Abuse - Travel History Recent Travel in the [place] Within the Last 8 Weeks: No Recent Travel Out of the Country Within the Last 8 Weeks: No - Immunization History Tetanus Immunization: Unsure Medications and Allergies Active Medications: Active Medications Acetaminophen (Tylenol) 650 mg PO Q4H PRN PRN Reason: Temp > 100.4 Al Hydroxide/Mg Hydroxide (Milk Of Magnesia Liq) 30 ml PO Q12H PRN PRN Reason: Mild Constipation Atorvastatin Calcium (Lipitor) 40 mg PO DAILY GRANT Furosemide (Lasix Inj) 40 mg IV.PUSH ONCE ONE Stop: 04/24/18 09:43 Sodium Chloride (Ns Inj) 1,000 mls @ 42 mls/hr IV.CONT .[id number] GRANT Non-Formulary Medication (Isosorbide Mononitrate [Isosorbide Mononitrate]) 120 mg PO QAM GRANT Non-Formulary Medication (Metoprolol Succinate [Toprol Xl]) 200 mg PO DAILY GRANT Non-Formulary Medication (Ranolazine [Ranexa]) 1,000 mg PO BID GRANT Non-Formulary Medication (Solifenacin [Vesicare]) 5 mg PO DAILY GRANT Ondansetron HCl (Zofran Inj) 4 mg IV.PUSH Q6H PRN PRN Reason: NAUSEA OR VOMITING Rivaroxaban (Xarelto) 25 mg PO DAILY [facility] Sodium Chloride (Ns Flush) 2 ml IV.FLUSH UNSCH PRN PRN Reason: FLUSH AFTER USING IV ACCESS Allergies Allergy/AdvReac Type Severity Reaction Status Date / Time No Known Allergies AdvReac Unknown Uncoded 08/08/17 14:07 Home Medications Medication Instructions Recorded Confirmed Type aspirin 81 mg PO DAILY 04/24/18 04/24/18 History atorvastatin 40 mg PO DAILY 04/24/18 04/24/18 History insulin glargine [Lantus U-100 100 unit SUBCUT DAILY 04/24/18 04/24/18 History Insulin] isosorbide mononitrate 120 mg PO QAM 04/24/18 04/24/18 History metformin [Glucophage] 1,000 mg PO BID 04/24/18 04/24/18 History metoprolol succinate [Toprol XL] 200 mg PO DAILY 04/24/18 04/24/18 History ranitidine HCl 150 mg PO DAILY 04/24/18 04/24/18 History ranolazine [Ranexa] 1,000 mg PO BID 04/24/18 04/24/18 History rivaroxaban [Xarelto] 25 mg PO DAILY 04/24/18 04/24/18 History solifenacin [Vesicare] 5 mg PO DAILY 04/24/18 04/24/18 History Exam Vital signs: Vital Signs 04/24/18 06:49 04/24/18 07:00 04/24/18 08:00 Pulse Rate 78 79 76 Respiratory Rate 20 20 16 Blood Pressure 110/70 107/60 119/67 Pulse Oximetry 97 96 96 Intake & Output 04/23/18 04/24/18 04/24/18 18:59 06:59 18:59 Intake Total 500 / 500 Balance 500 / 500 Weight 68.039 kg Intake: IV 500 / 500 NS Inj 500 ML @ Wide Open IV. 500 / 500 SIG ONCE ONE Rx#:[id number] Narrative: GENERAL: AAOx3, no acute distress, adequate nutrition SKIN: Warm and dry, no active herpetic lesions, some areas of skin redness where crust from shingles used to be HEAD: Atraumatic. Normocephalic. EYES: Pupils equal, round, reactive to light. No scleral icterus. No injection or drainage. ENT: No nasal bleeding or discharge. Moist mucous membranes. Nonerythematous oropharynx. NECK: Trachea midline. Thyroid size within normal limits. CARDIOVASCULAR: Regular rate and rhythm. 1/6 systolic ejection murmur, mild JVD RESPIRATORY: Clear and equal to auscultation bilaterally. No crackles, no wheezes. No accessory muscle use. GASTROINTESTINAL: Abdomen soft, non-tender, nondistended, normal active bowel sounds. Hepatic and splenic margins not palpable. MUSCULOSKELETAL: Extremities without clubbing or cyanosis. No obvious deformities. 1+ edema to sock line NEUROLOGICAL: Awake and alert. No obvious cranial nerve deficits. Motor grossly within normal limits. No focal deficits. Five out of 5 muscle strength in the arms and legs. Normal speech. PSYCHIATRIC: Appropriate mood and affect; insight and judgment normal. Results - Labs CBC & Chem 7: 04/24/18 06:50 04/24/18 06:50 Labs: Laboratory Results - last 24 hr 04/24/18 04/24/18 04/24/18 06:50 06:50 06:50 WBC 8.8 RBC 2.63 L Hgb 9.4 L Hct 27.8 L MCV 105.5 H MCH 35.5 H MCHC 33.7 RDW 17.7 H Plt Count 174 MPV 9.8 Neut % (Auto) 87.9 H Lymph % (Auto) 8.6 L [place] % (Auto) 3.0 Eos % (Auto) 0.2 Baso % (Auto) 0.3 Neut # (Auto) 7.8 H Lymph # (Auto) 0.8 L [place] # (Auto) 0.3 Eos # (Auto) 0.0 Baso # (Auto) 0.0 WBC Differential . Differential Comment Auto diff final PT 19.9 H INR 2.0 APTT 33.8 H Sodium 139 Potassium 4.5 Chloride 104 Carbon Dioxide 21.6 Anion Gap 13 BUN 24 H Creatinine 1.13 Estimated GFR 62 L Random Glucose 403 H Calcium 8.7 Total Bilirubin 1.0 AST 24 ALT 16 Alkaline Phosphatase 77 Total Creatine Kinase 77 Troponin I 0.48 H B-Natriuretic Peptide Total Protein 6.5 Albumin 2.7 L Lipase 36 L 04/24/18 06:50 WBC RBC Hgb Hct MCV MCH MCHC RDW Plt Count MPV Neut % (Auto) Lymph % (Auto) [place] % (Auto) Eos % (Auto) Baso % (Auto) Neut # (Auto) Lymph # (Auto) [place] # (Auto) Eos # (Auto) Baso # (Auto) WBC Differential Differential Comment PT INR APTT Sodium Potassium Chloride Carbon Dioxide Anion Gap BUN Creatinine Estimated GFR Random Glucose Calcium Total Bilirubin AST ALT Alkaline Phosphatase Total Creatine Kinase Troponin I B-Natriuretic Peptide 1202 H Total Protein Albumin Lipase - Imaging Impressions Chest X-Ray 04/24/18 06:47 CONCLUSION: Cardiomegaly with pulmonary edema. Caprini VTE Risk Assessment Caprini VTE Risk Assessment: Moderate/High Risk (score >= 2) Caprini Risk Assessment Model: Point Value = 1 Point Value = 2 Point Value = 3 Point Value = 5 Age 41-60 Minor surgery BMI > 25 kg/m2 Swollen legs Varicose veins or History of unexplained or recurrent spontaneous Oral contraceptives or hormone replacement Sepsis (< 1 month) Serious lung disease, including pneumonia (< 1 month) Abnormal pulmonary function Acute myocardial infarction Congestive heart failure (< 1 month) History of inflammatory bowel disease Medical patient at bed rest Age 61-74 Arthroscopic surgery Major open surgery (> 45 min) Laparoscopic surgery (> 45 min) Malignancy Confined to bed (> 72 hours) Immobilizing plaster cast Central venous access Age >= 75 History of VTE Family history of VTE Factor V Leiden Prothrombin [id number] Lupus anticoagulant Anticardiolipin antibodies Elevated serum homocysteine Heparin-induced thrombocytopenia Other congenital or acquired thrombophilia Stroke (< 1 month) Elective arthroplasty Hip, pelvis, or leg fracture Acute spinal cord injury (< 1 month) Prophylaxis Regimen: Total Risk Factor Score Risk Level Prophylaxis Regimen 0-1 Low Early ambulation 2 Moderate Order ONE of the following: *Sequential Compression Device (SCD) *Heparin 5000 units SQ BID 3-4 Higher Order ONE of the following medications: *Heparin 5000 units SQ TID *Enoxaparin/Lovenox 40 mg SQ daily (WT < 150 kg, CrCl > 30 mL/min) *Enoxaparin/Lovenox 30 mg SQ daily (WT < 150 kg, CrCl > 10-29 mL/min) *Enoxaparin/Lovenox 30 mg SQ BID (WT < 150 kg, CrCl > 30 mL/min) AND/OR *Sequential Compression Device (SCD) 5 or more Highest Order ONE of the following medications: *Heparin 5000 units SQ TID (Preferred with Epidurals) *Enoxaparin/Lovenox 40 mg SQ daily (WT < 150 kg, CrCl > 30 mL/min) *Enoxaparin/Lovenox 30 mg SQ daily (WT < 150 kg, CrCl > 10-29 mL/min) *Enoxaparin/Lovenox 30 mg SQ BID (WT < 150 kg, CrCl > 30 mL/min) AND *Sequential Compression Device (SCD) Assessment and Plan - Plan Acute chest pain with atrial flutter Chest pain seems related to atrial flutter, whether primary or secondary is undetermined Patient has extensive history of CAD, CABGx6 in 2005 Keep n.p.o. for possibility of cardiac procedure Patient is currently chest pain-free, will add nitro as needed, follow on telemetry, as needed oxygen Appreciate cardiology consult Acute on chronic congestive heart failure Chest x-ray shows pulmonary edema and cardiomegaly, ankles show +1 edema Single dose of 40 mg IV Lasix 2D echocardiogram ordered Type 2 diabetes Accu-Cheks with sliding scale insulin coverage Diabetic diet Postherpetic neuralgia Patient had an episode of shingles in his leg groin and buttocks approximately 6 weeks ago Pain has persisted despite standard treatment Discussed outpatient treatment through his primary care doctor, Neurontin and Lyrica are 2 options but should not be started until atrial flutter addressed DVT prophylaxis Resume Xarelto if no heart cath is to be performed
[2018-04-24] MEDS ORDERED: Sodium Chloride 0.9% 2 ML Flush PRN IV.FLUSH (10:21)
[2018-04-24] MEDS ORDERED: Isosorbide Mononitrate 60 MG ER 24HR Tablet (Imdur) PO SCH (11:00)
[2018-04-24] MEDS: Sod Chloride 0.9% Inj 1,000 ML IV.CONT SCH (11:57)
[2018-04-24] MEDS: Insulin NovoLOG Aspart Correctional Sugar Inj SQ SCH ×3 (12:42→22:04)
[2018-04-24 13:56] LABS: Troponin I 6.97 ng/mL (0.02-0.05)
--- NOTE | 2018-04-24 14:49 | P.CONCA ---
History of Present Illness Service: Cardiology Consult date: 04/24/18 Requesting Physician: Todd Saunders Reason for Consult: Chest pain, elevated troponin Primary Care Provider: Pramod Neri MD History of Present Illness: This is a very pleasant 83-year-old male known to Dr. Jamison with a history of atherosclerotic heart disease status post CABG x6 in 2005, angioplasty and stenting to the RCA in 2011, atrial flutter, mitral valve regurgitation, hypertension, hyperlipidemia, diabetes, shortness of breath, cardiomyopathy and congestive heart failure. He states that at 2:00 in the morning he woke up with substernal chest pain and shortness of breath. He tried to go back to sleep and awoke again at 5:00 this morning and decided he better call EMS. He was brought to the emergency department for further evaluation. He also stated that 3 weeks ago he had a similar episode and did not seek treatment. He admits to not taking his diuretics for a couple of weeks now. Currently he denies any chest pain, pressure, palpitations, dizziness, edema or shortness of breath. He is leaving the room to go get a 2D echo at this time. Review of Systems All other systems reviewed negative except as stated in HPI PMFSH - History History Provided By: Patient - Medical History Medical History: Medical History (Last Updated 04/24/18 @ 09:56 by Todd Saunders MD) Afib Diabetes Shingles - Surgical History Surgical History: Surgical History (Last Updated 04/24/18 @ 07:25 by Argelia Hernandez RN) H/O heart artery stent S/P CABG (coronary artery bypass graft) - Family History Family History: Family History (Last Updated 04/24/18 @ 09:57 by Todd Saunders MD) Other Coronary artery disease Hypertension - Tobacco History Second Hand Smoke Exposure: No Smoking Status: Never smoker - Alcohol History How Often Do You Have a Drink Containing Alcohol: Never - Substance Use History Substance History: No History of Abuse - Travel History Recent Travel in the [place] Within the Last 8 Weeks: No Recent Travel Out of the Country Within the Last 8 Weeks: No - Immunization History Tetanus Immunization: Unsure Medications and Allergies Allergies Allergy/AdvReac Type Severity Reaction Status Date / Time No Known Allergies AdvReac Unknown Uncoded 08/08/17 14:07 Home Medications Medication Instructions Recorded Confirmed Type aspirin 81 mg PO DAILY 04/24/18 04/24/18 History atorvastatin 40 mg PO DAILY 04/24/18 04/24/18 History insulin glargine [Lantus U-100 100 unit SUBCUT DAILY 04/24/18 04/24/18 History Insulin] isosorbide mononitrate 120 mg PO QAM 04/24/18 04/24/18 History metformin [Glucophage] 1,000 mg PO BID 04/24/18 04/24/18 History metoprolol succinate [Toprol XL] 200 mg PO DAILY 04/24/18 04/24/18 History ranitidine HCl 150 mg PO DAILY 04/24/18 04/24/18 History ranolazine [Ranexa] 1,000 mg PO BID 04/24/18 04/24/18 History rivaroxaban [Xarelto] 25 mg PO DAILY 04/24/18 04/24/18 History solifenacin [Vesicare] 5 mg PO DAILY 04/24/18 04/24/18 History Active Medications: Active Medications Acetaminophen (Tylenol) 650 mg PO Q4H PRN PRN Reason: Temp > 100.4 Al Hydroxide/Mg Hydroxide (Milk Of Neit[place]avannah Liq) 30 ml PO Q12H PRN PRN Reason: Mild Constipation Atorvastatin Calcium (Lipitor) 40 mg PO DAILY [facility] Dextrose (D50w Vial) 50 ml IV.PUSH UNSCH PRN PRN Reason: PER HYPOGLYCEMIA PROTOCOL Glucagon (Glucagon Inj) 1 mg OTHER PRN PRN PRN Reason: for Hypoglycemia Protocol Sodium Chloride (Ns Inj) 1,000 mls @ 42 mls/hr IV.CONT .[id number] [facility] Last Admin: 04/24/18 11:57 Dose: 42 mls/hr Insulin Aspart (Novolog Insulin Correctional Sugar Inj) 0 unit SQ ACHS [facility]; Protocol Last Admin: 04/24/18 12:42 Dose: Not Given Isosorbide Mononitrate (Imdur) 120 mg PO DAILY@0700 [facility] Metoprolol Succinate (Toprol Xl) 200 mg PO DAILY [facility] Ondansetron HCl (Zofran Inj) 4 mg IV.PUSH Q6H PRN PRN Reason: NAUSEA OR VOMITING Ranolazine (Ranexa) 1,000 mg PO BID [facility] Sodium Chloride (Ns Flush) 2 ml IV.FLUSH BID [facility] Sodium Chloride (Ns Flush) 2 ml IV.FLUSH PRN PRN PRN Reason: FLUSH AFTER USING IV ACCESS Tolterodine Tartrate (Detrol La) 2 mg PO DAILY [facility] Exam Vital signs: Vital Signs 04/24/18 06:49 04/24/18 07:00 04/24/18 08:00 Pulse Rate 78 79 76 Respiratory Rate 20 20 16 Blood Pressure 110/70 107/60 119/67 Pulse Oximetry 97 96 96 04/24/18 12:58 Pulse Rate 73 Respiratory Rate 16 Blood Pressure 103/56 L Pulse Oximetry Intake & Output 04/23/18 04/24/18 04/24/18 18:59 06:59 18:59 Intake Total 500 / 500 Balance 500 / 500 Weight 68.039 kg Intake: IV 500 / 500 NS Inj 500 ML @ Wide Open IV. 500 / 500 SIG ONCE ONE Rx#:[id number] - Constitutional no acute distress - Routine HEENT Exam Head: Present: normocephalic Eye: Present: PERRL ENT: Present: mucous membranes moist - Routine Neck Exam Present: full ROM - Routine Respiratory Exam Present: CTA bilaterally - Routine Cardiovascular Exam Present: S1, S2, irregular rhythm - Routine Abdominal Exam Present: normoactive bowel sounds - Routine Extremities Exam Present: edema, full ROM, pulses intact, normal capillary refill. Absent: cyanosis, clubbing - Routine Skin Exam Present: intact Comments: Old lesions from shingles. - Routine Neurological Exam Present: oriented X3 Results 04/24/18 06:50 04/24/18 06:50 Cardiac Enzymes 04/24/18 04/24/18 04/24/18 Range/Units 06:50 06:50 12:02 AST 24 (15-37) U/L Troponin I 0.48 H 6.97 H* (0.02-0.05) ng/mL B-Natriuretic Peptide 1202 H (0-100) pg/mL Coagulation 04/24/18 04/24/18 Range/Units 06:50 06:50 PT 19.9 H (9.8-11.6) sec APTT 33.8 H (24.3-30.1) sec B-Natriuretic Peptide 1202 H (0-100) pg/mL CBC 04/24/18 Range/Units 06:50 WBC 8.8 (4.0-11.0) th/mm3 RBC 2.63 L (4.50-5.90) mil/mm3 Hgb 9.4 L (13.0-17.0) gm/dL Hct 27.8 L (39.0-51.0) % Plt Count 174 (150-450) th/mm3 Neut # (Auto) 7.8 H (1.8-7.7) th/mm3 Lymph # (Auto) 0.8 L (1.0-4.8) th/mm3 Jewell # (Auto) 0.3 (0.0-0.9) th/mm3 Eos # (Auto) 0.0 (0.0-0.4) th/mm3 Baso # (Auto) 0.0 (0.0-0.2) th/mm3 Comprehensive Metabolic Panel 04/24/18 Range/Units 06:50 Sodium 139 (136-145) meq/L Potassium 4.5 (3.5-5.1) meq/L Chloride 104 (98-107) meq/L Carbon Dioxide 21.6 (21.0-32.0) meq/L BUN 24 H (7-18) mg/dL Creatinine 1.13 (0.60-1.30) mg/dL Calcium 8.7 (8.5-10.1) mg/dL AST 24 (15-37) U/L ALT 16 (12-78) U/L Alkaline Phosphatase 77 (45-117) U/L Total Protein 6.5 (6.4-8.2) g/dL Albumin 2.7 L (3.4-5.0) g/dL Intake and Output 04/23/18 04/24/18 04/24/18 22:59 06:59 14:59 Intake Total 500 / 500 Balance 500 / 500 Intake: IV 500 / 500 NS Inj 500 ML @ Wide Open IV. 500 / 500 SIG ONCE ONE Rx#:[id number] Other: Weight 68.039 kg - Imaging and Cardiology Imaging: Impressions Chest X-Ray 04/24/18 06:47 CONCLUSION: Cardiomegaly with pulmonary edema. Assessment and Plan - Assessment (1) Atrial flutter with rapid ventricular response Code(s): I48.92 - Unspecified atrial flutter Status: Acute (2) Congestive heart failure Code(s): I50.9 - Heart failure, unspecified Status: Acute (3) Pulmonary edema Code(s): J81.1 - Chronic pulmonary edema Status: Acute (4) Elevated troponin Code(s): R74.8 - Abnormal levels of other serum enzymes Status: Acute - Plan Continue current home cardiac medications, hold Xarelto. Patient is in no acute distress at this time. Troponin levels are trending, c/w NSTEMI. We will schedule patient for cardiac catheterization with possible coronary intervention tomorrow. Have consent for cardiac catheterization with possible coronary intervention signed and placed on chart. Discussed risk factors including but not limited to: bleeding and/or infection at insertion site, damage to coronary arteries, acute kidney injury, stroke, heart attack and/or possible . Patient verbalized understanding and wishes to proceed with cath. We will start Plavix 75mg PO QD starting tomorrow, give Plavix 300mg PO now for anticoagulation. Patient to be NPO after breakfast. We will continue to monitor the patient during his hospitalization. Patient to follow up with Dr. Jamison post discharge from the hospital. The patient was seen and evaluated by Dr. Sanford who participated in care, management and decision making. - Attending Attestation Patient seen and examined. I reviewed and agree with the evaluation and plan as presented. Will schedule cath and PCI if necessary tomorrow. Start Plavix, aggressive risk factor modification, hold Xarelto. D/w pt and family. (2) Congestive heart failure Qualifiers: Heart failure type: unspecified Heart failure chronicity: acute on chronic Qualified Code(s): I50.9 - Heart failure, unspecified (3) Pulmonary edema Qualifiers: Chronicity: acute Qualified Code(s): J81.0 - Acute pulmonary edema
--- NOTE | 2018-04-24 16:22 | ECG ---
Date Performed: 04/24/2018 Time Performed: 06:41:44 PTAGE: 83 years EKG: ATRIAL FLUTTER/TACHYCARDIA WITH ABERRANT CONDUCTION OR VENTRICULAR PREMATURE COMPLEXES ST D EVIATION AND MODERATE T-WAVE ABNORMALITY, CONSIDER INFERIOR ISCHEMIA When compared to previous tracin g, rhythm appears to be more Clearly atrial fibrillation, and ST changes are more prominent. Consider ischemia. ABNORMAL ECG PREVIOUS TRACING : 08/10/2017 23.29.46 DOCTOR: Jack Jonas Interpretating Date/Time 04/24/2018 16:21:16
--- NOTE | 2018-04-24 18:02 | ECHRPT ---
Indication: CHEST PAIN CONCLUSIONS The left ventricular systolic function is jzldppkv-tf-vbxulzi reduced with an estimated ejection fra ction in the range of 35-40%. Wall thickness is measured at the upper limits of normal. The left atrial size is mildly dilated. Increased atrial septal thickness. Rwyi-kj-ofdwwzze mitral valve regurgitation. Mild aortic valve stenosis. There is moderate tricuspid regurgitation. Estimated RAP 8mmHg. BP: / HR: Rhythm: Atrial flutter MEASUREMENTS (Male / Female) Normal Values Technical Quality:Fair 2D ECHO LV Diastolic Diameter PLAX 5.3 cm 4.2 - 5.9 / 3.9 - 5.3 cm LV Systolic Diameter PLAX 4.4 cm IVS Diastolic Thickness 1.0 cm 0.6 - 1.0 / 0.6 - 0.9 cm LVPW Diastolic Thickness 1.0 cm 0.6 - 1.0 / 0.6 - 0.9 cm LV Relative Wall Thickness 0.4 RV Internal Dim ED PLAX 3.1 cm LVOT Diameter 1.5 cm Aortic Root Diameter 2.0 cm LA Systolic Diameter LX 4.4 cm 3.0 - 4.0 / 2.7 - 3.8 cm DOPPLER AV Peak Velocity 264.0 cm/s AV Peak Gradient 27.9 mmHg AV Mean Gradient 13.0 mmHg AV Velocity Time Integral 46.8 cm LVOT Peak Velocity 69.9 cm/s LVOT Peak Gradient 2.0 mmHg LVOT Velocity Time Integral 14.9 cm AV Area Cont Eq vti 0.6 cm AV Area Cont Eq pk 0.5 cm MV Peak Velocity 109.0 cm/s MV Peak Gradient 4.8 mmHg MV Mean Velocity 58.5 cm/s MV Mean Gradient 2.0 mmHg MR Peak Velocity 228.0 cm/s MR Peak Gradient 20.8 mmHg Mitral E Point Velocity 100.0 cm/s Mitral A Point Velocity 56.8 cm/s Mitral E to A Ratio 1.8 LV E' Lateral Velocity 6.7 cm/s Mitral E to LV E' Lateral Ratio 14.9 LV E' Septal Velocity 5.1 cm/s Mitral E to LV E' Septal Ratio 19.7 TR Peak Velocity 307.0 cm/s TR Peak Gradient 37.7 mmHg Right Atrial Pressure 10.0 mmHg Pulmonary Artery Systolic Pressu 47.7 mmHg Right Ventricular Systolic Press 47.7 mmHg PV Peak Velocity 66.2 cm/s PV Peak Gradient 1.8 mmHg FINDINGS LEFT VENTRICLE The left ventricular systolic function is nqjeixhj-as-baxwygs reduced with an estimated ejection fra ction in the range of 35-40%. There is diffuse global hypokinesis with distinct regional wall motion abnormalities. Wall thickness is measured at the upper limits of normal. RIGHT VENTRICLE Normal right ventricular size and systolic function. LEFT ATRIUM The left atrial size is mildly dilated. RIGHT ATRIUM The right atrial size is normal. ATRIAL SEPTUM Increased atrial septal thickness. AORTA The aortic root and proximal ascending aorta are normal in size on limited imaging. MITRAL VALVE Mild thickening of the mitral valve leaflets. Hlev-nx-tiuupfhd mitral valve regurgitation. AORTIC VALVE The aortic valve is not well visualized. No aortic valve regurgitation. Mild aortic valve stenosis with mean gradient 13mmHg. TRICUSPID VALVE The tricuspid valve is not well visualized. There is moderate tricuspid regurgitation. PULMONARY VALVE The pulmonary valve is not well visualized. VESSELS The inferior vena cava is normal in size. There is less than 50% respiratory change in dimension of the inferior vena cava (abnormal). Estimated RAP 8mmHg. PERICARDIUM No pericardial effusion. Kieran Echeverria (Electronically Signed) Final Date:24 April 2018 18:02
[2018-04-24] MEDS: Ranolazine 500 MG 12HR ER Tablet PO SCH (20:08)
[2018-04-24] MEDS: Sodium Chloride 0.9% 2 ML Flush BID IV.FLUSH SCH (20:08)
[2018-04-24 21:05] LABS: Troponin I 6.08 ng/mL (0.02-0.05)
[2018-04-24] MEDS ORDERED: Sodium Chlor 0.9% Inj 250 ML IV.SIG SCH (23:45)
[2018-04-25] MEDS: Isosorbide Mononitrate 60 MG ER 24HR Tablet (Imdur) PO SCH (06:09)
[2018-04-25 06:46] LABS: Hematocrit 26.6 % (39.0-51.0); Hemoglobin 8.7 gm/dL (13.0-17.0); Mean Corpuscular HGB Conc 32.5 % (32.0-36.0); Mean Corpuscular Volume 101.6 fL (80.0-100.0); Mean Platelet Volume 9.2 fL (7.0-11.0); Platelet Count 158 th/mm3 (150-450); Red Blood Count 2.62 mil/mm3 (4.50-5.90); Red Cell Distribution Width 17.7 % (11.6-17.2); White Blood Count 5.7 th/mm3 (4.0-11.0)
[2018-04-25 07:09] LABS: Calcium 8.2 mg/dL (8.5-10.1); Carbon Dioxide 25.4 meq/L (21.0-32.0); Potassium 4.1 meq/L (3.5-5.1)
[2018-04-25] MEDS ORDERED: Rivaroxaban 20 MG Tablet PO SCH (09:00)
--- NOTE | 2018-04-25 09:58 | P.PNWCN ---
Wound Care Nurse Consult Description: Consult for Wound Management of toes per FAHAD Cool Communicated with: Patient RN Recommendation: [place] Right BIG toe and Right 4th toe with Betadine (Povidone -Iodine) BID and leave open to air. Additional information: Patient seen on for dry stable eschar. Per protocol it is recommended that the area be painted with Betadine and left open to air. Patient should keep his appointment with Dr Pedraza on Saturday and follow up outpatient with Vascular as well.
[2018-04-25] MEDS: Ranolazine 500 MG 12HR ER Tablet PO SCH ×2 (10:15→21:15)
[2018-04-25] MEDS: Tolterodine Tartrate LA 2 MG Capsule PO SCH (10:15)
[2018-04-25] MEDS: Sodium Chloride 0.9% 2 ML Flush BID IV.FLUSH SCH ×2 (10:17→21:15)
[2018-04-25] MEDS: Sod Chloride 0.9% Inj 1,000 ML IV.CONT SCH (10:17)
[2018-04-25] MEDS: Insulin NovoLOG Aspart Correctional Sugar Inj SQ SCH ×4 (10:17→22:41)
--- NOTE | 2018-04-25 11:38 | P.PNIM ---
Subjective Interval history: Patient is sitting down comfortably in a chair. He denies any current chest pain. No shortness of breath. Physical Exam Vital signs: Vital Signs 04/24/18 12:58 04/24/18 16:42 04/24/18 18:00 Temperature 97.8 F Pulse Rate 73 72 72 Respiratory Rate 16 18 20 Blood Pressure 103/56 L 113/65 112/69 Pulse Oximetry 98 94 L 04/24/18 19:00 04/24/18 20:00 04/24/18 21:00 Temperature Pulse Rate 92 H 80 82 Respiratory Rate Blood Pressure Pulse Oximetry 95 93 L 04/24/18 22:00 04/24/18 23:00 04/25/18 00:00 Temperature 98.5 F Pulse Rate 80 84 78 Respiratory Rate 22 Blood Pressure 84/50 L Pulse Oximetry 98 04/25/18 01:00 04/25/18 01:13 04/25/18 02:00 Temperature Pulse Rate 71 84 Respiratory Rate Blood Pressure 90/58 L Pulse Oximetry 04/25/18 03:00 04/25/18 04:00 04/25/18 05:00 Temperature 98.5 F Pulse Rate 74 71 68 Respiratory Rate 22 Blood Pressure 96/65 L Pulse Oximetry 100 04/25/18 06:00 04/25/18 07:24 04/25/18 08:46 Temperature Pulse Rate 70 Respiratory Rate Blood Pressure Pulse Oximetry 92 L 92 L Intake & Output 04/24/18 04/25/18 04/25/18 18:59 06:59 18:59 Intake Total 860 / 860 490 / 490 1000 / 1000 Output Total 240 / 240 250 / 250 Balance 620 / 620 240 / 240 1000 / 1000 Weight 68 kg Intake: IV 500 / 500 250 / 250 1000 / 1000 NS Inj 1,000 ML @ 42 mls/hr IV. 1000 / 1000 CONT .[id number] GRANT Rx#:[id number] NS Inj 250 ML @ 500 mls/hr IV. 250 / 250 SIG BOLUS GRANT Rx#:[id number] NS Inj 500 ML @ Wide Open IV. 500 / 500 SIG ONCE ONE Rx#:[id number] Oral 360 / 360 240 / 240 Output: Urine 240 / 240 250 / 250 Other: Date of Last Bowel Movement 04/23/18 04/23/18 Narrative: Patient is not any acute distress. No chest pain, shortness of breath on supplemental oxygen S1-S2 audible Bibasilar crackles Abdomen is soft nontender normal bowel sounds 1+ pitting edema bilateral lower extremities up to the shins Neurological examination patient moves all 4 extremities and sensation is intact bilaterally Results - Labs CBC & Chem 7: 04/25/18 05:55 04/25/18 05:55 Laboratory Results - last 24 hr 04/24/18 04/24/18 04/24/18 11:50 12:02 18:14 WBC RBC Hgb Hct MCV MCH MCHC RDW Plt Count MPV Sodium Potassium Chloride Carbon Dioxide Anion Gap BUN Creatinine Estimated GFR POC Glucose 250 H 241 H Random Glucose Calcium Total Creatine Kinase 166 Troponin I 6.97 H* 04/24/18 04/24/18 04/25/18 19:52 20:07 00:12 WBC RBC Hgb Hct MCV MCH MCHC RDW Plt Count MPV Sodium Potassium Chloride Carbon Dioxide Anion Gap BUN Creatinine Estimated GFR POC Glucose 285 H 249 H Random Glucose Calcium Total Creatine Kinase 136 Troponin I 6.08 H* 04/25/18 04/25/18 04/25/18 05:55 05:55 08:01 WBC 5.7 RBC 2.62 L Hgb 8.7 L Hct 26.6 L MCV 101.6 H D MCH 33.0 MCHC 32.5 RDW 17.7 H Plt Count 158 MPV 9.2 Sodium 143 Potassium 4.1 Chloride 109 H Carbon Dioxide 25.4 Anion Gap 9 BUN 26 H Creatinine 1.06 Estimated GFR 67 L POC Glucose 264 H Random Glucose 237 H D Calcium 8.2 L Total Creatine Kinase Troponin I Assessment and Plan - Plan This patient is an 83-year-old male with a diagnosis of coronary artery disease status post CABG x6 in 2005, diabetes mellitus type 2. The patient presented to our emergency room with complaints of left-sided chest pain and palpitations and was found to be in atrial flutter with RVR. Patient also has systolic CHF and was found to have pulmonary vascular congestion on chest x-ray and was subsequently started on a nitroglycerin drip and diltiazem drip to control heart rate and help with CHF exacerbation. 1. NSTEMI 2. Acute on chronic systolic CHF exacerbation 3. Atrial flutter with RVR likely secondary to #1 and 2. As mentioned above the patient presented with palpitations, shortness of breath , left-sided chest pain. As per documentation the patient presented with a heart rate in the 150s. EKG shows A. fib with a heart rate in the 80s. There are ST segment depressions in the inferior leads. Troponin was found to be elevated at 6. Patient was started on aspirin, Plavix, statin, beta-brenda, Lasix. Initially he was also on a nitroglycerin drip. He is also on Cardizem drip. Rate is now better controlled. We will continue IV Lasix for CHF exacerbation. Patient now appears comfortable on supplemental oxygen. Cardiology has evaluated the patient and the plan is for cardiac catheterization today. Echocardiogram done yesterday shows an ejection fraction of 35%. Strict ins and outs. The case and plan was discussed with the patient's nurse. 4. Diabetes mellitus type 2 Continue low-dose insulin sliding scale after a cardiac catheterization. His diabetes medication regimen will be adjusted as needed.
[2018-04-25] MEDS ORDERED: Heparin/NS PF Inj 1,000 ML ONE (15:42)
[2018-04-25] MEDS ORDERED: Heparin/NS PF Inj 1,500 ML ONE (15:44)
[2018-04-25] MEDS ORDERED: fentaNYL Citrate Inj 100 MCG/2 ML Ampul ONE (15:44)
[2018-04-25] MEDS ORDERED: Heparin 10,000 UNITS/10 ML Vial (for IV use) ONE (15:44)
[2018-04-25] MEDS ORDERED: Lidocaine PF 1% Inj 30 ML Vial ONE (15:45)
--- NOTE | 2018-04-25 16:45 | CATHPROC ---
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 Stump 1 SVG Graft L Heart Cath Equipment Time Sales Service Route Manager Description Size Mfg Part Number Used/Scraped TRANSDUCER, TRUWAVE [id number] 15:36 Disrupt6 * Used W/STOCKCOCK *[id number] 16:32 [employer] VASCADE, FR5 CLOSURE SYSTEM FR 5 Used *[id number] *[id number] 15:36 [employer] BLANKET,WARM AIR CCL * Used *[id number] 15:36 [employer] PACK, CCL CUSTOM * Used *[id number] 15:36 [employer] PACER PEN, SKIN DUAL W/ RULER * Used *[id number] 16:22 [employer] IM DXTERITY CATHETER FR 5 Used *[id number] 15:46 [employer] JL 4.0 DXTERITY CATHETER FR 5 Used *[id number] PIG ANG 145 DXTERITY [id number] 15:48 [employer] FR 5 Used CATHETER *[id number] 15:36 [employer] [place] WIRE, 3MMJ .035 180CM 180CM Used *[id number] PROBE COVER, STERILE [id number] 15:36 [employer] * Used ULTRASOUND W/ GEL *[id number] 15:36 NAMIC MANIFOLD, 4 PORT * Used *[id number] 15:36 NAMIC TUBING, HIGH PRESSURE 48" 48" Used *[id number] 15:36 [employer] OMNIPAQUE, 350 MG, 150ML 150ML [id number] Used [id number] 15:36 [employer] SHEATH, FR5 TERUMO (10CM) FR 5 Used *[id number] Equipment Model, Serial, Lot Number and Expiration Data Description Model Number Serial Number Lot Number Expiration Date IM DXTERITY CATHETER [id number] 04-04-2020 JL 4.0 DXTERITY CATHETER [id number] 05-28-2020 PIG ANG 145 DXTERITY CATHETER [id number] 10-17-2019 History: Current Medications Medication Dosage/Unit Route Frequency Last Date/Time Taken ASA PLAVIX History: Allergies Allergy Reaction No Known Allergies History: Risk Factors Family History of Hypertension Dyslipidemia Previous [place] Previous Heart Failure Premature CAD Yes Yes No No Yes Prior Valve Prior PCI Prior PCIDate Prior CABG Prior CABGDate Surgery No Yes 04/24/2012 Yes 04/24/2006 Cerebrovascular Peripheral Artery Chronic Lung On Dialysis Diabetes Disease Disease Disease No No No No Yes History: Stress Tests Stress or Imaging Studies Performed No History: Other Current Smoker Method Quit Packs a Day Years Used Pack Years No Cigarettes 30 Years Ago 1 20 20 Labs Hgb (g/dl) Hct (%) WBC (l/cumm) Platelets (thousands) 11.60-17.00 35.00-51.00 4.00-11.00 150.00-450.00 8.7 26.6 5.7 158 Glucose (mg/dl) BUN (mg/dl) Creatinine (mg/dl) BUN:Creatinine (1:x) 74.00-106.00 7.00-18.00 0.50-1.30 10.00-20.00 264 26 1.0 26 Na (meq/l) K (meq/l) 136.00-145.00 3.50-5.10 143 4.1 INR (PTT:PT) 0.90-1.10 2 Troponin I (ng/ml) CPK (u/l) CPK-MB (ng/ML) 0.02-0.05 26.00-308.00 0.50-3.60 6.08 136 Not Drawn Medication Medication Total Dose (Bolus/Oral) Medication Total Dosage/Unit 1% XYLOCAINE 20 mL FENTANYL 25 mcg VERSED 1.5 mg Medications (Bolus/Oral) Medication Time Given Dosage/Unit Administered By Reason VERSED 04/25/2018 3:53:29 PM 1 mg Gina, Ean 1 mg VERSED given in lab by Ean Fuentes RN via Peripheral IV. FENTANYL 04/25/2018 3:54:56 PM 25 mcg Gina, Ean 25 mcg FENTANYL given in lab by Ean Fuentes RN via Peripheral IV. 1% XYLOCAINE 04/25/2018 3:56:33 PM 20 mL Tawana Macias 20 mL 1% XYLOCAINE given in lab by Tawana Macias, RT(R) in Right Groin via Subcutaneous. VERSED 04/25/2018 3:56:52 PM 0.5 mg Ean Fuentes 0.5 mg VERSED given in lab by Ean Fuentes RN via Peripheral IV. Medication (Drip) Medication Time Given Dosage/Unit Concentration/Unit Diluent (ml) Solution IV Solutions 04/25/2018 3:35:39 PM 50 mL (IV) 500 NaCl .9 IV Solutions given in lab by Ean Fuentes RN via Peripheral IV. Pump/Drip Flow using NaCl .9. Initial Case Assessment Cardiovascular HR Rhythm NIBP Chest Pain 71 reg 123/73 0 Edema Present Skin color Skin None Normal Warm Dry Circulatory - Right Pulses Dorsalis Pedis Femoral 1 2 Scale (0,1,2,3,4,d) Circulatory - Left Pulses Dorsalis Pedis Femoral 1 2 Scale (0,1,2,3,4,d) Circulatory - Lower Extremities Color Lower Right Color Lower Left Normal Normal Neurological State Oriented to time-place- Alert Moves all extremities person Respiration - General Respiration Rate SpO2 (%) O2 (lpm) (B/min) 20 92 2 Chronological Log Time Study Chronological Log 15:35:19 Patient arrived via Bed. 15:35:20 Patient Name, D.O.B, / Armband Verified By R.N. 15:35:21 Consent signed by the physician and the patient and verified by the [employer] staff. 15:35:21 Pre-op and post- op instructions given; patient acknowledges understanding of instructions. 15:35:24 Presedation assessment performed by Solar Installation Helper RN. 15:35:27 Patient has been NPO for More than 6Hrs. 15:35:29 Skin Breakdown- none noted or reported 15:35:30 Patient Warmer Placed on the Table. 15:35:31 Brien Prominences Protected 15:35:38 A # 20 IV was noted in the Antecubital (left). Grade = 0 15:35:39 IV Solutions given in lab by Ean Fuentes RN via Peripheral IV. Pump/Drip Flow using NaCl .9. 15:35:42 History and physical on the chart or being dictated. Assessment: Initial Case, HR=71 BPM, Rhythm=reg, UGYI=338/73 mmhg, Chest Pain=0, Edema=None, Co [place]=Normal, Skin = Warm, Dry Right Pulses: Johnny Ped=1, Femoral=2 Left Pulses: Johnny Ped=1, Femoral=2 15:35:46 Lower Right Extremities: Color=Normal Lower Left Extremities: Color=Normal Neurological: State=Alert, Ox3, [place] Respiration: Resp=20 B/min, SpO2=92 %, O2=2 lpm Vitals capture started with the following parameters, Patient=Adult, Interval=5 min, Initial Pr pzgmhv=497 mmHg, 15:39:43 Deflation Rate=5 mmHg, Cuff placed on Left Arm 15:40:19 HR=80 bpm, ORTO=075/73 mmhg, SpO2=85.0 %, Resp=15 B/min, Pain=0, Kristian=10, Barillas=2 15:44:36 Reference ECG taken 15:45:20 HR=71 bpm, MIXU=636/78 mmhg, SpO2=94.0 %, Resp=15 B/min, Pain=0, Kristian=10, Barillas=2 15:49:50 Bilateral groins prepped with 2% chlorhexidine, and draped after a 3 minute waiting time. 15:50:26 HR=67 bpm, MBKL=764/73 mmhg, SpO2=74.0 %, Resp=18 B/min, Pain=0, Kristian=10, Barillas=2 15:53:05 Pressure channel 1 zeroed. 15:53:29 1 mg VERSED given in lab by Ean Fuentes RN via Peripheral IV. 15:54:56 25 mcg FENTANYL given in lab by Ean Fuentes RN via Peripheral IV. 15:55:25 HR=67 bpm, LUXU=983/74 mmhg, SpO2=93.0 %, Resp=20 B/min, Pain=0, Kristian=10, Barillas=2 15:56:33 20 mL 1% XYLOCAINE given in lab by Tawana Macias, RT(R) in Right Groin via Subcutaneous. 15:56:52 0.5 mg VERSED given in lab by Ean Fuentes RN via Peripheral IV. 16:00:26 HR=72 bpm, BUCS=155/72 mmhg, Resp=15 B/min, Pain=0, Kristian=10, Barillas=2 Time Out. Correct patient, correct procedure, correct physician, labs, allergies, and equipment verified with label cutter 16:03:24 team present. Fire risk assesment completed (see hard stop sheet for coding). Time Out Conc urred by MD and individual staff in procedure. 16:04:02 Case Start 16:04:07 Access site was Right Femoral Artery using ultrasound 16:04:14 A SHEATH, FR5 TERUMO (10CM) FR 5 was advanced into the Fem Art (right) using the Percut[place]o us technique. 16:05:25 HR=74 bpm, BTNI=011/76 mmhg, SpO2=96.0 %, Resp=22 B/min, Pain=0, Kristian=10, Barillas=2 A PIG ANG 145 DXTERITY CATHETER FR 5 was advanced over a wire. OMNIPAQUE, 350 MG, 150ML 150ML w as used 16:05:36 for injections. Recorded Pressure: LV, HR=68, Condition=Condition 1 16:09:02 (Left Ventricle) LV 127/14/17 16:10:15 The LV was injected at 10 cc/sec for a total of 30. OMNIPAQUE, 350 MG, 150ML 150ML used. 16:10:24 HR=65 bpm, DSIB=854/66 mmhg, SpO2=85.0 %, Resp=24 B/min, Pain=0, Kristian=10, Barillas=2 Recorded Pressure: LV, Ao, HR=63, Condition=Condition 1 16:12:17 (Left Ventricle) LV 120/11/16, (Aorta) Ao 111/54/77 16:12:34 Catheter was removed A JL 4.0 DXTERITY CATHETER FR 5 was advanced over a wire. OMNIPAQUE, 350 MG, 150ML 150ML was us ed for 16:12:42 injections. 16:15:23 HR=68 bpm, BIYJ=759/68 mmhg, SpO2=87.0 %, Resp=22 B/min, Pain=0, Kristian=10, Barillas=2 16:15:50 Catheter was removed A AR MOD INFINITI CATHETER FR 5 was advanced over a wire. OMNIPAQUE, 350 MG, 150ML 150ML was us ed for 16:15:52 injections. 16:17:42 The RCA was injected and visualized at various angles. OMNIPAQUE, 350 MG, 150ML 150ML used . 16:20:19 The Gft. Stump 1 was injected and visualized at various angles. OMNIPAQUE, 350 MG, 150ML 15 0ML used. 16:20:24 HR=71 bpm, WVDF=994/64 mmhg, SpO2=84.0 %, Resp=20 B/min, Pain=0, Kristian=10, Barillas=2 16:21:53 Catheter was removed A IM DXTERITY CATHETER FR 5 was advanced over a wire. OMNIPAQUE, 350 MG, 150ML 150ML was used f or 16:21:55 injections. 16:23:27 The GIL-LAD was injected and visualized at various angles. OMNIPAQUE, 350 MG, 150ML 150ML used. 16:25:23 HR=72 bpm, XXEY=041/69 mmhg, SpO2=81.0 %, Resp=41 B/min, Pain=0, Kristian=10, Barillas=2 16:27:53 Catheter was removed 16:28:02 Case End (Physician broke scrub) 16:30:24 HR=63 bpm, LXVO=506/71 mmhg, SpO2=97.0 %, Resp=18 B/min, Pain=0, Kristian=10, Barillas=2 16:30:41 An injection in the Fem Art (right) was made through the SHEATH, FR5 TERUMO (10CM) FR 5. 16:34:08 VASCADE, FR5 CLOSURE SYSTEM FR 5 placement in the Fem Art (right) 16:35:25 HR=64 bpm, REXI=123/73 mmhg, SpO2=95.0 %, Resp=41 B/min, Pain=0, Kristian=10, Barillas=2 16:37:25 Catheter(s) removed without difficulty 16:37:29 No case complications noted. 16:37:35 Bedside Report will be given. 16:37:36 Implantable Device card placed in patient's chart. 16:37:48 A Left Heart Cath was performed. 16:40:28 HR=71 bpm, ODRL=336/72 mmhg, SpO2=92.0 %, Resp=15 B/min, Pain=0, Kristian=10, Barillas=2 16:43:02 Sterile dressing applied to site 16:44:11 Vitals capture stopped. 16:47:15 Patient moved to [place] [facility] [place] End Study - Contrast Media Used In Study Contrast Total Opened (mL) Total Used (mL) Total Wasted (mL) Omnipaque 125 125 0 End Study - Maximum Contrast Load Max Contrast Load (mL) 340.0 End Study - Radiation Exposure Fluoro Time (minutes) 7.2 End Study - Sheaths Sheaths Pulled By Sheath Hold Time (min) Tawana Macias End Study - Patient Disposition Complications Transferred To Interventional Outcome No Telemetry Bed No attempt made
[2018-04-25] MEDS ORDERED: Iohexol 350 MG/ML 100 ML Vial (for Cath Lab) IVCONTRAST ONE (17:26)
[2018-04-25] MEDS ORDERED: Iohexol 350 MG/ML 50 ML Vial (for Cath Lab) IVCONTRAST ONE (17:26)
--- NOTE | 2018-04-25 19:46 | MA ---
cc: Jamison Sanford MD DATE: 04/25/2018 INDICATION: Non-ST elevation myocardial infarction; atrial flutter with rapid ventricular response; congestive heart failure, class III; class IV angina. PROCEDURE PERFORMED: 1. Retrograde left heart catheterization with left ventriculography, selective coronary angiography, saphenous venous graft angiography and left internal mammary artery angiography. 2. Moderate sedation. ACCESS SITE: Right femoral artery. EQUIPMENT USED: A 5 Gabonese pigtail catheter, 5 Gabonese JL4 and AR modified coronary catheters. MEDICATIONS: Versed IV, fentanyl IV. CONTRAST: Omnipaque 125 mL. COMPLICATIONS: None. ESTIMATED BLOOD LOSS: Less than 10 mL. METHOD OF HEMOSTASIS: VASCADE closure. RESULTS: A. HEMODYNAMICS: Heart rate 71 beats per minute. Left ventricular end-diastolic pressure 11 mmHg, left ventricle 126/11, aorta 126/54/77. B. LEFT VENTRICULOGRAPHY: Ejection fraction 15% with severe global hypokinesis and apical akinesis. There was evidence of severe left ventricular dilatation. C. CORONARY ANGIOGRAPHY: The left main coronary artery is patent. The left anterior descending coronary artery is totally occluded in the proximal portion. The first diagonal artery is occluded. The left circumflex artery is occluded in the proximal portion distally to the second marginal branch. OM1 is a small, patent. OM2 is a large vessel which is patent. The right coronary artery is a dominant vessel with 50% stenosis in the proximal portion and 50% stenosis in the distal portion. The PDA is small, patent. PLV is totally occluded in the mid portion. Three saphenous venous grafts are all occluded. Left internal mammary artery graft to the left anterior descending coronary artery is patent. Mid LAD has 99% stenosis distal to the anastomosis and was diffusely heavily calcified. Apical LAD has competitive flow. DIAGNOSES: 1. Severe multivessel coronary disease with patent left internal mammary artery graft to the left anterior descending artery with severe diffuse disease in the left anterior descending artery and 3 occluded vein grafts. 2. Very severe left ventricular systolic dysfunction consistent with ischemic cardiomyopathy. DISPOSITION: Mr. Wilder was found to have evidence of severe left ventricular systolic dysfunction. His vein grafts are occluded. His GIL graft is patent, but the LAD is diffusely diseased. The circumflex artery is totally occluded. The right coronary artery has moderate diffuse disease. I recommend to continue therapy for congestive heart failure and aggressive modification of his cardiac risk factors. He will be monitored on telemetry. Dr. Jamison, his primary cognos tm1 developer, will take over his care next week. MD SAVANNA Parr/nico/ , 04:52 PM , 05:02 PM BEULAH
--- NOTE | 2018-04-25 20:22 | ECG ---
Date Performed: 04/24/2018 Time Performed: 13:21:25 PTAGE: 83 years EKG: [place] Fibrillation/Flutter Controlled ventricular rate Nonspecific ST abnormalities PREVIOUS TRACING : 04/24/2018 06.41 Since the previous tracing, no significant change not ed DOCTOR: Carlos Holliday Interpretating Date/Time 04/25/2018 20:22:16
--- NOTE | 2018-04-25 20:24 | ECG ---
Date Performed: 04/24/2018 Time Performed: 20:05:34 PTAGE: 83 years EKG: Atrial fibrillation with controlled ventricular rate Vnetrricular premature complexes Nonsp ecific ST-T wave changes Abnormal ECG PREVIOUS TRACING : 04/24/2018 13.21 Since the previous tracing, no significant change noted DOCTOR: Carlos Holliday Interpretating Date/Time 04/25/2018 20:23:34
[2018-04-26] MEDS: Isosorbide Mononitrate 60 MG ER 24HR Tablet (Imdur) PO SCH (06:18)
[2018-04-26] MEDS: Insulin NovoLOG Aspart Correctional Sugar Inj SQ SCH ×4 (08:32→21:35)
[2018-04-26] MEDS: Tolterodine Tartrate LA 2 MG Capsule PO SCH (08:33)
[2018-04-26] MEDS: Rivaroxaban 20 MG Tablet PO SCH (08:33)
[2018-04-26] MEDS: Ranolazine 500 MG 12HR ER Tablet PO SCH ×2 (08:33→21:34)
[2018-04-26] MEDS: Sodium Chloride 0.9% 2 ML Flush BID IV.FLUSH SCH ×2 (10:25→21:34)
[2018-04-26] MEDS: Sod Chloride 0.9% Inj 1,000 ML IV.CONT SCH (11:56)
--- NOTE | 2018-04-26 15:59 | P.PNIM ---
Subjective Interval history: Patient denies any chest pain overnight. Patient has shortness of breath when ambulating. Physical Exam Vital signs: Vital Signs 04/25/18 16:00 04/25/18 18:00 04/25/18 19:00 Temperature 98.6 F Pulse Rate 67 68 64 Respiratory Rate 18 Blood Pressure 121/71 Pulse Oximetry 94 L 04/25/18 20:00 04/25/18 21:00 04/25/18 22:00 Temperature 97.7 F Pulse Rate 67 69 73 Respiratory Rate 18 Blood Pressure 105/70 Pulse Oximetry 96 04/25/18 23:00 04/26/18 00:00 04/26/18 01:00 Temperature 97.8 F Pulse Rate 67 70 75 Respiratory Rate 18 Blood Pressure 112/59 L Pulse Oximetry 93 L 04/26/18 02:00 04/26/18 03:00 04/26/18 04:00 Temperature 98.4 F Pulse Rate 83 86 65 Respiratory Rate 18 Blood Pressure 116/80 Pulse Oximetry 96 04/26/18 05:00 04/26/18 06:00 04/26/18 07:00 Temperature 98.7 F Pulse Rate 74 72 75 Respiratory Rate 16 Blood Pressure 96/52 L Pulse Oximetry 94 L 04/26/18 08:00 04/26/18 09:00 04/26/18 10:00 Temperature Pulse Rate 70 76 90 Respiratory Rate Blood Pressure Pulse Oximetry 94 L 04/26/18 11:00 04/26/18 12:00 04/26/18 12:47 Temperature 97.4 F L Pulse Rate 90 74 Respiratory Rate 16 Blood Pressure 102/63 Pulse Oximetry 92 L 96 04/26/18 13:00 04/26/18 14:00 04/26/18 15:00 Temperature 98.8 F Pulse Rate 86 68 66 Respiratory Rate 16 Blood Pressure 112/60 Pulse Oximetry 100 Intake & Output 04/25/18 04/26/18 04/26/18 18:59 06:59 18:59 Intake Total 1480 / 1480 1360 / 1360 Output Total 600 / 600 900 / 900 Balance 880 / 880 460 / 460 Weight 68 kg Intake: IV 1000 / 1000 1000 / 1000 NS Inj 1,000 ML @ 42 mls/hr IV. 1000 / 1000 1000 / 1000 CONT .[id number] [facility] Rx#:[id number] Oral 480 / 480 360 / 360 Output: Urine 600 / 600 900 / 900 Other: Date of Last Bowel Movement 04/23/18 04/23/18 04/23/18 Narrative: General patient in no acute distress, no chest pain HEENT extraocular movements are intact, clear oropharyngeal mucosa, no JVD Cardiovascular S1-S2 audible, RRR, no murmurs rubs or gallops Respiratory clear to auscultation bilaterally, patient still requiring supplemental oxygen. Abdomen soft, nontender, nondistended, normal bowel sounds Extremities no edema 2+ distal pulses in bilateral upper and lower extremities Neuro cranial nerves II through XII intact Results - Labs CBC & Chem 7: 04/25/18 05:55 04/25/18 05:55 Laboratory Results - last 24 hr 04/25/18 04/25/18 04/26/18 17:29 22:37 08:17 POC Glucose 227 H 274 H 227 H 04/26/18 11:54 POC Glucose 341 H Assessment and Plan - Plan This patient is an 83-year-old male with a diagnosis of coronary artery disease status post CABG x6 in 2005, diabetes mellitus type 2. The patient presented to our emergency room with complaints of left-sided chest pain and palpitations and was found to be in atrial flutter with RVR. Patient also has systolic CHF and was found to have pulmonary vascular congestion on chest x-ray and was subsequently started on a nitroglycerin drip and diltiazem drip to control heart rate and help with CHF exacerbation. 1. NSTEMI 2. Severe systolic CHF ejection fraction 15% 3. Atrial flutter with RVR likely secondary to #1 and 2. Patient denies any chest pain today. The patient underwent a cardiac catheterization yesterday which revealed severe left ventricular systolic dysfunction ejection fraction 15%. Diffuse disease of the LAD. The circumflex artery was totally occluded the right coronary artery has moderate diffuse disease. His GIL graft is patent. His vein grafts are occluded. Cardiology recommends continuing therapy for congestive heart failure and aggressive modification of his cardiac risk factors. We will continue to monitor the patient on telemetry and continue to follow-up with the recommendations. I will follow-up with cardiology, patient will likely need a LifeVest on discharge given his severe systolic CHF. Continue Plavix, beta-brenda, Ranexa, Xarelto. Heart rate currently under control. 4. Diabetes mellitus type 2 Continue low-dose insulin sliding scale after a cardiac catheterization. His diabetes medication regimen will be adjusted as needed. DVT prophylaxis, patient is on Xarelto.
[2018-04-27] MEDS: Isosorbide Mononitrate 60 MG ER 24HR Tablet (Imdur) PO SCH (06:11)
[2018-04-27] MEDS: Insulin NovoLOG Aspart Correctional Sugar Inj SQ SCH ×4 (08:28→20:45)
[2018-04-27] MEDS: Lisinopril 5 MG Tablet PO SCH (08:29)
[2018-04-27] MEDS: Ranolazine 500 MG 12HR ER Tablet PO SCH ×2 (08:29→20:45)
[2018-04-27] MEDS: Tolterodine Tartrate LA 2 MG Capsule PO SCH (08:31)
[2018-04-27] MEDS: Sodium Chloride 0.9% 2 ML Flush BID IV.FLUSH SCH ×2 (08:31→20:45)
[2018-04-27] MEDS: Rivaroxaban 20 MG Tablet PO SCH (08:31)
[2018-04-27 09:22] LABS: Hematocrit 25.2 % (39.0-51.0); Hemoglobin 8.5 gm/dL (13.0-17.0)
[2018-04-27 09:49] LABS: Calcium 8.4 mg/dL (8.5-10.1); Carbon Dioxide 23.2 meq/L (21.0-32.0); Magnesium 1.6 mg/dL (1.5-2.5); Potassium 4.6 meq/L (3.5-5.1)
[2018-04-27] MEDS: Sod Chloride 0.9% Inj 1,000 ML IV.CONT SCH (09:50)
[2018-04-27] MEDS ORDERED: Magnesium Sulfate Inj 2 GM in Sodium Chlor 0.9% Inj 96 ML IV.SIG ONE (18:16)
[2018-04-27 18:32] LABS: Bilirubin,Urine Negative (Negative); Clarity,Urine Hazy (Clear); Color,Urine Amber (Yellw/Straw); Glucose,Urine (UA) 150 mg/dL (Negative); Leukocyte Esterase,Urine Negative (Negative); Mucus,Urine Few /lpf (Occasional); Nitrite,Urine Negative (Negative); Specific Gravity,Urine 1.024 (1.002-1.035)
--- NOTE | 2018-04-27 18:38 | P.PNIM ---
Subjective Interval history: Patient denies any chest pain. He does not have any other complaints today. He appears to be comfortable watching football. Physical Exam Vital signs: Vital Signs 04/26/18 20:00 04/26/18 21:00 04/26/18 22:00 Temperature Pulse Rate 82 80 71 Respiratory Rate Blood Pressure Pulse Oximetry 96 04/26/18 23:00 04/27/18 00:00 04/27/18 01:00 EST Temperature 97.7 F Pulse Rate 60 88 64 Respiratory Rate 16 Blood Pressure 98/56 L Pulse Oximetry 96 04/27/18 02:00 04/27/18 03:00 04/27/18 04:00 Temperature 98.0 F Pulse Rate 73 88 64 Respiratory Rate 18 Blood Pressure 107/52 L Pulse Oximetry 96 04/27/18 05:00 04/27/18 06:00 04/27/18 07:00 Temperature 97.6 F Pulse Rate 83 76 87 Respiratory Rate 20 Blood Pressure 103/57 L Pulse Oximetry 91 L 04/27/18 08:00 04/27/18 09:00 04/27/18 10:00 Temperature Pulse Rate 80 84 82 Respiratory Rate Blood Pressure Pulse Oximetry 91 L 04/27/18 11:00 04/27/18 12:00 04/27/18 13:00 Temperature 97.9 F Pulse Rate 82 82 78 Respiratory Rate 20 Blood Pressure 109/62 Pulse Oximetry 96 04/27/18 14:00 04/27/18 15:00 04/27/18 16:00 Temperature 97.8 F Pulse Rate 70 64 73 Respiratory Rate 20 Blood Pressure 97/51 L Pulse Oximetry 98 Intake & Output 04/26/18 04/27/18 04/27/18 19:59 06:59 18:59 Intake Total 1000 / 1000 Output Total Balance 1000 / 1000 Weight Intake: IV 1000 / 1000 NS Inj 1,000 ML @ 42 mls/hr IV. 1000 / 1000 CONT .[id number] [facility] Rx#:[id number] Oral Output: Urine Other: # Voids Date of Last Bowel Movement Narrative: General patient in no acute distress, no chest pain HEENT extraocular movements are intact, clear oropharyngeal mucosa, no JVD Cardiovascular S1-S2 audible, RRR, no murmurs rubs or gallops Respiratory clear to auscultation bilaterally, patient still requiring supplemental oxygen. Abdomen soft, nontender, nondistended, normal bowel sounds Extremities no edema 2+ distal pulses in bilateral upper and lower extremities. Patient has 2 wounds to his shins bilaterally. Neuro cranial nerves II through XII intact Results - Labs CBC & Chem 7: 04/27/18 07:28 04/27/18 07:28 Laboratory Results - last 24 hr 04/26/18 04/27/18 04/27/18 21:24 07:28 07:28 Hgb 8.5 L Hct 25.2 L Sodium 140 Potassium 4.6 Chloride 108 H Carbon Dioxide 23.2 Anion Gap 9 BUN 28 H Creatinine 0.96 Estimated GFR 75 L POC Glucose 312 H Random Glucose 200 H Calcium 8.4 L Magnesium 1.6 Total Creatine Kinase 04/27/18 04/27/18 04/27/18 08:02 12:09 15:18 Hgb Hct Sodium Potassium Chloride Carbon Dioxide Anion Gap BUN Creatinine Estimated GFR POC Glucose 285 H 319 H Random Glucose Calcium Magnesium Total Creatine Kinase 32 L 04/27/18 17:12 Hgb Hct Sodium Potassium Chloride Carbon Dioxide Anion Gap BUN Creatinine Estimated GFR POC Glucose 291 H Random Glucose Calcium Magnesium Total Creatine Kinase Assessment and Plan - Plan This patient is an 83-year-old male with a diagnosis of coronary artery disease status post CABG x6 in 2005, diabetes mellitus type 2. The patient presented to our emergency room with complaints of left-sided chest pain and palpitations and was found to be in atrial flutter with RVR. Patient also has systolic CHF and was found to have pulmonary vascular congestion on chest x-ray and was subsequently started on a nitroglycerin drip and diltiazem drip to control heart rate and help with CHF exacerbation. 1. NSTEMI 2. Severe systolic CHF ejection fraction 15% 3. Atrial flutter with RVR likely secondary to #1 and 2. Patient denies any chest pain today. The patient underwent a cardiac catheterization yesterday which revealed severe left ventricular systolic dysfunction ejection fraction 15%. Diffuse disease of the LAD. The circumflex artery was totally occluded the right coronary artery has moderate diffuse disease. His GIL graft is patent. His vein grafts are occluded. Cardiology recommends continuing therapy for congestive heart failure and aggressive modification of his cardiac risk factors. Patient will need a LifeVest on discharge given his severe systolic CHF. Continue Plavix, beta-brenda, Ranexa, Xarelto. Heart rate currently under control. 4. Acute hypoxic respiratory failure secondary to #2 and possibly COPD Patient has extensive tobacco smoking history. While at rest the patient does not have any significant complaints of shortness of breath however when he ambulates he becomes hypoxic. We will continue supplemental oxygen for today and reassess the patient tomorrow. A walk test will be performed tomorrow the patient may need home oxygen. We we will start breathing treatments as needed for shortness of breath. 5. Diabetes mellitus type 2 Patient was started on Lantus today. Continue low-dose sliding scale. I will adjust his diabetes medication regimen as needed. 6. Toe ulcerations. Patient has ulcerations to his right first digit and right fourth toe. Continue wound care. DVT prophylaxis, patient is on Xarelto.
[2018-04-27] MEDS: Insulin Detemir Inj 1,000 UNIT/10 ML Vial SQ SCH (20:45)
[2018-04-28] MEDS: Isosorbide Mononitrate 60 MG ER 24HR Tablet (Imdur) PO SCH (06:17)
[2018-04-28 07:33] LABS: Carbon Dioxide 24.4 meq/L (21.0-32.0); Potassium 4.3 meq/L (3.5-5.1)
[2018-04-28] MEDS: Lisinopril 5 MG Tablet PO SCH (08:59)
[2018-04-28] MEDS: Tolterodine Tartrate LA 2 MG Capsule PO SCH (08:59)
[2018-04-28] MEDS: Rivaroxaban 20 MG Tablet PO SCH (08:59)
[2018-04-28] MEDS: Ranolazine 500 MG 12HR ER Tablet PO SCH ×2 (09:00→21:02)
[2018-04-28] MEDS: Sodium Chloride 0.9% 2 ML Flush BID IV.FLUSH SCH ×2 (09:01→21:02)
[2018-04-28] MEDS: Insulin NovoLOG Aspart Correctional Sugar Inj SQ SCH ×4 (09:01→21:03)
--- NOTE | 2018-04-28 09:43 | P.PNCA ---
Subjective Interval history: The patient's primary complaints this morning is difficulty sleeping due to "an uncomfortable bed." He denies CP or SOB at rest. He has stable BLE edema. No palpitations. Currently rate controlled atrial fibrillation. BP and HR stable. Has not ambulated for the past three days. Family bedside. Has questions about lifevest to [facility]. Medications and Allergies Active Medications: Active Medications Acetaminophen (Tylenol) 650 mg PO Q4H PRN PRN Reason: Temp > 100.4 Al Hydroxide/Mg Hydroxide (Milk Of Leeanna Liq) 30 ml PO Q12H PRN PRN Reason: Mild Constipation Albuterol (Duoneb Neb (Prn)) 1 ampul NEB Q4HR NEB PRN PRN Reason: SHORTNESS OF BREATH/WHEEZING Atorvastatin Calcium (Lipitor) 80 mg PO [facility] Last Admin: 04/27/18 20:45 Dose: 80 mg Dextrose (D50w Vial) 50 ml IV.PUSH UNSCH PRN PRN Reason: PER HYPOGLYCEMIA PROTOCOL Glucagon (Glucagon Inj) 1 mg OTHER PRN PRN PRN Reason: for Hypoglycemia Protocol Insulin Aspart (Novolog Insulin Correctional Sugar Inj) 0 unit SQ [facility]; Protocol Last Admin: 04/28/18 09:01 Dose: Not Given Insulin Detemir (Levemir Inj) 15 unit SQ [facility] Last Admin: 04/27/18 20:45 Dose: 15 unit Isosorbide Mononitrate (Imdur) 60 mg PO DAILY@0700 REPLACED BY [facility] Last Admin: 04/28/18 06:17 Dose: 60 mg Lisinopril (Prinivil) 2.5 mg PO DAILY REPLACED BY [facility] Last Admin: 04/28/18 08:59 Dose: 2.5 mg Metoprolol Succinate (Toprol Xl) 200 mg PO DAILY REPLACED BY [facility] Last Admin: 04/28/18 09:00 Dose: 200 mg Miscellaneous (Pill Splitter) [facility] Ondansetron HCl (Zofran Inj) 4 mg IV.PUSH Q6H PRN PRN Reason: NAUSEA OR VOMITING Last Admin: 04/25/18 21:20 Dose: 4 mg Ranolazine (Ranexa) 1,000 mg PO BID REPLACED BY [facility] Last Admin: 04/28/18 09:00 Dose: 1,000 mg Rivaroxaban (Xarelto) 20 mg PO DAILY REPLACED BY [facility] Last Admin: 04/28/18 08:59 Dose: 20 mg Sodium Chloride (Ns Flush) 2 ml IV.FLUSH BID REPLACED BY [facility] Last Admin: 04/28/18 09:01 Dose: 2 ml Sodium Chloride (Ns Flush) 2 ml IV.FLUSH PRN PRN PRN Reason: FLUSH AFTER USING IV ACCESS Tolterodine Tartrate (Detrol La) 2 mg PO DAILY REPLACED BY [facility] Last Admin: 04/28/18 08:59 Dose: 2 mg Allergies Allergy/AdvReac Type Severity Reaction Status Date / Time No Known Allergies AdvReac Unknown Uncoded 08/08/17 14:07 Home Medications Medication Instructions Recorded Confirmed Type aspirin 81 mg PO DAILY 04/24/18 04/24/18 History atorvastatin 40 mg PO DAILY 04/24/18 04/24/18 History insulin glargine [Lantus U-100 100 unit SUBCUT DAILY 04/24/18 04/24/18 History Insulin] isosorbide mononitrate 120 mg PO QAM 04/24/18 04/24/18 History metformin [Glucophage] 1,000 mg PO BID 04/24/18 04/24/18 History metoprolol succinate [Toprol XL] 200 mg PO DAILY 04/24/18 04/24/18 History ranitidine HCl 150 mg PO DAILY 04/24/18 04/24/18 History ranolazine [Ranexa] 1,000 mg PO BID 04/24/18 04/24/18 History rivaroxaban [Xarelto] 25 mg PO DAILY 04/24/18 04/24/18 History solifenacin [Vesicare] 5 mg PO DAILY 04/24/18 04/24/18 History Physical Exam Vital signs: Vital Signs 04/27/18 10:00 04/27/18 11:00 04/27/18 12:00 Temperature 97.9 F Pulse Rate 82 82 82 Respiratory Rate 20 Blood Pressure 109/62 Pulse Oximetry 96 04/27/18 13:00 04/27/18 14:00 04/27/18 15:00 Temperature 97.8 F Pulse Rate 78 70 64 Respiratory Rate 20 Blood Pressure 97/51 L Pulse Oximetry 98 04/27/18 16:00 04/27/18 17:00 04/27/18 18:00 Temperature Pulse Rate 73 68 72 Respiratory Rate Blood Pressure Pulse Oximetry 04/27/18 19:00 04/27/18 20:00 04/27/18 20:50 Temperature 97.8 F Pulse Rate 70 68 Respiratory Rate 16 Blood Pressure 96/53 L Pulse Oximetry 98 98 94 L 04/27/18 21:00 04/27/18 22:00 04/27/18 23:00 Temperature 98.2 F Pulse Rate 62 68 72 Respiratory Rate 14 Blood Pressure 109/50 L Pulse Oximetry 99 04/28/18 00:00 04/28/18 01:00 04/28/18 02:00 Temperature Pulse Rate 66 62 62 Respiratory Rate Blood Pressure Pulse Oximetry 04/28/18 03:00 04/28/18 04:00 04/28/18 05:00 Temperature 97.6 F Pulse Rate 63 66 65 Respiratory Rate 14 Blood Pressure 96/51 L Pulse Oximetry 99 04/28/18 06:00 04/28/18 07:00 Temperature 98.6 F Pulse Rate 66 67 Respiratory Rate 16 Blood Pressure 111/60 Pulse Oximetry 95 Intake & Output 04/27/18 04/28/18 04/28/18 18:59 06:59 18:59 Intake Total 1000 / 1000 980 / 980 Output Total 425 / 425 Balance 1000 / 1000 555 / 555 Weight 71.441 kg Intake: IV 1000 / 1000 500 / 500 NS Inj 1,000 ML @ 42 mls/hr IV. 1000 / 1000 400 / 400 CONT .[id number] REPLACED BY [facility] Rx#:[id number] Magnesium Sulfate Inj 2 GM In 100 / 100 NS Inj 96 ML @ 50 mls/hr IV.SIG ONCE ONE Rx#:[id number] Oral 480 / 480 Output: Urine 425 / 425 Other: # Voids 3 - Constitutional no acute distress - Routine HEENT Exam Head: Present: normocephalic, atraumatic Eye: Present: EOMI ENT: Present: mucous membranes moist - Routine Neck Exam Present: supple, JVD - Routine Respiratory Exam Present: CTA bilaterally - Routine Cardiovascular Exam Present: murmur, irregularly irregular - Routine Abdominal Exam Present: soft - Routine Extremities Exam Present: edema - Routine Skin Exam Present: intact - Routine Neurological Exam Present: alert, oriented X3 - Routine Psychiatric Exam Present: normal affect, normal thought process Results 04/27/18 07:28 04/28/18 06:06 CBC 04/27/18 Range/Units 07:28 Hgb 8.5 L (13.0-17.0) gm/dL Hct 25.2 L (39.0-51.0) % Comprehensive Metabolic Panel 04/27/18 04/28/18 Range/Units 07:28 06:06 Sodium 140 142 (136-145) meq/L Potassium 4.6 4.3 (3.5-5.1) meq/L Chloride 108 H 109 H (98-107) meq/L Carbon Dioxide 23.2 24.4 (21.0-32.0) meq/L BUN 28 H 27 H (7-18) mg/dL Creatinine 0.96 0.95 (0.60-1.30) mg/dL Calcium 8.4 L 9.0 (8.5-10.1) mg/dL Intake and Output 04/27/18 04/28/18 04/28/18 22:59 06:59 14:59 Intake Total 400 / 400 580 / 580 Output Total 425 / 425 Balance 400 / 400 155 / 155 Intake: IV 400 / 400 100 / 100 NS Inj 1,000 ML @ 42 mls/hr IV. 400 / 400 CONT .[id number] REPLACED BY [facility] Rx#:[id number] Magnesium Sulfate Inj 2 GM In 100 / 100 NS Inj 96 ML @ 50 mls/hr IV.SIG ONCE ONE Rx#:[id number] Oral 480 / 480 Output: Urine 425 / 425 Other: # Voids 3 Weight 71.441 kg - EKG Interpretation EKG shows: atrial fibrillation Assessment and Plan - Plan Assessment: NSTEMI s/p cardiac cath 04/25/2018 ASHD hx of CABG. 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 Ischemic cardiomyopathy EF 15% Acute on chronic CHF exacerbation Atrial fibrillation/flutter anticoagulated on Xarelto PAD Anemia Plan: Patient and family will discuss LIFEVEST further with Dr Jamison Resume diuretics and ASA Continue Renexa, Imdur, metoprolol succinate, lisinopril, statin Ambulate with RN today Discharge soon The case was discussed with Dr Jamison who completed face to face encounter, physical exam and participated in evaluation and management.
[2018-04-28] MEDS: Torsemide 20 MG Tablet PO SCH (10:52)
--- NOTE | 2018-04-28 15:20 | P.PNIM ---
Subjective Interval history: Patient denies any chest pain. He does not have any other complaints today. He is asking about his life vest. Physical Exam Vital signs: Vital Signs 04/27/18 16:00 04/27/18 17:00 04/27/18 18:00 Temperature Pulse Rate 73 68 72 Respiratory Rate Blood Pressure Pulse Oximetry 04/27/18 19:00 04/27/18 20:00 04/27/18 20:50 Temperature 97.8 F Pulse Rate 70 68 Respiratory Rate 16 Blood Pressure 96/53 L Pulse Oximetry 98 98 94 L 04/27/18 21:00 04/27/18 22:00 04/27/18 23:00 Temperature 98.2 F Pulse Rate 62 68 72 Respiratory Rate 14 Blood Pressure 109/50 L Pulse Oximetry 99 04/28/18 00:00 04/28/18 01:00 04/28/18 02:00 Temperature Pulse Rate 66 62 62 Respiratory Rate Blood Pressure Pulse Oximetry 04/28/18 03:00 04/28/18 04:00 04/28/18 05:00 Temperature 97.6 F Pulse Rate 63 66 65 Respiratory Rate 14 Blood Pressure 96/51 L Pulse Oximetry 99 04/28/18 06:00 04/28/18 07:00 04/28/18 08:00 Temperature 98.6 F Pulse Rate 66 69 70 Respiratory Rate 16 Blood Pressure 111/60 Pulse Oximetry 95 95 04/28/18 09:00 04/28/18 10:00 04/28/18 11:00 Temperature 97.4 F L Pulse Rate 70 70 70 Respiratory Rate 16 Blood Pressure 91/48 L Pulse Oximetry 92 L Intake & Output 04/27/18 04/28/18 04/28/18 18:59 06:59 18:59 Intake Total 1000 / 1000 980 / 980 Output Total 425 / 425 Balance 1000 / 1000 555 / 555 Weight 71.441 kg Intake: IV 1000 / 1000 500 / 500 NS Inj 1,000 ML @ 42 mls/hr IV. 1000 / 1000 400 / 400 CONT .[id number] [facility] Rx#:[id number] Magnesium Sulfate Inj 2 GM In 100 / 100 NS Inj 96 ML @ 50 mls/hr IV.SIG ONCE ONE Rx#:[id number] Oral 480 / 480 Output: Urine 425 / 425 Other: # Voids 3 Narrative: General patient in no acute distress, no chest pain HEENT extraocular movements are intact, clear oropharyngeal mucosa, no JVD Cardiovascular S1-S2 audible Respiratory clear to auscultation bilaterally, patient still requiring supplemental oxygen. Abdomen soft, nontender, nondistended, normal bowel sounds Extremities no edema 2+ distal pulses in bilateral upper and lower extremities. Patient has 2 wounds to his shins bilaterally. Neuro cranial nerves II through XII intact Results - Labs CBC & Chem 7: 04/27/18 07:28 04/28/18 06:06 Laboratory Results - last 24 hr 04/27/18 04/27/18 04/27/18 15:18 17:12 18:00 Sodium Potassium Chloride Carbon Dioxide Anion Gap BUN Creatinine Estimated GFR POC Glucose 291 H Random Glucose Calcium Magnesium Total Creatine Kinase 32 L Urine Color Roxane Urine Clarity Hazy H Urine pH 5.0 Ur Specific [place] 1.024 Urine Protein Negative Urine Glucose (UA) 150 H Urine Ketones Negative Urine Occult Blood Negative Urine Nitrate Negative Urine Bilirubin Negative Urine Urobilinogen 2.0 H Ur Leukocyte Esterase Negative Urine RBC Less than 1 Urine WBC 2 Urine Mucus Few H Ur Microscopic Review Not Reportable 04/27/18 04/28/18 04/28/18 19:38 06:06 07:31 Sodium 142 Potassium 4.3 Chloride 109 H Carbon Dioxide 24.4 Anion Gap 9 BUN 27 H Creatinine 0.95 Estimated GFR 76 L POC Glucose 339 H 146 H Random Glucose 95 D Calcium 9.0 Magnesium 2.0 Total Creatine Kinase Urine Color Urine Clarity Urine pH Ur Specific [place] Urine Protein Urine Glucose (UA) Urine Ketones Urine Occult Blood Urine Nitrate Urine Bilirubin Urine Urobilinogen Ur Leukocyte Esterase Urine RBC Urine WBC Urine Mucus Ur Microscopic Review 04/28/18 10:59 Sodium Potassium Chloride Carbon Dioxide Anion Gap BUN Creatinine Estimated GFR POC Glucose 303 H Random Glucose Calcium Magnesium Total Creatine Kinase Urine Color Urine Clarity Urine pH Ur Specific [place] Urine Protein Urine Glucose (UA) Urine Ketones Urine Occult Blood Urine Nitrate Urine Bilirubin Urine Urobilinogen Ur Leukocyte Esterase Urine RBC Urine WBC Urine Mucus Ur Microscopic Review Assessment and Plan - Plan This patient is an 83-year-old male with a diagnosis of coronary artery disease status post CABG x6 in 2005, diabetes mellitus type 2. The patient presented to our emergency room with complaints of left-sided chest pain and palpitations and was found to be in atrial flutter with RVR. Patient also has systolic CHF and was found to have pulmonary vascular congestion on chest x-ray and was subsequently started on a nitroglycerin drip and diltiazem drip to control heart rate and help with CHF exacerbation. 1. NSTEMI 2. Severe systolic CHF ejection fraction 15% 3. Atrial flutter with RVR likely secondary to #1 and 2. Patient denies chest pain, no palpitations. He is awaiting a LifeVest, currently unsafe discharge without the LifeVest. Case discussed with case management today during 's. The patient underwent a cardiac catheterization yesterday which revealed severe left ventricular systolic dysfunction ejection fraction 15%. Diffuse disease of the LAD. The circumflex artery was totally occluded the right coronary artery has moderate diffuse disease. His GIL graft is patent. His vein grafts are occluded. Cardiology recommends continuing therapy for congestive heart failure and aggressive modification of his cardiac risk factors. Patient will need a LifeVest on discharge given his severe systolic CHF. Continue Plavix, beta-brenda, Ranexa, Xarelto. Heart rate currently under control. 4. Acute hypoxic respiratory failure secondary to #2 and possibly COPD Patient has extensive tobacco smoking history. While at rest the patient does not have any significant complaints of shortness of breath however when he ambulates he becomes hypoxic. Titrating off supplemental oxygen. Patient may benefit from being a jail facility after discharge. Plan for discharge discussed with case management today. 5. Diabetes mellitus type 2 Patient was started on Lantus. Blood sugars better controlled today. Continue low-dose sliding scale. I will adjust his diabetes medication regimen as needed. 6. Toe ulcerations. Patient has ulcerations to his right first digit and right fourth toe. Continue wound care. DVT prophylaxis, patient is on Xarelto.
[2018-04-28] MEDS: Insulin Detemir Inj 1,000 UNIT/10 ML Vial SQ SCH (21:02)
[2018-04-29] MEDS: Isosorbide Mononitrate 60 MG ER 24HR Tablet (Imdur) PO SCH (06:00)
[2018-04-29] MEDS: Tolterodine Tartrate LA 2 MG Capsule PO SCH (09:12)
[2018-04-29] MEDS: Torsemide 20 MG Tablet PO SCH (09:13)
[2018-04-29] MEDS: Ranolazine 500 MG 12HR ER Tablet PO SCH (09:13)
[2018-04-29] MEDS: Lisinopril 5 MG Tablet PO SCH (09:13)
[2018-04-29] MEDS: Rivaroxaban 20 MG Tablet PO SCH (09:13)
[2018-04-29] MEDS: Insulin NovoLOG Aspart Correctional Sugar Inj SQ SCH ×3 (09:13→16:55)
[2018-04-29] MEDS: Sodium Chloride 0.9% 2 ML Flush BID IV.FLUSH SCH (09:14)
--- NOTE | 2018-04-29 14:38 | P.PNCA ---
Subjective Interval history: The patient feels well. Ambulated in the hallway without CP or SOB. Continues to have mild BLE edema. No palpitations. Hemodynamically stable. Medications and Allergies Allergies Allergy/AdvReac Type Severity Reaction Status Date / Time No Known Allergies AdvReac Unknown Uncoded 08/08/17 14:07 Home Medications Medication Instructions Recorded Confirmed Type aspirin 81 mg PO DAILY 04/24/18 04/24/18 History atorvastatin 40 mg PO DAILY 04/24/18 04/24/18 History insulin glargine [Lantus U-100 100 unit SUBCUT DAILY 04/24/18 04/24/18 History Insulin] isosorbide mononitrate 120 mg PO QAM 04/24/18 04/24/18 History metformin [Glucophage] 1,000 mg PO BID 04/24/18 04/24/18 History metoprolol succinate [Toprol XL] 200 mg PO DAILY 04/24/18 04/24/18 History ranitidine HCl 150 mg PO DAILY 04/24/18 04/24/18 History ranolazine [Ranexa] 1,000 mg PO BID 04/24/18 04/24/18 History rivaroxaban [Xarelto] 25 mg PO DAILY 04/24/18 04/24/18 History solifenacin [Vesicare] 5 mg PO DAILY 04/24/18 04/24/18 History Active Medications: Active Medications Acetaminophen (Tylenol) 650 mg PO Q4H PRN PRN Reason: Temp > 100.4 Al Hydroxide/Mg Hydroxide (Milk Of [place] Liq) 30 ml PO Q12H PRN PRN Reason: Mild Constipation Albuterol (Duoneb Neb (Prn)) 1 ampul NEB Q4HR NEB PRN PRN Reason: SHORTNESS OF BREATH/WHEEZING Atorvastatin Calcium (Lipitor) 80 mg PO HS [facility] Last Admin: 04/28/18 21:02 Dose: 80 mg Clopidogrel Bisulfate (Plavix) 75 mg PO DAILY [facility] Last Admin: 04/29/18 09:13 Dose: 75 mg Dextrose (D50w Vial) 50 ml IV.PUSH UNSCH PRN PRN Reason: PER HYPOGLYCEMIA PROTOCOL Glucagon (Glucagon Inj) 1 mg OTHER PRN PRN PRN Reason: for Hypoglycemia Protocol Insulin Aspart (Novolog Insulin Correctional Sugar Inj) 0 unit SQ [facility]S [facility]; Protocol Last Admin: 04/29/18 13:25 Dose: 5 unit Insulin Detemir (Levemir Inj) 15 unit SQ HS [facility] Last Admin: 04/28/18 21:02 Dose: 15 unit Isosorbide Mononitrate (Imdur) 60 mg PO DAILY@0700 [facility] Last Admin: 04/29/18 06:00 Dose: 60 mg Lisinopril (Prinivil) 2.5 mg PO DAILY [facility] Last Admin: 04/29/18 09:13 Dose: 2.5 mg Metoprolol Succinate (Toprol Xl) 200 mg PO DAILY [facility] Last Admin: 04/29/18 09:13 Dose: 200 mg Miscellaneous (Pill Splitter) 1 each OTHER [facility] Ondansetron HCl (Zofran Inj) 4 mg IV.PUSH Q6H PRN PRN Reason: NAUSEA OR VOMITING Last Admin: 04/25/18 21:20 Dose: 4 mg Ranolazine (Ranexa) 1,000 mg PO BID [facility] Last Admin: 04/29/18 09:13 Dose: 1,000 mg Rivaroxaban (Xarelto) 20 mg PO DAILY [facility] Last Admin: 04/29/18 09:13 Dose: 20 mg Sodium Chloride (Ns Flush) 2 ml IV.FLUSH BID [facility] Last Admin: 04/29/18 09:14 Dose: 2 ml Sodium Chloride (Ns Flush) 2 ml IV.FLUSH PRN PRN PRN Reason: FLUSH AFTER USING IV ACCESS Spironolactone (Aldactone) 25 mg PO DAILY [facility] Tolterodine Tartrate (Detrol La) 2 mg PO DAILY [facility] Last Admin: 04/29/18 09:12 Dose: 2 mg Torsemide (Demadex) 20 mg PO DAILY [facility] Last Admin: 04/29/18 09:13 Dose: 20 mg Physical Exam Vital signs: Vital Signs 04/28/18 15:00 04/28/18 16:00 04/28/18 17:00 Temperature 97.7 F Pulse Rate 69 64 70 Respiratory Rate 16 Blood Pressure 125/62 Pulse Oximetry 100 04/28/18 17:41 04/28/18 18:00 04/28/18 19:00 Temperature 97.7 F Pulse Rate 66 67 Respiratory Rate 16 Blood Pressure 108/65 Pulse Oximetry 96 94 L 04/28/18 20:00 04/28/18 21:00 04/28/18 22:00 Temperature Pulse Rate 71 74 66 Respiratory Rate Blood Pressure Pulse Oximetry 93 L 04/28/18 23:00 04/29/18 00:00 04/29/18 01:00 Temperature 97.9 F Pulse Rate 69 71 69 Respiratory Rate 18 Blood Pressure 110/57 L Pulse Oximetry 96 04/29/18 02:00 04/29/18 03:00 04/29/18 04:00 Temperature 98.1 F Pulse Rate 74 74 70 Respiratory Rate 18 Blood Pressure 108/52 L Pulse Oximetry 96 04/29/18 05:00 04/29/18 06:00 04/29/18 07:00 Temperature 97.4 F L Pulse Rate 74 67 68 Respiratory Rate 16 Blood Pressure 127/70 Pulse Oximetry 95 04/29/18 08:00 04/29/18 09:00 04/29/18 10:00 Temperature Pulse Rate 72 72 72 Respiratory Rate Blood Pressure Pulse Oximetry 95 04/29/18 10:54 04/29/18 11:00 04/29/18 12:00 Temperature 97.6 F Pulse Rate 69 70 Respiratory Rate 16 Blood Pressure 110/58 L Pulse Oximetry 95 95 04/29/18 13:00 Temperature Pulse Rate 70 Respiratory Rate Blood Pressure Pulse Oximetry Intake & Output 04/28/18 04/29/18 04/29/18 18:59 06:59 18:59 Intake Total 720 / 720 240 / 240 Output Total 950 / 950 775 / 775 Balance -230 / -230 -535 / -535 Weight 70.6 kg Intake: Oral 720 / 720 240 / 240 Output: Urine 950 / 950 775 / 775 Other: Date of Last Bowel Movement 04/25/18 04/29/18 - Constitutional no acute distress - Routine HEENT Exam Head: Present: normocephalic, atraumatic Eye: Present: EOMI ENT: Present: mucous membranes moist - Routine Neck Exam Present: supple - Routine Respiratory Exam Present: CTA bilaterally - Routine Cardiovascular Exam Present: irregularly irregular - Routine Abdominal Exam Present: soft - Routine Extremities Exam Present: edema - Routine Skin Exam Present: intact - Routine Neurological Exam Present: alert, oriented X3 - Routine Psychiatric Exam Present: normal affect, normal thought process Results 04/27/18 07:28 04/28/18 06:06 Comprehensive Metabolic Panel 04/28/18 Range/Units 06:06 Sodium 142 (136-145) meq/L Potassium 4.3 (3.5-5.1) meq/L Chloride 109 H (98-107) meq/L Carbon Dioxide 24.4 (21.0-32.0) meq/L BUN 27 H (7-18) mg/dL Creatinine 0.95 (0.60-1.30) mg/dL Calcium 9.0 (8.5-10.1) mg/dL Intake and Output 04/28/18 04/29/18 04/29/18 22:59 06:59 14:59 Intake Total 720 / 720 240 / 240 Output Total 950 / 950 775 / 775 Balance -230 / -230 -535 / -535 Intake: Oral 720 / 720 240 / 240 Output: Urine 950 / 950 775 / 775 Other: Date of Last Bowel Movement 04/25/18 04/25/18 04/29/18 Weight 70.6 kg Assessment and Plan - Plan Assessment: NSTEMI s/p cardiac cath 04/25/2018 ASHD hx of CABG. 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 Ischemic cardiomyopathy EF 15%. Acute on chronic CHF exacerbation Atrial fibrillation/flutter anticoagulated on Xarelto PAD Anemia Plan: Lifevest today. The patient has evidence of low EF in the past. 11/2016 EF 30% on nuclear stress test in [place]. 05/2017 EF 35-40% on echo. We will check limited echo in one month. Follow up in the office in 2 weeks. Add spironolactone 25 mg daily. Follow up BMP and CBC 1 week following discharge. The patient is clear from cardiac standpoint for discharge. The case was discussed with Dr Jamison who completed face to face encounter, physical exam and participated in evaluation and management. The exam, history, and the medical decision-making described in the above note were completed with the assistance of the mid-level provider. I reviewed and agree with the findings presented. I attest that I had a [id number] encounter with the patient on the same day, and personally performed and documented my assessment and findings in the medical record. Discussed with daughter.
--- NOTE | 2018-04-29 15:34 | P.DCO ---
- Physical Therapy Order: Evaluate and treat - Home Health Nursing Order: Medical education, CHF education, Medication education-adverse effect, Nursing assessment with vital signs - Case Management Consult Yes - Certification I have seen patient Octavio Wilder on 04/29/18. My clinical findings support the need for the requested home health care services because: Deconditioned with increased weakness, Limited ability to care for self, High risk of falls I certify that my clinical findings support that this patient is homebound because: Unsafe to leave home unassisted
--- NOTE | 2018-04-29 16:29 | P.DS ---
Date of admission: 04/24/18 08:56 Primary care physician: Pramod Neri MD Brief History from admission: 83-year-old male with a history of coronary artery disease, CABG x6 in 2005, type 2 diabetes. Patient presented with complaints of left-sided chest pain and shortness of breath. He was also experiencing palpitations. Was found to have non-ST segment elevation MA DS: Medications - Discharge Medications Prescriptions: aspirin 81 mg PO DAILY #30 tab atorvastatin 80 mg PO HS #30 tab clopidogrel [Plavix] 75 mg PO DAILY #30 tab isosorbide mononitrate 60 mg PO DAILY@0700 #30 tab lisinopril 2.5 mg PO DAILY #30 tab metoprolol succinate [Toprol XL] 200 mg PO DAILY #30 tab ranolazine [Ranexa] 1,000 mg PO BID #60 tab rivaroxaban [Xarelto] 20 mg PO DAILY #30 tab spironolactone [Aldactone] 25 mg PO DAILY #30 tab torsemide 20 mg PO DAILY #30 tab DS: Summary Hospital Course: This patient is an 83-year-old male with a diagnosis of coronary artery disease status post CABG x6 in 2005, diabetes mellitus type 2. The patient presented to our emergency room with complaints of left-sided chest pain and palpitations and was found to be in atrial flutter with RVR. Patient also has systolic CHF and was found to have pulmonary vascular congestion on chest x-ray and was subsequently started on a nitroglycerin drip and diltiazem drip to control heart rate and help with CHF exacerbation. 1. Non-ST segment elevation MA 2. Severe systolic CHF ejection fraction 15% 3. Atrial flutter with rapid ventricular rate likely secondary to #1 and 2 4. Acute on chronic systolic CHF exacerbation. 5. Acute hypoxic respiratory failure secondary to #4 The patient presented with the symptoms mentioned above including left-sided chest pain and palpitations. He was found to be in atrial flutter with rapid ventricular rate. The patient's troponins were found to be elevated and peaked at 6.97. EKG showed atrial fibrillation with ST segment depressions in the inferior leads. Patient was started on aspirin, Plavix, beta-brenda, statin. He was also started on IV Lasix as he was in CHF exacerbation initially. Cardiology was consulted to evaluate the patient. Cardiac catheterization showed diffuse disease of the LAD. The circumflex artery was totally occluded, the right coronary artery had moderate disease. His vein grafts were occluded. Given the patient's poor EF of 15% the patient will be discharged with a LifeVest. He will be continued on aspirin, statin, Plavix, beta-brenda, Ranexa, Xarelto. The risks and benefits of being on these medications were discussed with the patient detail and he agrees to continue the medications. Prescription for each of these medications were given to the patient. He will be discharged home with home health. He is to follow-up with his primary care doctor this Saturday. As per his daughter he has a scheduled appointment already made. I also recommend that he follows up with cardiology in the next 1-2 weeks. Cardiology has cleared the patient for discharge. Patient is now euvolemic and off of supplemental oxygen. CHF education was given to the patient, he was advised to follow his fluid restriction. 6. Insulin-dependent diabetes Patient is currently on Lantus 15 units subcu nightly. As per the patient he has been taken between 15-25 units of Lantus at night. I advised the patient to continue Lantus at 15 units at night daily and follow-up with his primary care doctor. His diabetes can be managed outpatient. I also recommended the patient have outpatient PFTs done to evaluate for possible COPD. Currently the patient is not short of breath and is on room air. - Time Spent with Patient Total time spent providing and/or coordinating discharge services: Greater than 30 minutes - Quality: VTE Deep Vein Thrombosis/Pulmonary Embolism Present on Admission: No Exam Vital signs: Vital Signs 04/28/18 16:00 04/28/18 17:00 04/28/18 17:41 Temperature Pulse Rate 64 70 Respiratory Rate Blood Pressure Pulse Oximetry 96 04/28/18 18:00 04/28/18 19:00 04/28/18 20:00 Temperature 97.7 F Pulse Rate 66 67 71 Respiratory Rate 16 Blood Pressure 108/65 Pulse Oximetry 94 L 93 L 04/28/18 21:00 04/28/18 22:00 04/28/18 23:00 Temperature 97.9 F Pulse Rate 74 66 69 Respiratory Rate 18 Blood Pressure 110/57 L Pulse Oximetry 96 04/29/18 00:00 04/29/18 01:00 04/29/18 02:00 Temperature Pulse Rate 71 69 74 Respiratory Rate Blood Pressure Pulse Oximetry 04/29/18 03:00 04/29/18 04:00 04/29/18 05:00 Temperature 98.1 F Pulse Rate 74 70 74 Respiratory Rate 18 Blood Pressure 108/52 L Pulse Oximetry 96 04/29/18 06:00 04/29/18 07:00 04/29/18 08:00 Temperature 97.4 F L Pulse Rate 67 68 72 Respiratory Rate 16 Blood Pressure 127/70 Pulse Oximetry 95 95 04/29/18 09:00 04/29/18 10:00 04/29/18 10:54 Temperature Pulse Rate 72 72 Respiratory Rate Blood Pressure Pulse Oximetry 95 04/29/18 11:00 04/29/18 12:00 04/29/18 13:00 Temperature 97.6 F Pulse Rate 69 70 70 Respiratory Rate 16 Blood Pressure 110/58 L Pulse Oximetry 95 Intake & Output 04/28/18 04/29/18 04/29/18 18:59 06:59 18:59 Intake Total 720 / 720 240 / 240 Output Total 950 / 950 775 / 775 Balance -230 / -230 -535 / -535 Weight 70.6 kg Intake: Oral 720 / 720 240 / 240 Output: Urine 950 / 950 775 / 775 Other: Date of Last Bowel Movement 04/25/18 04/29/18 Narrative: General patient in no acute distress HEENT extraocular movements are intact, clear oropharyngeal mucosa, no JVD Cardiovascular S1-S2 audible Respiratory clear to auscultation bilaterally Abdomen soft, nontender, nondistended, normal bowel sounds Extremities no edema Neuro cranial nerves II through XII intact Results Procedures completed during hospitalization: Cardiac catheterization Labs on day of discharge: Labs from last 24 hours 04/29/18 04/29/18 04/28/18 12:40 07:50 20:31 POC Glucose 270 H 181 H 178 H 04/28/18 16:13 POC Glucose 319 H - Impressions ITS Impressions Chest X-Ray 04/24/18 06:47 CONCLUSION: Cardiomegaly with pulmonary edema. Discharge Plan - Discharge Disposition Patient Disposition: W/Home Health Service - Discharge Condition Condition: Stable - Discharge Order Discharge Orders: Discharge Order (Routine); Ordered 04/29/18 Ordered By: Chase Martinez Cardiology Clear for Discharge (Routine); Ordered 04/29/18 Ordered By: Corina Farias - Physicians Team Primary Care Provider: Pramod Nrei Attending Provider: Chase Martinez Other Providers: Jamison Sanford MD
[2018-04-30] MEDS ORDERED: Spironolactone 25 MG Tablet PO SCH (09:00)
== END 2018-04-29 17:01 | disposition home health service (06) ==
LOC: NEPE 06:29 → NEDA 08:56 → HCIS 17:43
PROVIDERS: ADMIT Hospitalist; ATTEND Hospitalist